=== PATIENT | female | born 1980 | race Caucasian/White ===

== ENCOUNTER 2022-03-20 11:50 | Inpatient (IN) ==
[2022-03-20] MEDS ORDERED: GI COCKTAIL ED USE PO ONE ×2 (12:06→17:30)
[2022-03-20] MEDS ORDERED: ONDANSETRON INJ 2 MG/ML 2 ML VIAL IV STA (12:06)
[2022-03-20] MEDS ORDERED: SODIUM CHLORIDE 0.9% 1000ML 2,000 ML IV ONE (12:06)
[2022-03-20] MEDS ORDERED: MoRPHine SULFATE 10 MG/ML CARP/VIAL IV STA ×2 (12:06→13:54)
--- NOTE | 2022-03-20 12:18 | Emergency Department Note ---
Impression & Plan Abdominal pain, Transaminitis ED Provider Note NAME: KHARI PARIS AGE: 41 SEX: F : 1980 ARRIVES VIA: Walk-In INFORMANT: Patient ED PROVIDER(S): Austin Zurita DO CHIEF COMPLAINT: abdominal pain HPI: Patient is a 41-year-old female who presents to the ER for crampy abdominal pain that started yesterday midday. She associates it with some intermittent nausea. Does not change with eating or drinking. Denies any headache or change in vision. No chest pain or shortness of breath. No dysuria, urgency, or frequency. Last bowel movement was around 11 AM and was normal. Last menstrual period was 2 years ago as she is on medications for this. She denies any other exacerbating or remitting factors. Pain is a 10 out of 10. ROS: See above HPI for pertinent positives & negatives. A total of 10 systems reviewed and were otherwise negative. PAST MEDICAL HISTORY:See Below PAST SURGICAL HISTORY:See Below FAMILY HISTORY:See Below SOCIAL HISTORY:See Below HOME MEDICATIONS:See Below ALLERGIES:See Below VITALS:See Below PHYSICAL EXAMINATION: GENERAL: Sitting up in bed, alert,, mild distress holding abdomen EYE EXAM: normal conjunctiva. OROPHARYNX: mucous membranes are moist LUNGS: Clear to auscultation. Normal chest wall mechanics HEART: no murmurs, S1 normal and S2 normal ABDOMEN: abdomen soft, non-tender, normo-active bowel sounds, no masses, no rebound or guarding. UPPER EXTREMITIES: upper extremities are grossly normal. LOWER EXTREMITIES: No pitting edema. NEURO EXAM: Normal sensorium, cranial nerves II-XII grossly intact, normal s peech, no gross weakness of arms, no gross weakness of legs. MEDICAL DECISION MAKING: Patient is a 41-year-old female who presents ER for severe abdominal pain. IV was established blood work was obtained.Labs show no significant leukocytosis or anemia. BMP with mild hyponatremia 135. CO2 is slightly low at 19. Moderate transaminitis at 400. Bilirubin was unremarkable. Lipase was normal. UA with small amount hematuria. Patient was given 2 doses of morphine as well as Zofran and fluids. She still have persistent pain. She was fairly tachycardic and hypertensive and very shaky. She does drink alcohol fairly regularly. Question if she is going through withdrawal. She was given a dose of IV Ativan. She was updated bedside. Discussed with the hospitalist for further evaluation as is concerned that she may not be able to take alcohol and with her abdominal pain and the withdrawal would worsen. Triage Nursing notes reviewed. Limited review of prior medical records performed Vital Signs: reviewed and remarkable for no significant abnormalities Differential diagnosis: Differential diagnoses includes but is not limited to gastritis, peptic ulcer disease, GERD, gallbladder disease, pancreatitis, small bowel obstruction, acute coronary syndrome, pericarditis, ischemic bowel, irritable bowel disease, irritable bowel syndrome, appendicitis, diverticulitis, malignancy, hernia, urinary tract infection, torsion, perforation, trauma, infectious. ER treatment provided: See below Diagnostics interpreted by me: ECG: none Cardiac Monitoring: An order was placed for continuous cardiac monitoring. The monitor shows a rate of 101 with sinus rhythm. Laboratory studies: As stated above and show below. Imaging studies: CT abdomen pelvis showed enteritis versus ileus Consultation(s): With Dr. Aiken for further evaluation Procedures: none Critical Care: None Past Med/Surg History Medical History Anxiety and depression Asthma "EPISODIC ASTHMA" NO INHALER Attention deficit disorder (ADD) Bilateral lumbar radiculopathy Bipolar disorder Degenerative disc disease Fibromyalgia GERD (gastroesophageal reflux disease) Hx of migraines Insulin resistance Post traumatic stress disorder Spinal stenosis Surgical History History of cholecystectomy History of discectomy LUMBAR (X 3) History of esophagogastroduodenoscopy (EGD) History of spinal fusion LUMBAR [place] teeth removed Social History Smoking Status: Current every day smoker Tobacco Type: E-cigarettes / Vaping Cigarettes Per Day: quit in her 20s; Second Hand Exposure: No; Hx Alcohol Use: No Hx Substance Use: No Preferred Language: Pakistani Communication Ability: Effective Loan Funder Required: No Beliefs That Will Affect Care: None marital status: single Current Living Situation: Family Current Living Situation Comment: roomate current occupational status: unemployed and disabled Feels Safe at Home: Yes Assistive Devices: None Allergies Allergies Allergy/AdvReac Type Severity Reaction Status Date / Time Sulfa (Sulfonamide Allergy Severe anaphylaxis Verified 12/08/20 13:03 Antibiotics) Home Meds Home Medications Medication Instructions Recorded Confirmed gabapentin 400 mg capsule 400 mg PO TID 06/18/20 12/08/20 meloxicam 7.5 mg tablet (Mobic) 7.5 mg PO DAILY 06/18/20 12/08/20 Results & Data (ED) Vital Signs Vital Signs - 24 hr 03/20/22 11:52 03/20/22 12:25 03/20/22 12:30 Temperature 36.8 C Temperature Source Temporal Artery Scan Pulse Rate 119 H 112 H 116 H Pulse Rate [Apical] Pulse Rate from SpO2 Sensor 111 H Respiratory Rate 20 21 19 Respiratory Effort / Characteristics Respiratory Depth Respiratory Pattern Blood Pressure 159/107 H Blood Pressure [Left Arm] Blood Pressure Mean 124 Blood Pressure Mean [Left Arm] Blood Pressure Position Sitting Pulse Oximetry 97 98 Oxygen Delivery Method Room Air Sepsis Recent Fever Within 48 Hours No Sepsis New/Unexplained Change in Mental Status No Sepsis Action Taken by Nursing No Action Required 03/20/22 13:00 03/20/22 14:04 03/20/22 14:30 Temperature Temperature Source Pulse Rate 102 H 109 H 96 H Pulse Rate [Apical] Pulse Rate from SpO2 Sensor 101 H Respiratory Rate 26 H 19 16 Respiratory Effort / Characteristics Respiratory Depth Respiratory Pattern Blood Pressure 175/144 H 171/129 H Blood Pressure [Left Arm] Blood Pressure Mean 154 143 Blood Pressure Mean [Left Arm] Blood Pressure Position Pulse Oximetry 100 Oxygen Delivery Method Sepsis Recent Fever Within 48 Hours Sepsis New/Unexplained Change in Mental Status Sepsis Action Taken by Nursing 03/20/22 15:44 Temperature Temperature Source Pulse Rate Pulse Rate [Apical] 98 H Pulse Rate from SpO2 Sensor Respiratory Rate 18 Respiratory Effort / Characteristics Non-Labored Spontaneous Respiratory Depth Normal Respiratory Pattern Regular Blood Pressure Blood Pressure [Left Arm] 168/105 H Blood Pressure Mean Blood Pressure Mean [Left Arm] 126 Blood Pressure Position Pulse Oximetry 98 Oxygen Delivery Method Room Air Sepsis Recent Fever Within 48 Hours Sepsis New/Unexplained Change in Mental Status Sepsis Action Taken by Nursing Laboratory Data Result diagrams: 03/20/22 12:15 03/20/22 12:15 Lab Results 03/20/22 03/20/22 03/20/22 Range/Units 12:15 12:15 12:15 WBC 6.60 (4.8-10.8) K/ul RBC 4.65 (3.93-5.22) M/uL Hgb 15.4 (12.0-16.0) g/dl POC Hgb (12.0-16.0) g/dl Hct 43.0 (34.1-44.9) % POC Hct (37-47) % MCV 92.5 (80.0-100.0) fL MCH 33.1 (25.0-34.0) pg MCHC 35.8 (32.0-36.0) g/dL RDW Std Deviation 46.0 (36.4-46.3) fL RDW Coeff of Ellen 13.7 (11.5-14.5) % Plt Count 412 H (130-400) K/uL MPV 9.2 L (9.4-12.3) fL Immature Gran % (Auto) 0.5 % Neut % (Auto) 54.1 % Lymph % (Auto) 38.2 % [place] % (Auto) 5.0 % Eos % (Auto) 0.2 % Baso % (Auto) 2.0 % Neut # (Auto) 3.58 (1.4-6.5) K/uL Lymph # (Auto) 2.52 (1.2-3.4) K/uL [place] # (Auto) 0.33 (0.24-0.82) K/uL Eos # (Auto) 0.01 (0-0.50) K/uL Baso # (Auto) 0.13 (0-0.2) K/uL Immature Gran # (Auto) 0.03 H (0.00-0.02) K/uL POC Sodium (135-144) mmol/L Sodium 135 L (136-145) mmol/L POC Potassium (3.3-5.0) mmol/L Potassium 3.5 (3.5-5.1) mmol/L POC Chloride (101-112) mmol/L Chloride 98 (98-107) mmol/L Carbon Dioxide 19 L (21-32) mmol/L POC Total CO2 (24-31) mmol/L Anion Gap 18 H (3-11) POC Anion Gap (16-25) mmol/L POC BUN (7-18) mg/dl BUN 15 (6-23) mg/dl Creatinine 0.78 (0.6-1.2) mg/dl POC Creatinine (0.6-1.3) mg/dl Est Cr Clr Drug Dosing Not Reportable Est GFR ( Amer) 109.4 ml/min Est GFR (Non-Af Amer) 94.4 ml/min BUN/Creatinine Ratio 19.2 (10-20) Glucose 135 H (70-99(Fasting)) mg/dl POC Glucose (other) (70-99) mg/dl Calcium 8.9 (8.5-10.1) mg/dl POC Ioniz Calcium Martina (1.12-1.32) mmol/l Total Bilirubin 0.9 (0.2-1.0) mg/dl AST 469 H (13-39) U/L ALT 309 H (7-52) U/L Alkaline Phosphatase 168 H (34-104) U/L Total Protein 7.9 (6.0-8.3) gm/dl Albumin 4.8 (3.4-5.0) gm/dl Globulin 3.1 (2.5-4.0) gm/dl Albumin/Globulin Ratio 1.5 (0.9-2) Lipase 78 (11-82) U/L Urine Color Dark Yellow Urine Appearance Clear (Clear) Urine pH 5.5 (4.5-7.5) Ur Specific [place] 1.026 (1.000-1.030) Urine Protein 2+ H (Negative) Urine Glucose (UA) Negative (Negative) Urine Ketones 1+ H (Negative) Urine Blood 3+ H (Negative) Urine Nitrite Negative (Negative) Urine Bilirubin Negative (Negative) Urine Urobilinogen Negative (Negative) Ur Leukocyte Esterase Negative (Negative) Urine WBC (Auto) 1-5 (0-5) /hpf Urine RBC (Auto) 5-10 H (0-4) /hpf U Hyaline Cast (Auto) 0 (0-5) /lpf U Epithel Cells (Auto) 20-30 H (0-5) /lpf Urine Bacteria (Auto) Negative (Negative) Urine Yeast Not Reportable POC Ur Test (NEG) SARS-CoV-2, RNA, NAAT (NEGATIVE) 03/20/22 03/20/22 03/20/22 Range/Units 12:19 12:25 Unknown WBC (4.8-10.8) K/ul RBC (3.93-5.22) M/uL Hgb (12.0-16.0) g/dl POC Hgb 16.3 H (12.0-16.0) g/dl Hct (34.1-44.9) % POC Hct 48 H (37-47) % MCV (80.0-100.0) fL MCH (25.0-34.0) pg MCHC (32.0-36.0) g/dL RDW Std Deviation (36.4-46.3) fL RDW Coeff of Ellen (11.5-14.5) % Plt Count (130-400) K/uL MPV (9.4-12.3) fL Immature Gran % (Auto) % Neut % (Auto) % Lymph % (Auto) % [place] % (Auto) % Eos % (Auto) % Baso % (Auto) % Neut # (Auto) (1.4-6.5) K/uL Lymph # (Auto) (1.2-3.4) K/uL [place] # (Auto) (0.24-0.82) K/uL Eos # (Auto) (0-0.50) K/uL Baso # (Auto) (0-0.2) K/uL Immature Gran # (Auto) (0.00-0.02) K/uL POC Sodium 137 (135-144) mmol/L Sodium (136-145) mmol/L POC Potassium 3.7 (3.3-5.0) mmol/L Potassium (3.5-5.1) mmol/L POC Chloride 103 (101-112) mmol/L Chloride (98-107) mmol/L Carbon Dioxide (21-32) mmol/L POC Total CO2 19 L (24-31) mmol/L Anion Gap (3-11) POC Anion Gap 20.0 (16-25) mmol/L POC BUN 14 (7-18) mg/dl BUN (6-23) mg/dl Creatinine (0.6-1.2) mg/dl POC Creatinine 1.0 (0.6-1.3) mg/dl Est Cr Clr Drug Dosing Est GFR ( Amer) ml/min Est GFR (Non-Af Amer) ml/min BUN/Creatinine Ratio (10-20) Glucose (70-99(Fasting)) mg/dl POC Glucose (other) 146 H (70-99) mg/dl Calcium (8.5-10.1) mg/dl POC Ioniz Calcium Mart[place] 1.04 L (1.12-1.32) mmol/l Total Bilirubin (0.2-1.0) mg/dl AST (13-39) U/L ALT (7-52) U/L Alkaline Phosphatase (34-104) U/L Total Protein (6.0-8.3) gm/dl Albumin (3.4-5.0) gm/dl Globulin (2.5-4.0) gm/dl Albumin/Globulin Ratio (0.9-2) Lipase (11-82) U/L Urine Color Urine Appearance (Clear) Urine pH (4.5-7.5) Ur Specific [place] (1.000-1.030) Urine Protein (Negative) Urine Glucose (UA) (Negative) Urine Ketones (Negative) Urine Blood (Negative) Urine Nitrite (Negative) Urine Bilirubin (Negative) Urine Urobilinogen (Negative) Ur Leukocyte Esterase (Negative) Urine WBC (Auto) (0-5) /hpf Urine RBC (Auto) (0-4) /hpf U Hyaline Cast (Auto) (0-5) /lpf U Epithel Cells (Auto) (0-5) /lpf Urine Bacteria (Auto) (Negative) Urine Yeast POC Ur Test NEG (NEG) SARS-CoV-2, RNA, NAAT NEGATIVE (NEGATIVE) Administered Medications Discontinued Medications Al Hydrox/Mg Hydrox/Simethicone (Gi Cocktail Ed Use) 1 dose PO ONE ONE Stop: 03/20/22 12:07 Last Admin: 03/20/22 12:19 Dose: 1 dose Documented by: [id number] Sodium Chloride (Nss 1000ml) 2,000 mls @ 999 mls/hr IV .Q2H1M ONE Stop: 03/20/22 14:06 Last Infusion: 03/20/22 14:50 Dose: 0 mls/hr Documented by: [id number] Admin: 03/20/22 12:16 Dose: 999 mls/hr Documented by: [id number] Ioversol (Optiray 320 100ml) 94 ml IV ONCE ONE Stop: 03/20/22 13:41 Last Admin: 03/20/22 13:40 Dose: 94 ml Documented by: [id number] Lorazepam (Lorazepam 2 Mg/1 Ml Vial) 1 mg IV NOW STA; Protocol Stop: 03/20/22 15:13 Last Admin: 03/20/22 15:25 Dose: 1 mg Documented by: [id number] Morphine Sulfate (Morphine Sulfate 10 Mg/Ml Carp/Vial) 6 mg IV NOW STA Stop: 03/20/22 12:07 Last Admin: 03/20/22 12:15 Dose: 6 mg Documented by: [id number] Morphine Sulfate (Morphine Sulfate 10 Mg/Ml Carp/Vial) 6 mg IV NOW STA Stop: 03/20/22 13:55 Last Admin: 03/20/22 14:02 Dose: 6 mg Documented by: [id number] Ondansetron HCl (Ondansetron Inj 2 Mg/Ml 2 Ml Vial) 4 mg IV NOW STA Stop: 03/20/22 12:07 Last Admin: 03/20/22 12:15 Dose: 4 mg Documented by: [id number] Imaging Data Radiologist's Impression: Abdomen/Pelvis CT 03/20/22 12:06 CT abd pelvis IV con only CLINICAL HISTORY: Generalized abdominal pain for one day with worsening symptoms COMPARISON STUDY: No previous studies for comparison. CT DOSE: 1045.95 mGycm TECHNIQUE: Standard CT of the Abdomen and Pelvis was performed with IV contrast. A dose lowering technique was utilized adhering to the principles of ALARA. Contrast Volume: Optiray 320, 94 ml. The patient did not receive oral contrast. FINDINGS: Lung base: The lung bases are clear. Abdominal cavity: There is no evidence for abdominal mass, adenopathy or ascites. Liver: There is homogeneous fatty infiltration of the liver parenchyma. The liver is mildly to moderately enlarged. There is no evidence for enhancing mass lesion. Spleen: There is homogeneous attenuation of the splenic parenchyma. There is no enhancing mass lesion. Pancreas: There is homogeneous attenuation of the pancreatic parenchyma. There is no evidence for mass lesion or peripancreatic fluid collection. Gall Bladder: Surgical clips are present. Adrenal glands: The adrenal glands are normal in size and attenuation. There is no evidence for enhancing mass lesion. Kidneys: There is homogeneous attenuation of the renal parenchyma bilaterally. There is no evidence for renal calculus or hydronephrosis. There is no evidence for enhancing mass. Bowel: There are fluid-filled loops of small bowel present throughout the abdomen and pelvis without evidence for disproportionate dilatation or obstruction. The findings are most characteristic of an ileus versus gastroenteritis. There is no evidence for mass lesion. There is fecal material seen within the colon. There is suspicion of mild mucosal thickening of the colon as well. However, no evidence for pericolonic edema or inflammatory changes are present. There are no inflammatory changes present. There is no evidence for free air. Bladder: Bladder is partially contracted with thickening of the bladder wall. No focal bladder wall mass is seen. : There is no evidence for pelvic mass or adenopathy. There is no evidence for pelvic ascites. Vasculature: There is no evidence for aneurysmal dilatation of the abdominal aor ta. Osseous structures: There is no acute osseous pathology. The patient is status post previous surgery and internal fixation. IMPRESSION: 1. CT findings most characteristic of a small bowel ileus versus gastroenteritis. 2. Mild mucosal thickening of the colon is also suspected. 3. Contraction of the bladder with mild thickening of bladder wall. 4. Additional nonacute findings as delineated above. ACT 112: Negative or not required by law. Electronically signed by: Armand Keller M.D. 03/20/2022 2:32 PM Discharge Plan Visit Data Chief Complaint: Abdominal Pain Stated Complaint: ABD PAIN ED Provider: Austin Zurita Discharge Problem: Abdominal pain, Transaminitis Forms Stand Alone Forms: [facility] Prescriptions Prescriptions: No Action gabapentin 400 mg Capsule 400 mg PO TID RF: 0 meloxicam [Mobic] 7.5 mg Tablet 7.5 mg PO DAILY RF: 0 Referrals Referrals: PCP,NO [Primary Care Provider] -
[2022-03-20 12:31] LABS: iSTAT Hemoglobin 16.3 g/dl (12.0-16.0); iSTAT Ionized Calcium 1.04 mmol/l (1.12-1.32); iSTAT Potassium 3.7 mmol/L (3.3-5.0)
[2022-03-20 12:35] LABS: Basophils # (auto) 0.13 K/uL (0-0.2); Eosinophils # (auto) 0.01 K/uL (0-0.50); Eosinophils % (auto) 0.2 %; Hemoglobin 15.4 g/dl (12.0-16.0); Immature Granulocytes # (auto) 0.03 K/uL (0.00-0.02); Immature Granulocytes % (auto) 0.5 %; Lymphocytes # (auto) 2.52 K/uL (1.2-3.4); Lymphocytes % (auto) 38.2 %; Mean Corpuscular Hemoglobin 33.1 pg (25.0-34.0); Mean Corpuscular Hgb Conc 35.8 g/dL (32.0-36.0); Mean Corpuscular Volume 92.5 fL (80.0-100.0); Mean Platelet Volume 9.2 fL (9.4-12.3); Monocytes # (auto) 0.33 K/uL (0.24-0.82); Neutrophils # (auto) 3.58 K/uL (1.4-6.5); Neutrophils % (auto) 54.1 %; Platelet Count 412 K/uL (130-400); RDW Coefficient of Variation 13.7 % (11.5-14.5); Red Blood Count 4.65 M/uL (3.93-5.22)
[2022-03-20 12:48] LABS: Appearance Urine Clear (Clear); Bacteria Urine Automated Negative (Negative); Bilirubin Urine Negative (Negative); Blood Urine 3+ (Negative); Cast Urine Automated 0 /lpf (0-5); Color Urine Dark Yellow; Epithelial Cell Urine Auto 20-30 /lpf (0-5); Glucose Urine UA Negative (Negative); Ketones Urine 1+ (Negative); Leukocyte Esterase Urine Negative (Negative); Nitrite Urine Negative (Negative); Protein Urine 2+ (Negative); Specific Gravity Urine 1.026 (1.000-1.030); Urobilinogen Urine Negative (Negative); pH Urine 5.5 (4.5-7.5)
[2022-03-20 13:02] LABS: Alanine Aminotransferase 309 U/L (7-52); Albumin Globulin Ratio 1.5 (0.9-2); Albumin Level 4.8 gm/dl (3.4-5.0); Alkaline Phosphatase 168 U/L (34-104); Anion Gap 18 (3-11); Aspartate Aminotransferase 469 U/L (13-39); BUN Creatinine Ratio 19.2 (10-20); Bilirubin,Total 0.9 mg/dl (0.2-1.0); Blood Urea Nitrogen 15 mg/dl (6-23); Calcium 8.9 mg/dl (8.5-10.1); Carbon Dioxide 19 mmol/L (21-32); Chloride 98 mmol/L (98-107); Est GFR (African American) 109.4 ml/min; Est GFR (Non-African American) 94.4 ml/min; Globulin 3.1 gm/dl (2.5-4.0); Glucose 135 mg/dl (70-99(Fasting)); Lipase 78 U/L (11-82); Potassium 3.5 mmol/L (3.5-5.1); Sodium 135 mmol/L (136-145); Total Protein 7.9 gm/dl (6.0-8.3)
[2022-03-20] MEDS ORDERED: OPTIRAY 320 100ml IV ONE (13:40)
--- NOTE | 2022-03-20 14:34 | CT Scan Report ---
CT abd pelvis IV con only CLINICAL HISTORY: Generalized abdominal pain for one day with worsening symptoms COMPARISON STUDY: No previous studies for comparison. CT DOSE: 1045.95 mGycm TECHNIQUE: Standard CT of the Abdomen and Pelvis was performed with IV contrast. A dose lowering viri hnique was utilized adhering to the principles of ALARA. Contrast Volume: Optiray 320, 94 ml. The patient did not receive oral contrast. FINDINGS: Lung base: The lung bases are clear. Abdominal cavity: There is no evidence for abdominal mass, adenopathy or ascites. Liver: There is homogeneous fatty infiltration of the liver parenchyma. The liver is mildly to modera tely enlarged. There is no evidence for enhancing mass lesion. Spleen: There is homogeneous attenuation of the splenic parenchyma. There is no enhancing mass lesion . Pancreas: There is homogeneous attenuation of the pancreatic parenchyma. There is no evidence for mas s lesion or peripancreatic fluid collection. Gall Bladder: Surgical clips are present. Adrenal glands: The adrenal glands are normal in size and attenuation. There is no evidence for enhan cing mass lesion. Kidneys: There is homogeneous attenuation of the renal parenchyma bilaterally. There is no evidence f or renal calculus or hydronephrosis. There is no evidence for enhancing mass. Bowel: There are fluid-filled loops of small bowel present throughout the abdomen and pelvis without evidence for disproportionate dilatation or obstruction. The findings are most characteristic of an i leus versus gastroenteritis. There is no evidence for mass lesion. There is fecal material seen withi n the colon. There is suspicion of mild mucosal thickening of the colon as well. However, no evidence for pericolonic edema or inflammatory changes are present. There are no inflammatory changes present . There is no evidence for free air. Bladder: Bladder is partially contracted with thickening of the bladder wall. No focal bladder wall m ass is seen. : There is no evidence for pelvic mass or adenopathy. There is no evidence for pelvic ascites. Vasculature: There is no evidence for aneurysmal dilatation of the abdominal aorta. Osseous structures: There is no acute osseous pathology. The patient is status post previous surgery and internal fixation. IMPRESSION: 1. CT findings most characteristic of a small bowel ileus versus gastroenteritis. 2. Mild mucosal thickening of the colon is also suspected. 3. Contraction of the bladder with mild thickening of bladder wall. 4. Additional nonacute findings as delineated above. ACT 112: Negative or not required by law. Electronically signed by: Armand Keller M.D. 03/20/2022 2:32 PM
[2022-03-20] MEDS ORDERED: LORazepam 2 MG/1 ML VIAL IV STA (15:12)
--- NOTE | 2022-03-20 16:02 | History & Physical Report ---
Date of Service March 20, 2022 Assessment & Plan (1) Abdominal pain: Plan: Differential includes gastritis, possibly infectious versus alcoholic. Transaminitis not consistent with an alcoholic pattern or cholestasis. Presence of ileus likely reactive. Admit to a monitored bed Okay to repeat a GI cocktail, will start Protonix 40 mg IV every 12 hours Changed to Dilaudid 1 mg every 6 hours Clear liquid diet if tolerated, otherwise n.p.o. Check right upper quadrant ultrasound. Of note, patient is status post previous cholecystectomy Check acute hepatitis panel Check coags stat. Follow LFTs. We will ask GI to evaluate further recommendations, consider EGD if gastritis is a concern (2) Chronic alcohol abuse: Plan: As noted above, transaminitis not consistent with alcoholic pattern but patient is certainly at risk for acute alcohol withdrawal Keep patient on the monitor bed WAAS scale ordered with IV Ativan Will start banana bag in ER, can record changer assembler to oral B12 and folate supplementation if patient is able to tolerate Consider social work coordinator consultation prior to discharge to discuss alcohol cessation resources History of Present Illness Chief Complaint: abd pain Primary Care Provider: NO PCP This is a 41-year-old female with past medical history of chronic alcoholism that presents today complaining of abdominal pain. Patient is a decent historian but this is limited by significant pain on the part of the patient. Patient tells me she started with significant abdominal pain yesterday afternoon around 4:00. She says the pain is throughout her entire abdomen but seems to be worse in the epigastric area. She has had no nausea or vomiting. She has had some chills but no overt fever. She tells me her appetite is unaffected and she is in fact quite hungry but he previously declined to eat when asked by the ER physician. Patient typically consumes significant mount of alcohol, was here very recently with a DUI and had admitted to consuming a bottle of vodka daily. However, she tells me she only had a little bit of alcohol on 15 March and a glass of wine overnight to help with the pain. In the ER, patient has had 14 mg total of morphine with no relief. She did have a GI cocktail which she did feel had helped and is asking for repeat dose of this. Of note, the patient's LFTs are elevated as noted. Coags were not done but were ordered stat. Imaging showed possible ileus or gastroenteritis. She is status post cholecystectomy previously. Patient is now being mated for significant abdominal pain. Allergies Allergy/AdvReac Type Severity Reaction Status Date / Time Sulfa (Sulfonamide Allergy Severe anaphylaxis Verified 12/08/20 13:03 Antibiotics) Home Medications Medication Instructions Recorded Confirmed Type gabapentin 400 mg capsule 400 mg PO TID 06/18/20 12/08/20 History meloxicam 7.5 mg tablet (Mobic) 7.5 mg PO DAILY 06/18/20 12/08/20 History Past Med/Surg History Medical History Anxiety and depression Asthma "EPISODIC ASTHMA" NO INHALER Attention deficit disorder (ADD) Bilateral lumbar radiculopathy Bipolar disorder Degenerative disc disease Fibromyalgia GERD (gastroesophageal reflux disease) Hx of migraines Insulin resistance Post traumatic stress disorder Spinal stenosis Surgical History History of cholecystectomy History of discectomy LUMBAR (X 3) History of esophagogastroduodenoscopy (EGD) History of spinal fusion LUMBAR [place] teeth removed Social History Smoking Status: Current every day smoker Tobacco Type: E-cigarettes / Vaping Cigarettes Per Day: quit in her 20s; Second Hand Exposure: No; Hx Alcohol Use: No Hx Substance Use: No Preferred Language: Beninese Communication Ability: Effective Service Specialist Required: No Beliefs That Will Affect Care: None marital status: single Current Living Situation: Family Current Living Situation Comment: roomate current occupational status: unemployed and disabled Feels Safe at Home: Yes Assistive Devices: None Review of Systems Constitutional: no fever, no chills, no weakness, no weight loss and no weight gain Eyes: as per Subjective / HPI Respiratory: no cough, no chest congestion, no dyspnea and no dyspnea on exertion Cardiovascular: no chest pain, no orthopnea, no palpitations, no lightheadedness and no edema Gastrointestinal: + abdominal pain and + cramping; no heartburn, no nausea, no vomiting, no pain with swallowing, no dysphagia, no constipation and no diarrhea/loose stools Genitourinary: no dysuria, no difficulty urinating, no urinary frequency, no urinary hesitancy, no urinary urgency and no flank pain Musculoskeletal: no back pain, no neck pain, no joint pain, no stiffness and no myalgia Integumentary: no rash Neurologic: no gait abnormality, no unsteadiness, no falls and no generalized weakness Physical Exam Constitutional: + acute distress (due to pain) and cooperative Neck: trachea midline, no thyromegaly Respiratory: normal respiratory effort Auscultation: lungs clear to auscultation bilaterally; no crackles, no rales, no rhonchi and no wheezes Cardiovascular: Rate/Rhythm: regular rate and regular rhythm Heart Sounds: normal S1, normal S2 and + murmur Gastrointestinal (Abdomen): Inspection/Auscultation: + hypoactive bowel sounds Percussion/Palpation: abdomen soft and + hepatomegaly; abdomen nontender, no guarding, abdomen not rigid, no hepatosplenomegaly and no ascites Skin: no rashes, warm and dry (nonjaundiced, anicteric) Results & Data Results & Data ([facility]) Vital Signs (Past 12 Hours) Vital Signs Temp Pulse Pulse Resp BP BP Pulse Ox 03/20/22 15:44 98 H 18 168/105 H 98 03/20/22 14:30 96 H 16 03/20/22 14:04 109 H 19 171/129 H 03/20/22 13:00 102 H 26 H 175/144 H 100 03/20/22 12:30 116 H 19 03/20/22 12:25 112 H 21 98 03/20/22 11:52 36.8 C 119 H 20 159/107 H 97 Laboratory Results Laboratory Results WBC 6.60 K/ul (4.8-10.8) 03/20/22 12:15 RBC 4.65 M/uL (3.93-5.22) 03/20/22 12:15 Hgb 15.4 g/dl (12.0-16.0) 03/20/22 12:15 POC Hgb 16.3 g/dl (12.0-16.0) H 03/20/22 12:19 Hct 43.0 % (34.1-44.9) 03/20/22 12:15 POC Hct 48 % (37-47) H 03/20/22 12:19 MCV 92.5 fL (80.0-100.0) 03/20/22 12:15 MCH 33.1 pg (25.0-34.0) 03/20/22 12:15 MCHC 35.8 g/dL (32.0-36.0) 03/20/22 12:15 RDW Std Deviation 46.0 fL (36.4-46.3) 03/20/22 12:15 RDW Coeff of Ellen 13.7 % (11.5-14.5) 03/20/22 12:15 Plt Count 412 K/uL (130-400) H 03/20/22 12:15 MPV 9.2 fL (9.4-12.3) L 03/20/22 12:15 Immature Gran % (Auto) 0.5 % 03/20/22 12:15 Neut % (Auto) 54.1 % 03/20/22 12:15 Lymph % (Auto) 38.2 % 03/20/22 12:15 [place] % (Auto) 5.0 % 03/20/22 12:15 Eos % (Auto) 0.2 % 03/20/22 12:15 Baso % (Auto) 2.0 % 03/20/22 12:15 Neut # (Auto) 3.58 K/uL (1.4-6.5) 03/20/22 12:15 Lymph # (Auto) 2.52 K/uL (1.2-3.4) 03/20/22 12:15 [place] # (Auto) 0.33 K/uL (0.24-0.82) 03/20/22 12:15 Eos # (Auto) 0.01 K/uL (0-0.50) 03/20/22 12:15 Baso # (Auto) 0.13 K/uL (0-0.2) 03/20/22 12:15 Immature Gran # (Auto) 0.03 K/uL (0.00-0.02) H 03/20/22 12:15 POC Sodium 137 mmol/L (135-144) 03/20/22 12:19 Sodium 135 mmol/L (136-145) L 03/20/22 12:15 POC Potassium 3.7 mmol/L (3.3-5.0) 03/20/22 12:19 Potassium 3.5 mmol/L (3.5-5.1) 03/20/22 12:15 POC Chloride 103 mmol/L (101-112) 03/20/22 12:19 Chloride 98 mmol/L (98-107) 03/20/22 12:15 Carbon Dioxide 19 mmol/L (21-32) L 03/20/22 12:15 POC Total CO2 19 mmol/L (24-31) L 03/20/22 12:19 Anion Gap 18 (3-11) H 03/20/22 12:15 POC Anion Gap 20.0 mmol/L (16-25) 03/20/22 12:19 POC BUN 14 mg/dl (7-18) 03/20/22 12:19 BUN 15 mg/dl (6-23) 03/20/22 12:15 Creatinine 0.78 mg/dl (0.6-1.2) 03/20/22 12:15 POC Creatinine 1.0 mg/dl (0.6-1.3) 03/20/22 12:19 Est Cr Clr Drug Dosing Not Reportable 03/20/22 12:15 Est GFR ( Amer) 109.4 ml/min 03/20/22 12:15 Est GFR (Non-Af Amer) 94.4 ml/min 03/20/22 12:15 BUN/Creatinine Ratio 19.2 (10-20) 03/20/22 12:15 Glucose 135 mg/dl (70-99(Fasting)) H 03/20/22 12:15 POC Glucose (other) 146 mg/dl (70-99) H 03/20/22 12:19 Calcium 8.9 mg/dl (8.5-10.1) 03/20/22 12:15 POC Ioniz Calcium Martina 1.04 mmol/l (1.12-1.32) L 03/20/22 12:19 Total Bilirubin 0.9 mg/dl (0.2-1.0) 03/20/22 12:15 AST 469 U/L (13-39) H 03/20/22 12:15 ALT 309 U/L (7-52) H 03/20/22 12:15 Alkaline Phosphatase 168 U/L (34-104) H 03/20/22 12:15 Total Protein 7.9 gm/dl (6.0-8.3) 03/20/22 12:15 Albumin 4.8 gm/dl (3.4-5.0) 03/20/22 12:15 Globulin 3.1 gm/dl (2.5-4.0) 03/20/22 12:15 Albumin/Globulin Ratio 1.5 (0.9-2) 03/20/22 12:15 Lipase 78 U/L (11-82) 03/20/22 12:15 Urine Color Dark Yellow 03/20/22 12:15 Urine Appearance Clear (Clear) 03/20/22 12:15 Urine pH 5.5 (4.5-7.5) 03/20/22 12:15 Ur Specific [place] 1.026 (1.000-1.030) 03/20/22 12:15 Urine Protein 2+ (Negative) H 03/20/22 12:15 Urine Glucose (UA) Negative (Negative) 03/20/22 12:15 Urine Ketones 1+ (Negative) H 03/20/22 12:15 Urine Blood 3+ (Negative) H 03/20/22 12:15 Urine Nitrite Negative (Negative) 03/20/22 12:15 Urine Bilirubin Negative (Negative) 03/20/22 12:15 Urine Urobilinogen Negative (Negative) 03/20/22 12:15 Ur Leukocyte Esterase Negative (Negative) 03/20/22 12:15 Urine WBC (Auto) 1-5 /hpf (0-5) 03/20/22 12:15 Urine RBC (Auto) 5-10 /hpf (0-4) H 03/20/22 12:15 U Hyaline Cast (Auto) 0 /lpf (0-5) 03/20/22 12:15 U Epithel Cells (Auto) 20-30 /lpf (0-5) H 03/20/22 12:15 Urine Bacteria (Auto) Negative (Negative) 03/20/22 12:15 Urine Yeast Not Reportable 03/20/22 12:15 POC Ur Test NEG (NEG) 03/20/22 12:25 SARS-CoV-2, RNA, NAAT NEGATIVE (NEGATIVE) 03/20/22 Unknown Impressions Abdomen/Pelvis CT 03/20/22 12:06 CT abd pelvis IV con only CLINICAL HISTORY: Generalized abdominal pain for one day with worsening symptoms COMPARISON STUDY: No previous studies for comparison. CT DOSE: 1045.95 mGycm TECHNIQUE: Standard CT of the Abdomen and Pelvis was performed with IV contrast. A dose lowering technique was utilized adhering to the principles of ALARA. Contrast Volume: Optiray 320, 94 ml. The patient did not receive oral contrast. FINDINGS: Lung base: The lung bases are clear. Abdominal cavity: There is no evidence for abdominal mass, adenopathy or ascites. Liver: There is homogeneous fatty infiltration of the liver parenchyma. The liver is mildly to moderately enlarged. There is no evidence for enhancing mass lesion. Spleen: There is homogeneous attenuation of the splenic parenchyma. There is no enhancing mass lesion. Pancreas: There is homogeneous attenuation of the pancreatic parenchyma. There is no evidence for mass lesion or peripancreatic fluid collection. Gall Bladder: Surgical clips are present. Adrenal glands: The adrenal glands are normal in size and attenuation. There is no evidence for enhancing mass lesion. Kidneys: There is homogeneous attenuation of the renal parenchyma bilaterally. There is no evidence for renal calculus or hydronephrosis. There is no evidence for enhancing mass. Bowel: There are fluid-filled loops of small bowel present throughout the abdomen and pelvis without evidence for disproportionate dilatation or obstruction. The findings are most characteristic of an ileus versus gastroenteritis. There is no evidence for mass lesion. There is fecal material seen within the colon. There is suspicion of mild mucosal thickening of the colon as well. However, no evidence for pericolonic edema or inflammatory changes are present. There are no inflammatory changes present. There is no evidence for free air. Bladder: Bladder is partially contracted with thickening of the bladder wall. No focal bladder wall mass is seen. : There is no evidence for pelvic mass or adenopathy. There is no evidence for pelvic ascites. Vasculature: There is no evidence for aneurysmal dilatation of the abdominal aorta. Osseous structures: There is no acute osseous pathology. The patient is status post previous surgery and internal fixation. IMPRESSION: 1. CT findings most characteristic of a small bowel ileus versus gastroenteritis. 2. Mild mucosal thickening of the colon is also suspected. 3. Contraction of the bladder with mild thickening of bladder wall. 4. Additional nonacute findings as delineated above. ACT 112: Negative or not required by law. Electronically signed by: Armand Keller M.D. 03/20/2022 2:32 PM Code Status & VTE Plan VTE Prophylaxis Plan VTE Prophylaxis will be ordered: No PG Care Time/CCT Total # of Minutes Spent Total Time Spent with Patient: Total time spent is greater than 50% in coordination of care (as documented) at patient's floor/unit and/or counseling patient: Coding Level of Care Code 14221 Initial Inpt Care Lvl 3 Diagnoses Chronic alcohol abuse F10.10 Abdominal pain R10.9
[2022-03-20 16:28] LABS: INR 1.2 (0.9-1.1); Prothrombin Time 12.3 Seconds (9.0-12.0)
[2022-03-20] MEDS ORDERED: LORazepam 1 MG TAB PO PRN (17:07)
[2022-03-20] MEDS ORDERED: ONDANSETRON INJ 2 MG/ML 2 ML VIAL IV PRN (17:07)
[2022-03-20] MEDS ORDERED: ATIVAN IV ALCOHOL WITHDRAWL IV PRN (17:07)
[2022-03-20] MEDS: HYDROmorphone INJ 1 MG/ML SYRINGE IV PRN (17:29)
[2022-03-20] MEDS ORDERED: MULTI-VITAMIN INFUSION 10 ML, THIAMINE HCL 100 MG, FOLIC ACID 1 MG in SODIUM CHLORIDE 0... IV ONE (17:30)
[2022-03-20] MEDS: FOLIC ACID 1 MG TAB PO SCH (18:32)
[2022-03-20] MEDS: THIAMINE HCL 100 MG TAB PO SCH (18:33)
[2022-03-20] MEDS: LORazepam 2 MG in SYRINGE 1 ML IV PRN (18:33)
[2022-03-20] MEDS ORDERED: GI Cocktail Single dose PO ONE (18:45)
[2022-03-20] MEDS: ONDANSETRON 4 MG OD TAB PO PRN (19:30)
[2022-03-20] MEDS ORDERED: MoRPHine SULFATE 2 MG/ML CARP IV STA (21:55)
[2022-03-20] MEDS: FLUTICASONE PROPIONATE NA SPR 16 GM BTL NAE SCH (21:56)
[2022-03-20] MEDS: LORazepam 3 MG in SYRINGE 1.5 ML IV PRN (21:56)
[2022-03-20] MEDS: PANTOprazole 40 MG in SYRINGE 0 ML IV SCH (21:56)
[2022-03-20] MEDS: SODIUM CHLORIDE 0.9% 1000ML 1,000 ML IV SCH (21:56)
[2022-03-20] MEDS: traZODone HCL 100 MG TAB PO SCH (22:11)
[2022-03-20] MEDS: GABAPENTIN 400 MG CAP PO SCH (22:11)
[2022-03-21] MEDS: LORazepam 1 MG in SYRINGE 0.5 ML IV PRN ×3 (01:25→20:14)
[2022-03-21] MEDS: HYDROmorphone INJ 1 MG/ML SYRINGE IV PRN ×4 (05:39→23:35)
[2022-03-21] MEDS: ONDANSETRON 4 MG OD TAB PO PRN (05:48)
[2022-03-21] MEDS ORDERED: ALUMINUM/MAGNESIUM SUSP 18 ML, LIDOCAINE VISCOUS 2% SOLN 6 ML, BARCODE IDENTIFIER 1 EACH PO ONE (06:32)
[2022-03-21 07:02] LABS: Alanine Aminotransferase 273 U/L (7-52); Albumin Globulin Ratio 1.6 (0.9-2); Albumin Level 4.1 gm/dl (3.4-5.0); Alkaline Phosphatase 149 U/L (34-104); Anion Gap 12 (3-11); Aspartate Aminotransferase 354 U/L (13-39); BUN Creatinine Ratio 17.5 (10-20); Bilirubin,Total 1.4 mg/dl (0.2-1.0); Blood Urea Nitrogen 11 mg/dl (6-23); Calcium 7.2 mg/dl (8.5-10.1); Carbon Dioxide 22 mmol/L (21-32); Chloride 103 mmol/L (98-107); Chol HDL Ratio 3.5 (0-5); Cholesterol 198 mg/dl (0-200); Creatinine Clr Calc Pharmacy 147.6 ml/min; Est GFR (African American) 129.1 ml/min; Est GFR (Non-African American) 111.4 ml/min; Globulin 2.5 gm/dl (2.5-4.0); Glucose 99 mg/dl (70-99(Fasting)); HDL Cholesterol 56 mg/dl; Magnesium 2.2 mg/dl (1.7-2.4); Potassium 3.2 mmol/L (3.5-5.1); Sodium 137 mmol/L (136-145); Total Protein 6.6 gm/dl (6.0-8.3); Triglycerides 593 mg/dl (0-150)
[2022-03-21] MEDS: amLODIPine BESYLATE 5 MG TAB PO SCH (07:16)
[2022-03-21] MEDS: hydroCHLOROthiazide 25 MG TAB PO SCH (07:16)
[2022-03-21] MEDS: FOLIC ACID 1 MG TAB PO SCH (07:16)
[2022-03-21] MEDS: PANTOprazole 40 MG in SYRINGE 0 ML IV SCH ×2 (07:17→20:13)
[2022-03-21] MEDS: carBAMazepine 200 MG TABLET PO SCH (07:17)
[2022-03-21] MEDS: BENZTROPINE MESYLATE 0.5 MG TAB PO SCH (07:17)
[2022-03-21] MEDS: THIAMINE HCL 100 MG TAB PO SCH (07:17)
[2022-03-21] MEDS: FLUTICASONE PROPIONATE NA SPR 16 GM BTL NAE SCH ×2 (07:24→20:12)
[2022-03-21] MEDS: GABAPENTIN 400 MG CAP PO SCH ×3 (08:24→20:12)
[2022-03-21] MEDS: AMPHETAMINE ASP/SULF/DEXTRAMPH 20 MG TAB PO SCH (09:00)
[2022-03-21] MEDS: SODIUM CHLORIDE 0.9% 1000ML 1,000 ML IV SCH ×3 (09:26→20:13)
--- NOTE | 2022-03-21 10:28 | Ultrasound Report ---
US liver LIMITED ABDOMEN AND CLINICAL HISTORY: abdominal pain. COMPARISON: CT of the abdomen and pelvis from 03/20/2022 TECHNIQUE: Multiple grayscale and color images of the right upper quadrant of the abdomen. FINDINGS: Pancreas: The pancreas is within normal limits with no focal mass or peripancreatic fluid collection identified. Liver: There is hepatomegaly with diffuse fatty infiltration of the liver as seen on CT. There is no evidence for a focal mass. There is no intrahepatic biliary duct dilatation. Gallbladder: The patient is again status post cholecystectomy. Common Bile Duct: (CBD): It is normal in size measuring 7 mm Inferior Vena Cava (IVC): The imaged IVC is patent. Right kidney: There is no evidence for hydronephrosis, calculus or gross renal mass. The kidney is no rmal in size. It measures 11.6 cm in greatest length. IMPRESSION: 1. Ultrasound confirms presence of hepatomegaly with diffuse fatty infiltration of the liver. ACT 112: Negative or not required by law. Electronically signed by: Armand Keller M.D. 03/21/2022 10:26 AM
[2022-03-21] MEDS: LORazepam 3 MG in SYRINGE 1.5 ML IV PRN (10:47)
[2022-03-21] MEDS: AMPHETAMINE ASP/SULF/DEXTRAMPH 10 MG TAB PO SCH (12:12)
--- NOTE | 2022-03-21 13:02 | Gastrointestinal Consultation ---
Date of Consultation March 21, 2022 Assessment & Plan (1) Chronic alcohol abuse: (2) Abdominal pain: (3) Gastroenteritis: (4) Abnormal LFTs: abnormal CT scan showing gastroenteritis in the setting of acute abdominal pains and alcohol abuse recs: --continue clear liquid diet today, IVFs, supportive care --agree with hepatitis workup; suspect her LFT elevations are multifactorial from ETOH and obesity --strict alcohol cessation, consider outpt rehab --10% weight loss through diet and exercise, consider nutrition evaluation --protonix 40 mg daily --if continues to improve, can advance diet as tolerated tomorrow morning. Thank you for allowing me to participate in the care of this patient History of Present Illness Attending Physician: Elif Hernandez MD History of Present Illness 41-year-old female with hx alcohol abuse here with abdominal pains. She was hospitalized recently with DUI and at the time was drinking a bottle of vodka daily. She still is drinking but not as much per her report. Abdominal pains started yesterday and were epigastric, with nausea/vomiting, she has been eating well still no change in appetite. transaminitis noted on LFTs and hepatomegaly on imaging, mother of cirrhosis. imaging also shows ileus vs. gastroenteritis. currently her pains are controlled with pain medication, tolerating a clear liquid diet. She does use meloxicam for back pains and fibromyalgia. CBC and CMP reviewed. Allergies Allergy/AdvReac Type Severity Reaction Status Date / Time Sulfa (Sulfonamide Allergy Severe anaphylaxis Verified 03/20/22 16:27 Antibiotics) Home Medications Medication Instructions Recorded Confirmed Type gabapentin 400 mg capsule 400 mg PO TID 06/18/20 03/20/22 History amlodipine 10 mg tablet 10 mg PO DAILY 03/20/22 03/20/22 History benztropine 0.5 mg tablet 0.5 mg PO DAILY 03/20/22 03/20/22 History brexpiprazole 0.5 mg tablet 0.5 mg PO DAILY 03/20/22 03/20/22 History (Rexulti) brexpiprazole 1 mg tablet (Rexulti) 1 mg PO DAILY 03/20/22 03/20/22 History calcium-magnesium 750 mg-465 mg 1 tab PO DAILY 03/20/22 03/20/22 History tablet carbamazepine 200 mg tablet 600 mg PO QAM 03/20/22 03/20/22 History clomipramine 25 mg capsule 25 mg PO HS 03/20/22 03/20/22 History cyanocobalamin (vitamin B-12) 100 0 mcg PO 3XWK 03/20/22 03/20/22 History mcg tablet (Vitamin B-12) dextroamphetamine-amphetamine 20 10 mg PO .QNOON 03/20/22 03/20/22 History mg tablet dextroamphetamine-amphetamine 20 20 mg PO QAM 03/20/22 03/20/22 History mg tablet fluticasone propionate 50 2 spray INTRANASAL BID 03/20/22 03/20/22 History mcg/actuation nasal spray,suspension hydrochlorothiazide 12.5 mg capsule 12.5 mg PO DAILY 03/20/22 03/20/22 History lorazepam 1 mg tablet 1 mg PO HS PRN 03/20/22 03/20/22 History medroxyprogesterone 150 mg/mL 150 mg IM .Q3MO 03/20/22 03/20/22 History intramuscular suspension meloxicam 7.5 mg tablet 7.5 mg PO DAILY 03/20/22 03/20/22 History multivitamin 1 tab PO DAILY 03/20/22 03/20/22 History multivitamin with minerals 1 tab PO DAILY 03/20/22 03/20/22 History (Hair,Skin and Nails) omeprazole 20 mg capsule,delayed 20 mg PO DAILY 03/20/22 03/20/22 History release ondansetron HCl 4 mg tablet 4 mg PO Q8 PRN 03/20/22 03/20/22 History trazodone 50 mg tablet 100 mg PO HS 03/20/22 03/20/22 History Patient History Medical History Anxiety and depression Asthma "EPISODIC ASTHMA" NO INHALER Attention deficit disorder (ADD) Bilateral lumbar radiculopathy Bipolar disorder Degenerative disc disease Fibromyalgia GERD (gastroesophageal reflux disease) Hx of migraines Insulin resistance Post traumatic stress disorder Spinal stenosis Surgical History History of cholecystectomy History of discectomy LUMBAR (X 3) History of esophagogastroduodenoscopy (EGD) History of spinal fusion LUMBAR [place] teeth removed Social History Smoking Status: Current every day smoker Tobacco Type: E-cigarettes / Vaping Second Hand Exposure: No; Hx Alcohol Use: Yes Alcohol type: hard liquor Hx Substance Use: No Preferred Language: Occitan Communication Ability: Effective Commercial Lines Account Assistant Required: No Beliefs That Will Affect Care: None marital status: single Current Living Situation: Parent Current Living Situation Comment: roomate current occupational status: unemployed and disabled Feels Safe at Home: Yes Assistive Devices: None Review of Systems Constitutional: no fever, no chills and no weight loss Eyes: as per Subjective / HPI Ear, Nose, Mouth, Throat: as per Subjective / HPI Respiratory: no dyspnea and no dyspnea on exertion Cardiovascular: no chest pain and no palpitations Gastrointestinal: as per Subjective / HPI Musculoskeletal: no joint pain and no swelling Integumentary: no rash and no lesions Neurologic: no numbness and no paresthesia Psychiatric: no depression and no anxiety Endocrine: no fatigue Hematologic / Lymphatic: no easy bleeding and no easy bruising Physical Exam Constitutional: WD/WN, vitals as above Eyes: EOM intact bilaterally Neck: normal visual inspection Respiratory: normal respiratory effort, lungs clear to auscultation Cardiovascular: RRR, no murmur, no edema Gastrointestinal (Abdomen): Inspection/Auscultation: abdomen normal to inspection; abdomen not distended Percussion/Palpation: abdomen soft; abdomen nontender and no hepatosplenomegaly Musculoskeletal: Extremities: no cyanosis Gait: normal gait Skin: no rashes, warm and dry Neurologic: moves all extremities Psychiatric: A+Ox3, euthymic affect Results & Data ([facility]) Vital Signs (Past 12 Hours) Vital Signs Temp Pulse Resp BP Pulse Ox 03/21/22 11:12 37.2 C 128 H 22 150/115 H 97 03/21/22 07:10 36.7 C 19 152/102 H 98 03/21/22 03:26 36.4 C L 116 H 18 140/96 96 03/21/22 01:04 36.7 C 115 H 20 160/107 H 97 PG Care Time/CCT Total # of Minutes Spent Total Time Spent with Patient: Total time spent is greater than 50% in coordination of care (as documented) at patient's floor/unit and/or counseling patient: Coding Level of Care Code 70202 Inpt Consult Level 4 Diagnoses Chronic alcohol abuse F10.10 Abdominal pain R10.9 Gastroenteritis K52.9 Abnormal LFTs R79.89
[2022-03-21] MEDS ORDERED: LORazepam 3 MG in SYRINGE 1.5 ML IV ONE (16:00)
--- NOTE | 2022-03-21 16:02 | Hospitalist Progress Note ---
Date of Service March 21, 2022 Assessment & Plan (1) Abdominal pain: Plan: Most likely due to alcoholic gastritis CT abdomen also shows possible ileus and colitis Patient having normal bowel movement and passing gas Okay to repeat a GI cocktail, will start Protonix 40 mg IV every 12 hours Changed to Dilaudid 1 mg every 6 hours Clear liquid diet if tolerated (2) Alcohol withdrawal: Plan: Admits to recent large volume consumption of vodka Patient now actively withdrawing, tremors on exam Keep patient on the monitor bed WAAS scale ordered with IV Ativan Will start banana bag in ER, can oil changer to oral B12 and folate supplementation if patient is able to tolerate Consider [employer] social worker consultation prior to discharge to discuss alcohol cessation resources (3) Elevated liver enzymes: Plan: RUQ US shows evidence of fatty liver Acute hepatitis panel still pending GI on consult, appreciate recs (4) Chronic alcohol abuse: Plan: Has had a DIU before will need outpatient alcohol rehab Plan: continue hospitalization Admission and Anticipated Discharge Date Admission Date: March 20, 2022 Subjective patient seen and examined, still complains of epigastric pain Review of Systems Review of Systems: All systems reviewed are negative, apart from the ones contained in the history. Physical Exam Physical Exam: The patient is awake, alert and oriented 3, well developed and well nourished, normocephalic and atraumatic, lying in bed and in no acute distress. HEENT--PERRL, EOMI, mucous membranes and oropharynx mildly dry Neck--supple. No JVD. No bruits. Thyroid normal, trachea midline, no adenopathy. Heart--normal S1 and S2. No murmurs, rubs or gallops. Lungs--clear bilaterally, no respiratory distress, no accessory muscle use. Abdomen--normal bowel sounds and soft. Mild epigastric and left sided abdominal pain Extremities--no cyanosis or clubbing. No edema. Dermatologic--normal skin turgor, normal color, no abnormal lymph nodes, no rash. Neurologic--cranial nerves II through XII grossly intact. Rheumatologic--normal range of motion. Psychiatric--normal affect. Results & Data Results & [facility] ([facility]) Vital Signs (Past 12 Hours) Vital Signs Temp Pulse Resp BP Pulse Ox 03/21/22 15:24 98.4 F 118 H 19 154/110 H 96 03/21/22 11:12 99.0 F 128 H 22 150/115 H 97 03/21/22 07:10 98.1 F 19 152/102 H 98 PG Care Time/CCT Total # of Minutes Spent Total Time Spent with Patient: Total time spent is greater than 50% in coordination of care (as documented) at patient's floor/unit and/or counseling patient: Coding Level of Care Code 11183 Subseq Hosp Care Lvl 2 Diagnoses Abdominal pain R10.9 Chronic alcohol abuse F10.10 Alcohol withdrawal F10.939 Elevated liver enzymes R74.8 Time Spent (min) 35
[2022-03-21] MEDS: traZODone HCL 100 MG TAB PO SCH (20:13)
[2022-03-22] MEDS: LORazepam 1 MG in SYRINGE 0.5 ML IV PRN (04:01)
[2022-03-22] MEDS: HYDROmorphone INJ 1 MG/ML SYRINGE IV PRN (05:36)
[2022-03-22] MEDS: SODIUM CHLORIDE 0.9% 1000ML 1,000 ML IV SCH ×2 (06:23→17:03)
[2022-03-22 06:27] LABS: BUN Creatinine Ratio 8.2 (10-20); Calcium 7.1 mg/dl (8.5-10.1); Creatinine Clr Calc Pharmacy 190.7 ml/min; Est GFR (African American) 140.3 ml/min
[2022-03-22] MEDS ORDERED: POTASSIUM CHLORIDE CRTAB 20 MEQ TABCR PO STA (08:07)
[2022-03-22] MEDS: amLODIPine BESYLATE 5 MG TAB PO SCH (08:27)
[2022-03-22] MEDS: carBAMazepine 200 MG TABLET PO SCH (08:28)
[2022-03-22] MEDS: BENZTROPINE MESYLATE 0.5 MG TAB PO SCH (08:28)
[2022-03-22] MEDS: FLUTICASONE PROPIONATE NA SPR 16 GM BTL NAE SCH ×2 (08:29→20:29)
[2022-03-22] MEDS: GABAPENTIN 400 MG CAP PO SCH ×3 (08:29→20:29)
[2022-03-22] MEDS: hydroCHLOROthiazide 25 MG TAB PO SCH (08:29)
[2022-03-22] MEDS: FOLIC ACID 1 MG TAB PO SCH (08:29)
[2022-03-22] MEDS: PANTOprazole 40 MG in SYRINGE 0 ML IV SCH ×2 (08:30→20:29)
[2022-03-22] MEDS: THIAMINE HCL 100 MG TAB PO SCH (08:30)
[2022-03-22] MEDS: AMPHETAMINE ASP/SULF/DEXTRAMPH 20 MG TAB PO SCH (08:47)
[2022-03-22] MEDS: LORazepam 2 MG in SYRINGE 1 ML IV PRN (08:47)
[2022-03-22] MEDS: AMPHETAMINE ASP/SULF/DEXTRAMPH 10 MG TAB PO SCH (12:33)
--- NOTE | 2022-03-22 12:35 | Hospitalist Progress Note ---
Date of Service March 22, 2022 Assessment & Plan (1) Abdominal pain: Plan: Most likely due to alcoholic gastritis CT abdomen also shows possible ileus and colitis Patient having normal bowel movement and passing gas Okay to repeat a GI cocktail, will start Protonix 40 mg IV every 12 hours Changed to Dilaudid 1 mg every 6 hours Diet advanced to regular (2) Alcohol withdrawal: Plan: Admits to recent large volume consumption of vodka Patient now actively withdrawing, tremors on exam Keep patient on the monitor bed WAAS scale ordered with IV Ativan Will start banana bag in ER, can manager change to oral B12 and folate supplementation if patient is able to tolerate Consider director of social services consultation prior to discharge to discuss alcohol cessation resources (3) Elevated liver enzymes: Plan: RUQ US shows evidence of fatty liver Acute hepatitis panel still pending GI on consult, appreciate recs (4) Chronic alcohol abuse: Plan: Has had a DIU before will need outpatient alcohol rehab Plan: continue hospitalization, hopefully d/c in the next 24 hrs Admission and Anticipated Discharge Date Admission Date: March 20, 2022 Subjective patient seen and examined, still complains of epigastric pain, but much improved Review of Systems Review of Systems: All systems reviewed are negative, apart from the ones contained in the history. Physical Exam Physical Exam: The patient is awake, alert and oriented 3, well developed and well nourished, normocephalic and atraumatic, lying in bed and in no acute distress. HEENT--PERRL, EOMI, mucous membranes and oropharynx mildly dry Neck--supple. No JVD. No bruits. Thyroid normal, trachea midline, no adenopathy. Heart--normal S1 and S2. No murmurs, rubs or gallops. Lungs--clear bilaterally, no respiratory distress, no accessory muscle use. Abdomen--normal bowel sounds and soft. Mild epigastric and left sided abdominal pain Extremities--no cyanosis or clubbing. No edema. Dermatologic--normal skin turgor, normal color, no abnormal lymph nodes, no rash. Neurologic--cranial nerves II through XII grossly intact. Rheumatologic--normal range of motion. Psychiatric--normal affect. Results & Data Results & Data ([facility]) Vital Signs (Past 12 Hours) Vital Signs Temp Pulse Pulse Resp BP Pulse Ox 03/22/22 11:40 98.6 F 119 H 20 147/106 H 97 03/22/22 10:11 95 H 03/22/22 07:51 99.0 F 106 H 22 164/117 H 100 03/22/22 03:36 98.2 F 98 H 20 149/106 H 100 03/22/22 00:54 98.4 F 13 126/82 99 PG Care Time/CCT Total # of Minutes Spent Total Time Spent with Patient: Total time spent is greater than 50% in coordination of care (as documented) at patient's floor/unit and/or counseling patient: Coding Level of Care Code 12458 Subseq Hosp Care Lvl 2 Diagnoses Abdominal pain R10.9 Alcohol withdrawal F10.939 Elevated liver enzymes R74.8 Chronic alcohol abuse F10.10 Time Spent (min) 35
[2022-03-22] MEDS: BREXPIPRAZOLE 0.5 MG TAB PO SCH (15:14)
[2022-03-22] MEDS: BREXPIPRAZOLE 1 MG TAB PO SCH (15:14)
[2022-03-22] MEDS: hydrALAZINE HCL 20 MG/ML VIAL IV PRN (20:22)
[2022-03-22] MEDS: traZODone HCL 100 MG TAB PO SCH (20:30)
[2022-03-22] MEDS ORDERED: CLOMIPRAMINE 25 MG PO SCH (21:00)
[2022-03-23 03:46] LABS: HBSAG NON-REACTIVE (NON-REACTIVE); Hepatitis A Antibody IgM NON-REACTIVE (NON-REACTIVE); Hepatitis B Core Antibody IgM NON-REACTIVE (NON-REACTIVE)
[2022-03-23] MEDS: hydrALAZINE HCL 20 MG/ML VIAL IV PRN ×2 (04:34→12:14)
[2022-03-23] MEDS: ACETAMINOPHEN 500 MG TAB PO PRN ×2 (05:45→12:51)
[2022-03-23] MEDS: GABAPENTIN 400 MG CAP PO SCH ×2 (08:17→12:09)
[2022-03-23] MEDS: amLODIPine BESYLATE 5 MG TAB PO SCH (08:18)
[2022-03-23] MEDS: THIAMINE HCL 100 MG TAB PO SCH (08:18)
[2022-03-23] MEDS: hydroCHLOROthiazide 25 MG TAB PO SCH (08:18)
[2022-03-23] MEDS: FOLIC ACID 1 MG TAB PO SCH (08:18)
[2022-03-23] MEDS: carBAMazepine 200 MG TABLET PO SCH (08:18)
[2022-03-23] MEDS: BENZTROPINE MESYLATE 0.5 MG TAB PO SCH (08:18)
[2022-03-23] MEDS: BREXPIPRAZOLE 1 MG TAB PO SCH (08:19)
[2022-03-23] MEDS: PANTOprazole 40 MG in SYRINGE 0 ML IV SCH (08:19)
[2022-03-23] MEDS: BREXPIPRAZOLE 0.5 MG TAB PO SCH (08:19)
[2022-03-23] MEDS: FLUTICASONE PROPIONATE NA SPR 16 GM BTL NAE SCH (08:23)
[2022-03-23] MEDS: AMPHETAMINE ASP/SULF/DEXTRAMPH 20 MG TAB PO SCH (08:32)
[2022-03-23] MEDS: AMPHETAMINE ASP/SULF/DEXTRAMPH 10 MG TAB PO SCH (12:09)
--- NOTE | 2022-03-23 15:31 | Discharge Summary ---
Date of Service March 23, 2022 Admission HPI Per Admitting Provider This is a 41-year-old female with past medical history of chronic alcoholism that presents today complaining of abdominal pain. Patient is a decent historian but this is limited by significant pain on the part of the patient. Patient tells me she started with significant abdominal pain yesterday afternoon around 4:00. She says the pain is throughout her entire abdomen but seems to be worse in the epigastric area. She has had no nausea or vomiting. She has had some chills but no overt fever. She tells me her appetite is unaffected and she is in fact quite hungry but he previously declined to eat when asked by the ER physician. Patient typically consumes significant mount of alcohol, was here very recently with a DUI and had admitted to consuming a bottle of vodka daily. However, she tells me she only had a little bit of alcohol on 15 March and a glass of wine overnight to help with the pain. In the ER, patient has had 14 mg total of morphine with no relief. She did have a GI cocktail which she did feel had helped and is asking for repeat dose of this. Of note, the patient's LFTs are elevated as noted. Coags were not done but were ordered stat. Imaging showed possible ileus or gastroenteritis. She is status post cholecystectomy previously. Patient is now being mated for significant abdominal pain. Principal Diagnosis alcohol withdrawal, alcoholic gastritis Discharge Exam The patient is awake, alert and oriented 3, well developed and well nourished, normocephalic and atraumatic, lying in bed and in no acute distress. HEENT--PERRL, EOMI, mucous membranes and oropharynx mildly dry Neck--supple. No JVD. No bruits. Thyroid normal, trachea midline, no adenopathy. Heart--normal S1 and S2. No murmurs, rubs or gallops. Lungs--clear bilaterally, no respiratory distress, no accessory muscle use. Abdomen--normal bowel sounds and soft. Mild epigastric and left sided abdominal pain Extremities--no cyanosis or clubbing. No edema. Dermatologic--normal skin turgor, normal color, no abnormal lymph nodes, no rash. Neurologic--cranial nerves II through XII grossly intact. Rheumatologic--normal range of motion. Psychiatric--normal affect. Discharge Data Allergies Allergy/AdvReac Type Severity Reaction Status Date / Time Sulfa (Sulfonamide Allergy Severe anaphylaxis Verified 03/20/22 16:27 Antibiotics) Consultations 03/20/22 15:12 ED Decision to Admit Stat 03/20/22 17:07 Consult Gastroenterology Routine Ordered Studies 03/20/22 12:06 CT abd pelvis IV con only Stat 03/20/22 15:56 US liver Routine Hospital Course (1) Abdominal pain: Most likely due to alcoholic gastritis CT abdomen also shows possible ileus and colitis Patient having normal bowel movement and passing gas Okay to repeat a GI cocktail, will start Protonix 40 mg IV every 12 hours Changed to Dilaudid 1 mg every 6 hours Diet advanced to regular (2) Alcohol withdrawal: Admits to recent large volume consumption of vodka Patient now actively withdrawing, tremors on exam Keep patient on the monitor bed WAAS scale ordered with IV Ativan Will start banana bag in ER, can global climate change researcher to oral B12 and folate supplementation if patient is able to tolerate Consider clinical social work aide consultation prior to discharge to discuss alcohol cessation resources (3) Elevated liver enzymes: RUQ US shows evidence of fatty liver Acute hepatitis panel still pending GI on consult, appreciate recs (4) Chronic alcohol abuse: Has had a DIU before will need outpatient alcohol rehab (5) Alcoholic gastritis: most likely contributing to her abdominal pain pain is now better continue hospitalization, hopefully d/c in the next 24 hrs Total Time Total Time Spent Total Time Spent (In Minutes): 35 Discharge Plan Discharge Items Patient Disposition: Home - Self-Care Reason For Visit: ABDOMINAL PAIN Discharge Diagnosis: Alcohol withdrawal Activity: Resume your previous activity Non-emergency contact: Primary Care Provider and Ammonia Box Tender Call non-emergency contact if: you have any medication questions Follow-up/Referrals: PCP,NO [Primary Care Provider] - Diet: Regular Addtl Attending Provider Instructions: please make appointment to follow up with your PCP Stop drinking alcohol Pending Studies at Discharge: No Stand-Alone Forms: My [employer], Smoking Cessation Medications and DC Order Prescriptions: Continued gabapentin 400 mg Capsule 400 mg PO TID RF: 0 meloxicam 7.5 mg tablet 7.5 mg PO DAILY RF: 0 benztropine 0.5 mg tablet 0.5 mg PO DAILY RF: 0 trazodone 50 mg tablet 100 mg PO HS RF: 0 ondansetron HCl 4 mg tablet 4 mg PO Q8 PRN (Reason: Nausea) RF: 0 carbamazepine 200 mg tablet 600 mg PO QAM RF: 0 amlodipine 10 mg tablet 10 mg PO DAILY RF: 0 dextroamphetamine-amphetamine 20 mg tablet 10 mg PO .QNOON RF: 0 dextroamphetamine-amphetamine 20 mg tablet 20 mg PO QAM RF: 0 hydrochlorothiazide 12.5 mg capsule 12.5 mg PO DAILY RF: 0 omeprazole 20 mg capsule,delayed release(DR/EC) 20 mg PO DAILY RF: 0 lorazepam 1 mg tablet 1 mg PO HS PRN (Reason: SLEEP/ANX) RF: 0 clomipramine 25 mg capsule 25 mg PO HS RF: 0 fluticasone propionate 50 mcg/actuation spray,suspension 2 spray INTRANASAL BID RF: 0 medroxyprogesterone 150 mg/mL suspension 150 mg IM .Q3MO RF: 0 Rexulti 0.5 mg tablet 0.5 mg PO DAILY RF: 0 Rexulti 1 mg tablet 1 mg PO DAILY RF: 0 multivitamin Tablet 1 tab PO DAILY RF: 0 cyanocobalamin (vitamin B-12) [Vitamin B-12] 100 mcg Tablet 0 mcg PO 3XWK RF: 0 calcium-magnesium 750-465 mg Tablet 1 tab PO DAILY RF: 0 Hair,Skin and Nails Tablet 1 tab PO DAILY RF: 0 Discharge Orders: Discharge Order (Routine); Ordered 03/23/22 Ordered By: Elif Hernandez Admission Data Admit Date/Time: 03/20/22 15:56 Attending Provider: Elif Hernandez Admit Provider: Wili Aiken Primary Care Provider: PCP,NO Other Providers: Wili Aiken ; Lux Mortensen Other Interventions: Discharge Summary Assessment (RN) Last Done: 03/23/22 15:20 Coding Level of Care Code D/C DAY MANAGEMENT >30 MINS Diagnoses Abdominal pain R10.9 Alcohol withdrawal F10.939 Elevated liver enzymes R74.8 Chronic alcohol abuse F10.10 Alcoholic gastritis K29.20 Time Spent (min) 35
== END 2022-03-23 15:50 | disposition home or self-care (01) | DRG 392 ==
LOC: ED 11:50 → SUATTDRO 15:56 → 2W 15:56 → 2S 03-21 01:00

== ENCOUNTER 2022-05-18 20:26 | Observation (INO) ==
[2022-05-18] MEDS ORDERED: ONDANSETRON INJ 2 MG/ML 2 ML VIAL ONE (21:21)
[2022-05-18] MEDS ORDERED: SODIUM CHLORIDE 0.9% 1000ML 1,000 ML IV SCH (21:36)
[2022-05-18 21:52] LABS: Alanine Aminotransferase 189 U/L (7-52); Albumin Globulin Ratio 1.6 (0.9-2); Albumin Level 4.1 gm/dl (3.4-5.0); Alkaline Phosphatase 99 U/L (34-104); Anion Gap 10 (3-11); Aspartate Aminotransferase 189 U/L (13-39); Bilirubin,Total 0.4 mg/dl (0.2-1.0); Blood Urea Nitrogen 17 mg/dl (6-23); Calcium 8.3 mg/dl (8.5-10.1); Carbon Dioxide 19 mmol/L (21-32); Chloride 107 mmol/L (98-107); Est GFR (African American) 125.9 ml/min; Est GFR (Non-African American) 108.6 ml/min; Globulin 2.5 gm/dl (2.5-4.0); Glucose 137 mg/dl (70-99(Fasting)); Lipase 75 U/L (11-82); Potassium 4.1 mmol/L (3.5-5.1); Sodium 136 mmol/L (136-145); Total Protein 6.6 gm/dl (6.0-8.3)
[2022-05-18 21:59] LABS: Basophils # (auto) 0.07 K/uL (0-0.2); Basophils % (auto) 1.3 %; Eosinophils # (auto) 0.04 K/uL (0-0.50); Eosinophils % (auto) 0.7 %; Hematocrit (blood only) 38.1 % (34.1-44.9); Hemoglobin 13.7 g/dl (12.0-16.0); Immature Granulocytes # (auto) 0.03 K/uL (0.00-0.02); Immature Granulocytes % (auto) 0.5 %; Lymphocytes # (auto) 2.21 K/uL (1.2-3.4); Lymphocytes % (auto) 39.8 %; Mean Corpuscular Hemoglobin 32.4 pg (25.0-34.0); Mean Corpuscular Volume 90.1 fL (80.0-100.0); Mean Platelet Volume 9.6 fL (9.4-12.3); Monocytes # (auto) 0.43 K/uL (0.24-0.82); Monocytes % (auto) 7.7 %; Neutrophils # (auto) 2.77 K/uL (1.4-6.5); Platelet Count 204 K/uL (130-400); RDW Coefficient of Variation 13.1 % (11.5-14.5); RDW Standard Deviation 42.7 fL (36.4-46.3); Red Blood Count 4.23 M/uL (3.93-5.22); White Blood Count 5.55 K/ul (4.8-10.8)
[2022-05-18 22:02] LABS: Pregnancy Test, Serum Negative (Negative)
[2022-05-18] MEDS ORDERED: SODIUM CHLORIDE 0.9% 1000ML 1,000 ML IV ONE (22:59)
[2022-05-18] MEDS ORDERED: LORazepam 2 MG/1 ML VIAL IV STA (23:01)
[2022-05-18] MEDS ORDERED: ONDANSETRON INJ 2 MG/ML 2 ML VIAL IV STA (23:05)
--- NOTE | 2022-05-18 23:05 | Emergency Department Note ---
History of Present Illness General Chief complaint: Abdominal Pain Stated complaint: ABD PAIN, VOMITTING, CRAMPING, DIARRHEA Time Seen by Provider: 05/18/22 22:54 History of Present Illness Maximum Pain Intensity: 8 41-year-old female presents emergency department with a 4-day history of vomiting and diarrhea. Of note the patient received a colonoscopy of April and was found to have a slow colon and had constipation which was cleared out. Patient has been taking MiraLAX. Of note patient was in our emergency department in March for suspected alcohol withdrawal with a similar presentation and elevated liver enzymes. Patient states that she is extremely weak at times dizzy and shaky having diarrhea. Patient states intermittent occasional crampy abdominal pain is diffuse in nature; there is no specific quadrant abdominal pain. Home Medications Medication Instructions Recorded Confirmed Type gabapentin 400 mg capsule 400 mg PO TID 06/18/20 03/20/22 History amlodipine 10 mg tablet 10 mg PO DAILY 03/20/22 03/20/22 History benztropine 0.5 mg tablet 0.5 mg PO DAILY 03/20/22 03/20/22 History brexpiprazole 0.5 mg tablet 0.5 mg PO DAILY 03/20/22 03/20/22 History (Rexulti) brexpiprazole 1 mg tablet (Rexulti) 1 mg PO DAILY 03/20/22 03/20/22 History calcium-magnesium 750 mg-465 mg 1 tab PO DAILY 03/20/22 03/20/22 History tablet carbamazepine 200 mg tablet 600 mg PO QAM 03/20/22 03/20/22 History clomipramine 25 mg capsule 25 mg PO HS 03/20/22 03/20/22 History cyanocobalamin (vitamin B-12) 100 0 mcg PO 3XWK 03/20/22 03/20/22 History mcg tablet (Vitamin B-12) dextroamphetamine-amphetamine 20 10 mg PO .QNOON 03/20/22 03/20/22 History mg tablet dextroamphetamine-amphetamine 20 20 mg PO QAM 03/20/22 03/20/22 History mg tablet fluticasone propionate 50 2 spray intranasal BID 03/20/22 03/20/22 History mcg/actuation nasal spray,suspension hydrochlorothiazide 12.5 mg capsule 12.5 mg PO DAILY 03/20/22 03/20/22 History lorazepam 1 mg tablet 1 mg PO HS PRN SLEEP/ANX 03/20/22 03/20/22 History medroxyprogesterone 150 mg/mL 150 mg IM .Q3MO 03/20/22 03/20/22 History intramuscular suspension meloxicam 7.5 mg tablet 7.5 mg PO DAILY 03/20/22 03/20/22 History multivitamin 1 tab PO DAILY 03/20/22 03/20/22 History multivitamin with minerals 1 tab PO DAILY 03/20/22 03/20/22 History (Hair,Skin and Nails tablet) omeprazole 20 mg capsule,delayed 20 mg PO DAILY 03/20/22 03/20/22 History release ondansetron HCl 4 mg tablet 4 mg PO Q8 PRN Nausea 03/20/22 03/20/22 History trazodone 50 mg tablet 100 mg PO HS 03/20/22 03/20/22 History Allergies Allergy/AdvReac Type Severity Reaction Status Date / Time Sulfa (Sulfonamide Allergy Severe anaphylaxis Verified 03/20/22 16:27 Antibiotics) Past Med/Surg History Medical History Anxiety and depression Asthma "EPISODIC ASTHMA" NO INHALER Attention deficit disorder (ADD) Bilateral lumbar radiculopathy Bipolar disorder Degenerative disc disease Fibromyalgia GERD (gastroesophageal reflux disease) Hx of migraines Insulin resistance Post traumatic stress disorder Spinal stenosis Surgical History History of cholecystectomy History of discectomy LUMBAR (X 3) History of esophagogastroduodenoscopy (EGD) History of spinal fusion LUMBAR [place] teeth removed Social History Smoking Status: Current some day smoker Tobacco Type: E-cigarettes / Vaping Second Hand Exposure: No; Hx Alcohol Use: Yes Alcohol type: hard liquor Hx Substance Use: No Preferred Language: Belgian Communication Ability: Effective Eyeglass Frames Inspector Required: No Beliefs That Will Affect Care: None marital status: Single Current Living Situation: Parent Current Living Situation Comment: roomate current occupational status: unemployed and disabled Feels Safe at Home: Yes Assistive Devices: None Review of Systems A total of 10 systems reviewed and were otherwise negative Constitutional: no fever Ear, Nose, Mouth, Throat: + ear pain Cardiovascular: no chest pain Gastrointestinal: + nausea, + vomiting, + change in stools and + diarrhea/loose stools Neurologic: + dizziness Psychiatric: + anxiety Physical Exam Vital Signs Vital Signs - 24 hr 05/18/22 20:36 05/18/22 22:39 Temperature 36.8 C Temperature Source Temporal Artery Scan Pulse Rate 107 H Pulse Rate [Apical] 101 H Respiratory Rate 18 20 Respiratory Effort / Characteristics Non-Labored Spontaneous Respiratory Depth Normal Blood Pressure 133/91 Blood Pressure [Right Arm] 116/52 L Blood Pressure Mean 105 Blood Pressure Mean [Right Arm] 73 Pulse Oximetry 98 100 Oxygen Delivery Method Room Air Sepsis Recent Fever Within 48 Hours No Sepsis New/Unexplained Change in Mental Status No Sepsis Action Taken by Nursing No Action Required GENERAL: Patient is awake alert in no acute distress patient is resting comfortably EYES: The conjunctivae are clear. The pupils are round and reactive. EARS, NOSE, MOUTH AND THROAT: The nose is without any evidence of any deformity. Mucous membranes are moist. Tongue is midline. TMs clear bilaterally NECK: The neck is nontender and supple. RESPIRATORY: Normal respiratory effort is noted there is no evidence of wheezing rhonchi or rales CARDIOVASCULAR: Tachycardic noted there no murmurs rubs or gallops normal S1 normal S2. GASTROINTESTINAL: The abdomen is soft. Abdomen is nontender. Normal bowel sounds PELVIS: The Pelvis is stable. No tenderness to palpation is noted. BACK: No midline tenderness or or step-off noted range of motion in flexion extension as well as rotation no signs of muscle spasm noted MUSCULOSKELETAL/EXTREMITIES: There is no evidence of gross deformity full range of motion is noted in the hips and shoulders. SKIN: There is no obvious evidence of any rash. There are no petechiae, pallor or cyanosis noted. NEUROLOGIC: Patient is awake alert and oriented x3 strength; patient is shaky; Psych: Mildly anxious Course Administered Medications Discontinued Medications Sodium Chloride (Nss 1000ml) 1,000 mls @ 999 mls/hr IV .Q1H1M ESTELA Stop: 05/18/22 22:36 Last Infusion: 05/18/22 22:38 Dose: 0 mls/hr Documented By: Admin: 05/18/22 21:36 Dose: 999 mls/hr Documented By: DEON Sodium Chloride (Nss 1000ml) 1,000 mls @ 999 mls/hr IV .Q1H1M ONE Stop: 05/18/22 23:59 Last Admin: 05/18/22 23:19 Dose: 999 mls/hr Documented By: LESLIE Lorazepam (Lorazepam 2 Mg/1 Ml Vial) 1 mg IV NOW STA; Protocol Stop: 05/18/22 23:02 Last Admin: 05/18/22 23:32 Dose: 1 mg Documented By: LESLIE Ondansetron HCl (Ondansetron Inj 2 Mg/Ml 2 Ml Vial) Confirm Administered Dose 4 mg .ROUTE .STK-MED ONE Stop: 05/18/22 21:22 Last Admin: 05/18/22 21:32 Dose: 4 mg Documented By: DEON Ondansetron HCl (Ondansetron Inj 2 Mg/Ml 2 Ml Vial) 4 mg IV NOW STA Stop: 05/18/22 23:06 Last Admin: 05/18/22 23:15 Dose: 4 mg Documented By: LESLIE Medical Decision Making Medical Records Attestation: I reviewed the patient's medical records. Home Medications Current Medication List: was personally reviewed by me Laboratory Data Attestation: I reviewed the patient's lab results. Elevated liver enzymes which are actually down from prior, elevated alcohol level indicative of alcohol intoxication Result diagrams: 05/18/22 21:18 05/18/22 21:18 Lab Results 05/18/22 05/18/22 05/18/22 Range/Units 21:18 21:18 21:18 WBC 5.55 (4.8-10.8) K/ul RBC 4.23 (3.93-5.22) M/uL Hgb 13.7 (12.0-16.0) g/dl Hct 38.1 (34.1-44.9) % MCV 90.1 (80.0-100.0) fL MCH 32.4 (25.0-34.0) pg MCHC 36.0 (32.0-36.0) g/dL RDW Std Deviation 42.7 (36.4-46.3) fL RDW Coeff of Ellen 13.1 (11.5-14.5) % Plt Count 204 (130-400) K/uL MPV 9.6 (9.4-12.3) fL Immature Gran % (Auto) 0.5 % Neut % (Auto) 50.0 % Lymph % (Auto) 39.8 % [place] % (Auto) 7.7 % Eos % (Auto) 0.7 % Baso % (Auto) 1.3 % Neut # (Auto) 2.77 (1.4-6.5) K/uL Lymph # (Auto) 2.21 (1.2-3.4) K/uL [place]ble # (Auto) 0.43 (0.24-0.82) K/uL Eos # (Auto) 0.04 (0-0.50) K/uL Baso # (Auto) 0.07 (0-0.2) K/uL Immature Gran # (Auto) 0.03 H (0.00-0.02) K/uL Sodium 136 (136-145) mmol/L Potassium 4.1 (3.5-5.1) mmol/L Chloride 107 (98-107) mmol/L Carbon Dioxide 19 L (21-32) mmol/L Anion Gap 10 (3-11) BUN 17 (6-23) mg/dl Creatinine 0.68 (0.6-1.2) mg/dl Est Cr Clr Drug Dosing Not Reportable Est GFR ( Amer) 125.9 ml/min Est GFR (Non-Af Amer) 108.6 ml/min BUN/Creatinine Ratio 25.0 H (10-20) Glucose 137 H (70-99(Fasting)) mg/dl Calcium 8.3 L (8.5-10.1) mg/dl Magnesium (1.7-2.4) mg/dl Total Bilirubin 0.4 (0.2-1.0) mg/dl AST 189 H (13-39) U/L ALT 189 H (7-52) U/L Alkaline Phosphatase 99 (34-104) U/L Total Protein 6.6 (6.0-8.3) gm/dl Albumin 4.1 (3.4-5.0) gm/dl Globulin 2.5 (2.5-4.0) gm/dl Albumin/Globulin Ratio 1.6 (0.9-2) Lipase 75 (11-82) U/L HCG, Qual Negative (Negative) Ethyl Alcohol mg/dL (<10.0) mg/dl SARS-CoV-2, RNA, NAAT (NEGATIVE) 05/18/22 05/18/22 05/18/22 Range/Units 21:18 21:18 23:20 WBC (4.8-10.8) K/ul RBC (3.93-5.22) M/uL Hgb (12.0-16.0) g/dl Hct (34.1-44.9) % MCV (80.0-100.0) fL MCH (25.0-34.0) pg MCHC (32.0-36.0) g/dL RDW Std Deviation (36.4-46.3) fL RDW Coeff of Ellen (11.5-14.5) % Plt Count (130-400) K/uL MPV (9.4-12.3) fL Immature Gran % (Auto) % Neut % (Auto) % Lymph % (Auto) % [place] % (Auto) % Eos % (Auto) % Baso % (Auto) % Neut # (Auto) (1.4-6.5) K/uL Lymph # (Auto) (1.2-3.4) K/uL [place]ble # (Auto) (0.24-0.82) K/uL Eos # (Auto) (0-0.50) K/uL Baso # (Auto) (0-0.2) K/uL Immature Gran # (Auto) (0.00-0.02) K/uL Sodium (136-145) mmol/L Potassium (3.5-5.1) mmol/L Chloride (98-107) mmol/L Carbon Dioxide (21-32) mmol/L Anion Gap (3-11) BUN (6-23) mg/dl Creatinine (0.6-1.2) mg/dl Est Cr Clr Drug Dosing Est GFR ( Amer) ml/min Est GFR (Non-Af Amer) ml/min BUN/Creatinine Ratio (10-20) Glucose (70-99(Fasting)) mg/dl Calcium (8.5-10.1) mg/dl Magnesium 2.3 (1.7-2.4) mg/dl Total Bilirubin (0.2-1.0) mg/dl AST (13-39) U/L ALT (7-52) U/L Alkaline Phosphatase (34-104) U/L Total Protein (6.0-8.3) gm/dl Albumin (3.4-5.0) gm/dl Globulin (2.5-4.0) gm/dl Albumin/Globulin Ratio (0.9-2) Lipase (11-82) U/L HCG, Qual (Negative) Ethyl Alcohol mg/dL 208.0 H (<10.0) mg/dl SARS-CoV-2, RNA, NAAT NEGATIVE (NEGATIVE) MDM Narrative Medical decision making differential diagnosis includes gastritis gastroenteritis colitis transaminitis alcohol withdrawal metabolic derangement dehydration. Plan is to check labs, give IV fluids give IV Ativan. Patient was evaluated for generalized malaise vomiting diarrhea and shakiness. Patient was admitted in March for possible alcohol withdrawal. Patient's alcohol level was greater than 200 patient has no indications of sepsis at this time. Patient will be admitted for what I suspect is possible early alcohol withdrawal. Case was discussed with the hospitalist for admission Impression & Plan Diarrhea, Weakness, Transaminitis, Alcohol withdrawal Discharge Plan Visit Data Chief Complaint: Abdominal Pain Stated Complaint: ABD PAIN, VOMITTING, CRAMPING, DIARRHEA ED Provider: Enrike Ball Discharge Problem: Diarrhea, Weakness, Transaminitis, Alcohol withdrawal Patient Disposition: Being Evaluated by Hospitalist Forms Stand Alone Forms: My [facility] Prescriptions Prescriptions: No Action gabapentin 400 mg Capsule 400 mg PO TID Rx Instructions: Take in am, noon, hs meloxicam 7.5 mg tablet 7.5 mg PO DAILY benztropine 0.5 mg tablet 0.5 mg PO DAILY trazodone 50 mg tablet 100 mg PO HS ondansetron HCl 4 mg tablet 4 mg PO Q8 PRN (Reason: Nausea) carbamazepine 200 mg tablet 600 mg PO QAM amlodipine 10 mg tablet 10 mg PO DAILY dextroamphetamine-amphetamine 20 mg tablet 10 mg PO .QNOON dextroamphetamine-amphetamine 20 mg tablet 20 mg PO QAM hydrochlorothiazide 12.5 mg capsule 12.5 mg PO DAILY omeprazole 20 mg capsule,delayed release(DR/EC) 20 mg PO DAILY lorazepam 1 mg tablet 1 mg PO HS PRN (Reason: SLEEP/ANX) clomipramine 25 mg capsule 25 mg PO HS fluticasone propionate 50 mcg/actuation spray,suspension 2 spray INTRANASAL BID medroxyprogesterone 150 mg/mL suspension 150 mg IM .Q3MO Rexulti 0.5 mg tablet 0.5 mg PO DAILY Rexulti 1 mg tablet 1 mg PO DAILY Rx Instructions: Take with 0.5 mg tab multivitamin Tablet 1 tab PO DAILY cyanocobalamin (vitamin B-12) [Vitamin B-12] 100 mcg Tablet 0 mcg PO 3XWK calcium-magnesium 750-465 mg Tablet 1 tab PO DAILY Rx Instructions: PLUS POTASSIUM Hair,Skin and Nails Tablet 1 tab PO DAILY Referrals Referrals: PCP,NO [Physician] -
--- NOTE | 2022-05-19 00:04 | History & Physical Report ---
Date of Service May 19, 2022 History of Present Illness Primary Care Provider: Stacia Arreola MD Allergies Allergy/AdvReac Type Severity Reaction Status Date / Time Sulfa (Sulfonamide Allergy Severe anaphylaxis Verified 03/20/22 16:27 Antibiotics) Home Medications Medication Instructions Recorded Confirmed Type gabapentin 400 mg capsule 400 mg PO TID 06/18/20 03/20/22 History amlodipine 10 mg tablet 10 mg PO DAILY 03/20/22 03/20/22 History benztropine 0.5 mg tablet 0.5 mg PO DAILY 03/20/22 03/20/22 History brexpiprazole 0.5 mg tablet 0.5 mg PO DAILY 03/20/22 03/20/22 History (Rexulti) brexpiprazole 1 mg tablet (Rexulti) 1 mg PO DAILY 03/20/22 03/20/22 History calcium-magnesium 750 mg-465 mg 1 tab PO DAILY 03/20/22 03/20/22 History tablet carbamazepine 200 mg tablet 600 mg PO QAM 03/20/22 03/20/22 History clomipramine 25 mg capsule 25 mg PO HS 03/20/22 03/20/22 History cyanocobalamin (vitamin B-12) 100 0 mcg PO 3XWK 03/20/22 03/20/22 History mcg tablet (Vitamin B-12) dextroamphetamine-amphetamine 20 10 mg PO .QNOON 03/20/22 03/20/22 History mg tablet dextroamphetamine-amphetamine 20 20 mg PO QAM 03/20/22 03/20/22 History mg tablet fluticasone propionate 50 2 spray intranasal BID 03/20/22 03/20/22 History mcg/actuation nasal spray,suspension hydrochlorothiazide 12.5 mg capsule 12.5 mg PO DAILY 03/20/22 03/20/22 History lorazepam 1 mg tablet 1 mg PO HS PRN SLEEP/ANX 03/20/22 03/20/22 History medroxyprogesterone 150 mg/mL 150 mg IM .Q3MO 03/20/22 03/20/22 History intramuscular suspension meloxicam 7.5 mg tablet 7.5 mg PO DAILY 03/20/22 03/20/22 History multivitamin 1 tab PO DAILY 03/20/22 03/20/22 History multivitamin with minerals 1 tab PO DAILY 03/20/22 03/20/22 History (Hair,Skin and Nails tablet) omeprazole 20 mg capsule,delayed 20 mg PO DAILY 03/20/22 03/20/22 History release ondansetron HCl 4 mg tablet 4 mg PO Q8 PRN Nausea 03/20/22 03/20/22 History trazodone 50 mg tablet 100 mg PO HS 03/20/22 03/20/22 History Past Med/Surg History Medical History Anxiety and depression Asthma "EPISODIC ASTHMA" NO INHALER Attention deficit disorder (ADD) Bilateral lumbar radiculopathy Bipolar disorder Degenerative disc disease Fibromyalgia GERD (gastroesophageal reflux disease) Hx of migraines Insulin resistance Post traumatic stress disorder Spinal stenosis Surgical History History of cholecystectomy History of discectomy LUMBAR (X 3) History of esophagogastroduodenoscopy (EGD) History of spinal fusion LUMBAR [place] teeth removed Social History Smoking Status: Current some day smoker Tobacco Type: E-cigarettes / Vaping Second Hand Exposure: No; Hx Alcohol Use: Yes Alcohol type: hard liquor Hx Substance Use: No Preferred Language: Faroese Communication Ability: Effective Barge Engineer Required: No Beliefs That Will Affect Care: None marital status: Single Current Living Situation: Parent Current Living Situation Comment: roomate current occupational status: unemployed and disabled Feels Safe at Home: Yes Assistive Devices: None Results & Data Results & Data ([facility]) Vital Signs (Past 12 Hours) Vital Signs Temp Pulse Pulse Resp BP BP Pulse Ox 05/18/22 22:39 101 H 20 116/52 L 100 05/18/22 20:36 36.8 C 107 H 18 133/91 98 O2 Del Method 05/18/22 22:39 05/18/22 20:36 Room Air PG Care Time/CCT Total # of Minutes Spent Total Time Spent with Patient: Total time spent is greater than 50% in coordination of care (as documented) at patient's floor/unit and/or counseling patient: Coding
[2022-05-19] MEDS ORDERED: ONDANSETRON INJ 2 MG/ML 2 ML VIAL IV PRN (01:04)
[2022-05-19] MEDS ORDERED: MULTI-VITAMIN INFUSION 10 ML, THIAMINE HCL 100 MG, FOLIC ACID 1 MG in SODIUM CHLORIDE 0... IV ONE (01:04)
[2022-05-19] MEDS ORDERED: LORazepam 1 MG in SYRINGE 0.5 ML IV PRN ×2 (01:04→19:05)
[2022-05-19 01:11] LABS: Appearance Urine Clear (Clear); Bacteria Urine Automated 1+ (Negative); Bilirubin Urine Negative (Negative); Blood Urine Trace (Negative); Cast Urine Automated 0 /lpf (0-5); Color Urine Yellow; Glucose Urine UA Negative (Negative); Ketones Urine Negative (Negative); Leukocyte Esterase Urine Negative (Negative); Nitrite Urine Negative (Negative); Protein Urine Negative (Negative); RBC Urine Automated 0-4 /hpf (0-4); Specific Gravity Urine 1.013 (1.000-1.030); Urobilinogen Urine Negative (Negative); pH Urine 5.5 (4.5-7.5)
--- NOTE | 2022-05-19 02:48 | History & Physical Report ---
Date of Service May 19, 2022 Assessment & Plan (1) Wernicke encephalopathy: Plan: - concern for WE based on history of confabulation, gait dysfunction in the setting of chronic alcohol use - reports gait dysfunction and not able to control body - confabulation on history of alcohol use - given concern for WE will treat with high dose thiamine for now - reevaluate in the morning - check b12 levels - could also be ?alcoholic cerebellar degeneration vs intoxication vs peripheral neuropathy but does not report or demonstrate peripheral neuropathy - will consult neurology for additional input on diagnosis (2) Alcohol withdrawal: Plan: - reports drinking vodka daily prior to admission - denies history of alcohol withdrawal seizures - received 1mg IV in ED with improvement in mild withdrawal symptoms - AWSS with prn ativan IV for withdrawal - telemetry monitoring - psych consult (3) Diarrhea: Plan: - unclear etiology but appears to have started ?resolving on day of admission - associated with cramping abdominal pain that has resolved since admission - had a history of overflow constipation that required colonoscopic disimpaction per the patient in 04/2022 - was on miralax daily - will hold for now - ordered stool studies if can be collected - IV hydration - tolerates diet so will give regular diet - will continue to monitor (4) Transaminitis: Plan: - - has been preseent on past admissions related to alcohol use likely - LFTs improved since 03/2022, bilis wnl, ALP wnl - denies abdominal pain or RUQ tenderness on my exam - Liver US 03/2022 consistent with fatty infiltrates - will monitor for now Plan DVT ppx: heparin SC Code Status: Full Code Dispo: telemetry Walker Boykin MD [facility] Medicine Admission and Anticipated Discharge Date Admission Date: May 19, 2022 History of Present Illness Chief Complaint: n/v/d and abdominal pain Primary Care Provider: Stacia Arreola MD The patient is a 41 year old woman with pmh HTN, alcohol use disorder, psych history who presented with 4 days of n/v/d as well as abdominal pain and gait dysfunction. She reports that she started with abdominal pain on Tuesday05/15/2022 and had nausea and vomiting that came intermittently. She reports she also developed diarrhea which persisted until day of presentation. She describes the abdominal pain as cramping and severe. She denies blood in her stools or vomit and denies PO intolerance. She denied fever or chills, chest pain, shortness of breath, light headedness or dizziness, dysuria. She reports gait dysfunction as feeling like she does not have control of her body. This has been going on for about 1 week now. She denies any back pain, numbness or tingling in her legs or weakness. She has not seen anyone yet for these issues. She reports alcohol use and frequent relapses, most recently last Tuesday and has been drinking daily since then to prevent withdrawal, she reports. She denies having a withdrawal seizure in the past. She reports to me her last drink was the day of admission, she told the nurse her last drink was last Tuesday. She reported some withdrawal symptoms on presentation, received ativan and zofran and improved, she also reported improvement in her abdominal cramping. In the ED, vitals were stable. Labs were significant for WBC 5.5, HCO3- 19, AST 189, ALT 189, ALP 99, tbili 0.4, UA unremarkable, ETOH 208. She was given IVF a nd admitted to medicine. Allergies Allergy/AdvReac Type Severity Reaction Status Date / Time Sulfa (Sulfonamide Allergy Severe anaphylaxis Verified 05/19/22 00:45 Antibiotics) Home Medications Medication Instructions Recorded Confirmed Type gabapentin 400 mg capsule 400 mg PO TID 06/18/20 05/19/22 History amlodipine 10 mg tablet 10 mg PO DAILY 03/20/22 05/19/22 History benztropine 0.5 mg tablet 0.5 mg PO DAILY 03/20/22 05/19/22 History brexpiprazole 0.5 mg tablet 0.5 mg PO DAILY 03/20/22 05/19/22 History (Rexulti) brexpiprazole 1 mg tablet (Rexulti) 1 mg PO DAILY 03/20/22 05/19/22 History calcium-magnesium 750 mg-465 mg 1 tab PO DAILY 03/20/22 05/19/22 History tablet carbamazepine 200 mg tablet 600 mg PO QAM 03/20/22 05/19/22 History clomipramine 25 mg capsule 25 mg PO HS 03/20/22 05/19/22 History cyanocobalamin (vitamin B-12) 100 0 mcg PO 3XWK 03/20/22 05/19/22 History mcg tablet (Vitamin B-12) dextroamphetamine-amphetamine 20 10 mg PO QAM 03/20/22 05/19/22 History mg tablet dextroamphetamine-amphetamine 20 20 mg PO QAM 03/20/22 05/19/22 History mg tablet fluticasone propionate 50 2 spray intranasal BID 03/20/22 05/19/22 History mcg/actuation nasal spray,suspension hydrochlorothiazide 12.5 mg capsule 12.5 mg PO DAILY 03/20/22 05/19/22 History lorazepam 1 mg tablet 1 mg PO HS PRN SLEEP/ANX 03/20/22 05/19/22 History medroxyprogesterone 150 mg/mL 150 mg IM .Q3MO 03/20/22 05/19/22 History intramuscular suspension meloxicam 7.5 mg tablet 7.5 mg PO DAILY 03/20/22 05/19/22 History multivitamin 1 tab PO DAILY 03/20/22 05/19/22 History multivitamin with minerals 1 tab PO DAILY 03/20/22 05/19/22 History (Hair,Skin and Nails tablet) omeprazole 20 mg capsule,delayed 20 mg PO DAILY 03/20/22 05/19/22 History release ondansetron HCl 4 mg tablet 4 mg PO Q8 PRN Nausea 03/20/22 05/19/22 History trazodone 50 mg tablet 100 mg PO HS 03/20/22 05/19/22 History milk thistle 175 mg tablet 0 mg PO DAILY 05/19/22 05/19/22 History omega 4-[id number]-[id number]-fish oil 1,000 mg 1 cap PO DAILY 05/19/22 05/19/22 History (120 mg-180 mg) capsule (Fish Oil) Past Med/Surg History Medical History (Updated 05/19/22 @ 02:58 by Walker Boykin MD) Alcohol withdrawal Anxiety and depression Asthma "EPISODIC ASTHMA" NO INHALER Attention deficit disorder (ADD) Bilateral lumbar radiculopathy Bipolar disorder Degenerative disc disease Fibromyalgia GERD (gastroesophageal reflux disease) Hx of migraines Insulin resistance Post traumatic stress disorder Spinal stenosis Surgical History History of cholecystectomy History of discectomy LUMBAR (X 3) History of esophagogastroduodenoscopy (EGD) History of spinal fusion LUMBAR [place] teeth removed Social History Smoking Status: Current some day smoker Tobacco Type: E-cigarettes / Vaping Second Hand Exposure: No; Tobacco Cessation Education Requested by Patient: No Hx Alcohol Use: Yes Alcohol type: hard liquor Hx Substance Use: No Preferred Language: Maltese Communication Ability: Effective Fast Food Worker Required: No Beliefs That Will Affect Care: None marital status: Single Current Living Situation: Parent Current Living Situation Comment: roomate current occupational status: unemployed and disabled Other Information That Helps Us Care for You: No Feels Safe at Home: Yes Safety Concerns: Feels Safe At This Time Assistive Devices: None Review of Systems Review of Systems: All systems reviewed & are unremarkable except as noted in Subjective Physical Exam Constitutional: WD/WN, vitals as above Eyes: PERRL, conjunctivae normal, anicteric sclerae ENMT: external ear and nose normal, oropharynx normal Neck: trachea midline, no thyromegaly Respiratory: normal respiratory effort, lungs clear to auscultation Cardiovascular: RRR, no murmur, no edema Gastrointestinal (Abdomen): normal bowel sounds, soft, nontender, no hepatosplenomegaly Musculoskeletal: no cyanosis or clubbing, extremities motor strength 5/5 Skin: no rashes, warm and dry Neurologic: patellar DTR's 2+ bilat, sensation intact awake; no focal motor deficits Motor/Sensory: no tremor and no fasciculations Coordination: + abnormal Romberg test; normal [id number] test Psychiatric: A+Ox3, euthymic affect Results & Data Results & Data ([facility]) Vital Signs (Past 12 Hours) Vital Signs Temp Pulse Pulse Pulse Resp BP BP 05/19/22 01:55 36.7 C 95 H 18 154/115 H 05/19/22 01:10 36.9 C 96 H 18 146/104 H 05/19/22 00:47 36.7 C 96 H 18 146/104 H 05/19/22 00:29 14 132/94 05/18/22 22:39 101 H 20 05/18/22 20:36 36.8 C 107 H 18 133/91 BP Pulse Ox O2 Del Method 05/19/22 01:55 100 Room Air 05/19/22 01:10 100 Room Air 05/19/22 00:47 100 Room Air 05/19/22 00:29 99 Room Air 05/18/22 22:39 116/52 L 100 05/18/22 20:36 98 Room Air Laboratory Results Short CBC 05/18/22 Range/Units 21:18 WBC 5.55 (4.8-10.8) K/ul Hgb 13.7 (12.0-16.0) g/dl Hct 38.1 (34.1-44.9) % Plt Count 204 (130-400) K/uL BMP 05/18/22 21:18 Sodium 136 Potassium 4.1 Chloride 107 Carbon Dioxide 19 L BUN 17 Creatinine 0.68 Glucose 137 H Calcium 8.3 L Liver Function 05/18/22 Range/Units 21:18 Total Bilirubin 0.4 (0.2-1.0) mg/dl AST 189 H (13-39) U/L ALT 189 H (7-52) U/L Alkaline Phosphatase 99 (34-104) U/L Albumin 4.1 (3.4-5.0) gm/dl Urine 05/19/22 Range/Units 00:38 Urine Color Yellow Urine Appearance Clear (Clear) Urine pH 5.5 (4.5-7.5) Ur Specific [place] 1.013 (1.000-1.030) Urine Protein Negative (Negative) Urine Glucose (UA) Negative (Negative) Medications Administered Current Inpatient Medications Amlodipine Besylate (Amlodipine Besylate 5 Mg Tab) 10 mg PO QAM ESTELA Stop: 06/18/22 08:59 Hydrochlorothiazide (Hydrochlorothiazide 25 Mg Tab) 12.5 mg PO QAM ESTELA Stop: 06/18/22 08:59 Multivitamins 10 ml/ Thiamine HCl 100 mg/ Folic Acid 1 mg/Sodium [place] 1,011.2 mls @ 500 mls/hr IV .Q2H2M ONE Stop: 05/19/22 03:05 Last Admin: 05/19/22 01:42 Dose: 500 mls/hr Lorazepam 1 mg/ Syringe 1 mls @ 2 mls/min IV ONE PRN; Protocol PRN Reason: EtoH Withdrawal AWSS 6,7,8,9,10 Thiamine HCl 500 mg/ Sodium (Chloride) 55 mls @ 220 mls/hr IV Q8H ESTELA Stop: 05/21/22 02:59 Thiamine HCl 250 mg/ Sodium (Chloride) 52.5 mls @ 210 mls/hr IV QAM ESTELA Stop: 05/26/22 08:59 Ondansetron HCl (Ondansetron Inj 2 Mg/Ml 2 Ml Vial) 4 mg IV Q6H PRN PRN Reason: Nausea And Vomiting Stop: 06/18/22 01:03 Pantoprazole Sodium (Pantoprazole 40 Mg Tab) 40 mg PO QAM [facility] Stop: 06/18/22 08:59 Code Status & VTE Plan Code Status Full Code
[2022-05-19] MEDS ORDERED: LACTATED RINGER'S 1,000 ML IV SCH (03:05)
[2022-05-19] MEDS: THIAMINE HCL 500 MG in SODIUM CHLORIDE 0.9% 50 ML IV SCH ×3 (03:57→19:33)
[2022-05-19] MEDS: HEPARIN SOD 5,000 UNIT/0.5 ML VIAL SQ SCH ×3 (05:11→21:07)
[2022-05-19 06:21] LABS: Hematocrit (blood only) 37.9 % (34.1-44.9); Hemoglobin 13.3 g/dl (12.0-16.0); Mean Corpuscular Hemoglobin 31.7 pg (25.0-34.0); Mean Corpuscular Hgb Conc 35.1 g/dL (32.0-36.0); Mean Corpuscular Volume 90.5 fL (80.0-100.0); Mean Platelet Volume 9.5 fL (9.4-12.3); Platelet Count 179 K/uL (130-400); RDW Coefficient of Variation 13.1 % (11.5-14.5); RDW Standard Deviation 42.5 fL (36.4-46.3); Red Blood Count 4.19 M/uL (3.93-5.22); White Blood Count 6.35 K/ul (4.8-10.8)
[2022-05-19 06:39] LABS: Albumin Level 3.8 gm/dl (3.4-5.0); BUN Creatinine Ratio 25.4 (10-20); Bilirubin Direct 0.1 mg/dl (0-0.2); Bilirubin,Total 0.7 mg/dl (0.2-1.0); Calcium 7.8 mg/dl (8.5-10.1); Creatinine Clr Calc Pharmacy 159.3 ml/min; Est GFR (African American) 131.9 ml/min; Est GFR (Non-African American) 113.8 ml/min; Magnesium 2.1 mg/dl (1.7-2.4); Potassium 4.2 mmol/L (3.5-5.1); Total Protein 6.1 gm/dl (6.0-8.3)
[2022-05-19 06:59] LABS: Folate (Folic Acid) > 22.30 ng/ml (>5.38)
[2022-05-19 07:01] LABS: Vitamin B12 707 pg/ml (180-914)
[2022-05-19] MEDS: PANTOprazole 40 MG TAB PO SCH (08:28)
[2022-05-19] MEDS: amLODIPine BESYLATE 5 MG TAB PO SCH (08:28)
[2022-05-19] MEDS: BREXPIPRAZOLE 1 MG TAB PO SCH (08:29)
[2022-05-19] MEDS: BREXPIPRAZOLE 0.5 MG TAB PO SCH (08:29)
[2022-05-19] MEDS: hydroCHLOROthiazide 25 MG TAB PO SCH (08:30)
--- NOTE | 2022-05-19 12:49 | Communication Note ---
Date of Service: May 19, 2022 Attempted to meet with Anjelica for psychiatry consult. She declined our services, stating she did not feel she has any current psychiatric issues and when we discussed potential ways we could help regarding services/discussion of alcohol use she reported that she is well wrapped with services and "working the 12 steps". Psych liason offered a psych liason only consult which she also declined. She declined having us return later today or to re-attempt tomorrow stating she has no needs from our service. Based on chart review no evidence for any acute safety concerns-should this arise please re-consult us. Psychiatry to sign-off per patient request.
--- NOTE | 2022-05-19 12:58 | Neurology Consultation ---
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 She is also generally tremulous and has an element of alcohol withdrawal at this time. Otherwise, her mental status appears to be intact. I do not see any obvious signs of confabulation or gross encephalopathy at this time. She probably does not have Wernicke encephalopathy. I would like this patient to have a gadolinium enhanced brain MRI completed. Discussed with hospitalist physician, order in place. I will advise further pending results of the study. Continued abstinence from alcohol will need to be stressed. Should continue with supplemental thiamine. Patient may need to coordinate further with psychiatry. She does appear to be modestly agitated and tremulous which I suspect is related to alcohol withdrawal. She may benefit from additional treatment in this regard with a benzodiazepine such as Librium. I do not manage alcohol withdrawal, however, and I would defer to either psychiatry or her hospitalist physician for further recommendations in this regard. Patient also has an outpatient psychiatrist who could follow-up with this issue. I do not think this patient would require additional outpatient neurological evaluations for alcohol related cerebellar degeneration. Again, I will advise further pending completion of the above MRI. History of Present Illness Reason for Consultation: Gait dysfunction Requesting Physician: Walker Boykin MD Attending Physician: Suraj Baker MD History of Present Illness The patient is a 41-year-old female with a chief complaint of persistent gait dysfunction, poor balance, tendency for falls, beginning insidiously, probably 6 to 12 months ago, who presented to the emergency department yesterday for further evaluation and management of abdominal pain, vomiting, and diarrhea. She openly relays a history of chronic alcoholism that goes back at least 6 years, currently participating in alcoholics anonymous but does admit to continued drinking, although much less than usual over the past week. She has significant underlying anxiety, history notable for bipolar disorder, she is tremulous and is currently receiving management for alcohol withdrawal. Neurology has been consulted for further assessment of patient's gait difficulty occurring in the context of alcohol abuse. There is also some concern for Wernicke encephalopathy as she has been somewhat confused, perhaps confabulating based on information in the admission history. As above, the patient does present in a somewhat anxious, tremulous fashion. Her mentation does appear to be clear, however, no confabulation at this time. She openly relays her history of heavy alcohol abuse as well as other historical details as above. She also endorses a history of several falls with associated head injury, although nothing recently. She has not had any specific neuroimaging completed in the context of this current hospitalization although I do see she had a CT of the head completed in September 2019 after a fall, no hemorrhage or acute process at that time. I did independently review the images, there is no hydrocephalus, there is a mild degree of frontal atrophy. Allergies Allergy/AdvReac Type Severity Reaction Status Date / Time Sulfa (Sulfonamide Allergy Severe anaphylaxis Verified 05/19/22 00:45 Antibiotics) Home Medications Medication Instructions Recorded Confirmed Type gabapentin 400 mg capsule 400 mg PO TID 06/18/20 05/19/22 History amlodipine 10 mg tablet 10 mg PO DAILY 03/20/22 05/19/22 History benztropine 0.5 mg tablet 0.5 mg PO DAILY 03/20/22 05/19/22 History brexpiprazole 0.5 mg tablet 0.5 mg PO DAILY 03/20/22 05/19/22 History (Rexulti) brexpiprazole 1 mg tablet (Rexulti) 1 mg PO DAILY 03/20/22 05/19/22 History calcium-magnesium 750 mg-465 mg 1 tab PO DAILY 03/20/22 05/19/22 History tablet carbamazepine 200 mg tablet 600 mg PO QAM 03/20/22 05/19/22 History clomipramine 25 mg capsule 25 mg PO HS 03/20/22 05/19/22 History cyanocobalamin (vitamin B-12) 100 0 mcg PO 3XWK 03/20/22 05/19/22 History mcg tablet (Vitamin B-12) dextroamphetamine-amphetamine 20 10 mg PO QAM 03/20/22 05/19/22 History mg tablet dextroamphetamine-amphetamine 20 20 mg PO QAM 03/20/22 05/19/22 History mg tablet fluticasone propionate 50 2 spray intranasal BID 03/20/22 05/19/22 History mcg/actuation nasal spray,suspension hydrochlorothiazide 12.5 mg capsule 12.5 mg PO DAILY 03/20/22 05/19/22 History lorazepam 1 mg tablet 1 mg PO HS PRN SLEEP/ANX 03/20/22 05/19/22 History medroxyprogesterone 150 mg/mL 150 mg IM .Q3MO 03/20/22 05/19/22 History intramuscular suspension meloxicam 7.5 mg tablet 7.5 mg PO DAILY 03/20/22 05/19/22 History multivitamin 1 tab PO DAILY 03/20/22 05/19/22 History multivitamin with minerals 1 tab PO DAILY 03/20/22 05/19/22 History (Hair,Skin and Nails tablet) omeprazole 20 mg capsule,delayed 20 mg PO DAILY 03/20/22 05/19/22 History release ondansetron HCl 4 mg tablet 4 mg PO Q8 PRN Nausea 03/20/22 05/19/22 History trazodone 50 mg tablet 100 mg PO HS 03/20/22 05/19/22 History milk thistle 175 mg tablet 0 mg PO DAILY 05/19/22 05/19/22 History omega 1-uri-mny-fish oil 1,000 mg 1 cap PO DAILY 05/19/22 05/19/22 History (120 mg-180 mg) capsule (Fish Oil) Patient History Medical History Alcohol withdrawal Anxiety and depression Asthma "EPISODIC ASTHMA" NO INHALER Attention deficit disorder (ADD) Bilateral lumbar radiculopathy Bipolar disorder Degenerative disc disease Fibromyalgia GERD (gastroesophageal reflux disease) Hx of migraines Insulin resistance Post traumatic stress disorder Spinal stenosis Surgical History History of cholecystectomy History of discectomy LUMBAR (X 3) History of esophagogastroduodenoscopy (EGD) History of spinal fusion LUMBAR [place] teeth removed Social History Smoking Status: Current some day smoker Tobacco Type: E-cigarettes / Vaping Second Hand Exposure: No; Tobacco Cessation Education Requested by Patient: No Hx Alcohol Use: Yes Alcohol type: hard liquor Hx Substance Use: No Preferred Language: Indonesian Communication Ability: Effective Toolman Required: No Beliefs That Will Affect Care: None marital status: Single Current Living Situation: Parent Current Living Situation Comment: roomate current occupational status: unemployed and disabled Other Information That Helps Us Care for You: No Feels Safe at Home: Yes Safety Concerns: Feels Safe At This Time Assistive Devices: None Review of Systems Constitutional: no fever and no chills Eyes: no blind spots and no diplopia Ear, Nose, Mouth, Throat: no hearing loss Respiratory: no cough and no dyspnea Cardiovascular: no chest pain and no palpitations Gastrointestinal: as per Subjective / HPI, + nausea and + vomiting Genitourinary: no dysuria and no urinary incontinence Musculoskeletal: no back pain, no neck pain and no myalgia Integumentary: no rash and no lesions Neurologic: as per Subjective / HPI, + gait abnormality, + unsteadiness, + falls, + tremor(s) and + memory loss; no seizure-like activity and no headache(s) Psychiatric: + depression, + irritability and + anxiety; no hallucinations Hematologic / Lymphatic: no easy bleeding and no easy bruising Exam (Neuro) Constitutional: well developed and well nourished; no acute distress Eyes: normal visual hoskins by confrontation, PERRL, normal accommodation and EOM intact bilaterally; no fundoscopic abnormality, no nystagmus and no pap illedema Cardiovascular: Vessels: normal carotid upstroke; no carotid bruit Neurologic: Oriented to:: Person, Place and Time Memory: Short Term Intact and Remote Intact Attention: Span Intact and Concentration Intact Langua ge: Naming Objects and Repeating Phrases Speech Fluency: negative Dysarthria Speech Aphasia: negative Aphasia Fund of Knowledge: Current Events, Past History and Vocabulary Cranial Nerves: Normal II (Visual hoskins full to confrontation, visual acuity normal), III, IV, (Pupils equal round reactive to light and accommodation, eye movements normal), V (Facial sensation intact), VII (There is no facial droop or weakness), VIII (Hearing intact), IX, X (Palate elevates to midline), XI (Shoulder shrug intact) and XII (Tongue protrudes to midline) Motor Strength: Normal Lower Extremities and Normal Upper Extremities; negative Pronator Drift Motor Tone: Normal Lower Extremities and Normal Upper Extremities Muscle Bulk/Involuntary Movements: Intention Tremor and Action Tremor; negative Muscle Atrophy, Rest Tremor (Arm) or Head Tremor Sensation: Light Touch Intact, Pain/Temperature Intact and Proprioception Intact; negative Vibration Intact Coordination: Limited Balance; negative Dysdiadochokinesia, Finger-Nose Abnormal or Heel-Hector Abnormal Deep Tendon Reflexes: Rt Triceps: 2+, Lt Triceps: 2+, Rt Biceps: 2+, Lt Biceps: 2+, Rt Brachioradialis: 2+, Lt Brachioradialis: 2+, Rt Patellar: 2+, Lt Patellar: 2+, Rt Ankle: 1+ and Lt Ankle: 1+ Special Tests: negative Babinski Present Gait: Ataxic Results & Data ([facility]) Vital Signs (Past 12 Hours) Vital Signs Temp Pulse Pulse Resp BP BP Pulse Ox 05/19/22 11:23 36.8 C 93 H 20 155/113 H 166/125 H 97 05/19/22 07:21 99 H 05/19/22 05:23 36.8 C 88 18 99 05/19/22 03:19 36.7 C 104 H 18 132/89 97 05/19/22 03:14 97 H 05/19/22 01:55 36.7 C 95 H 18 154/115 H 100 05/19/22 01:10 36.9 C 96 H 18 146/104 H 100 05/19/22 00:47 36.7 C 96 H 18 146/104 H 100 O2 Del Method 05/19/22 11:23 Room Air 05/19/22 07:21 05/19/22 05:23 Room Air 05/19/22 03:19 Room Air 05/19/22 03:14 05/19/22 01:55 Room Air 05/19/22 01:10 Room Air 05/19/22 00:47 Room Air Laboratory Results WBC 6.35, hemoglobin 13.3, hematocrit 37.9, MCV 90.5, platelet count 179, sodium 139, potassium 4.2, BUN 15, creatinine 0.59, glucose 102, calcium 7.8, magnesium 2.1, AST 119, ALT 162, vitamin B12 702, folate greater than 22.30, ethyl alcohol level 280.0, SARS-CoV-2 testing negative. Diagnostic Findings A liver ultrasound reveals hepatomegaly with diffuse fatty infiltration of the liver. A CT of the abdomen and pelvis reveals small bowel ileus versus gastroenteritis. A CT of the head completed in September 2019 is as described in the HPI. Coding Level of Care Code 73833 Initial Inpt Care Lvl 3 Diagnoses Alcohol withdrawal F10.939 Alcoholic cerebellar degeneration F10.20; G31.2
[2022-05-19] MEDS ORDERED: GADOBUTROL 65ML VIAL IV ONE (13:11)
--- NOTE | 2022-05-19 14:08 | Magnetic Resonance Report ---
Brain MRI WITH AND WITHOUT CONTRAST HISTORY: confabulation/gait dysfunction TECHNIQUE: Multiplanar multisequence MRI of the brain was performed both before and after the intrave nous administration of contrast. COMPARISON STUDY: Head CT 09/22/2019. FINDINGS: There are no areas of restricted diffusion to suggest acute infarction. The midline structu res are intact. Trace fluid level in the right sphenoid sinus. The remaining paranasal sinuses are cl ear. There is minimal asymmetric thickening within the left dura/extra-axial space which also demonst rates asymmetric enhancement. This is best seen on coronal sequences 6 and 21. The mastoid air cells are clear. The ventricles and sulci are within normal limits for age. There is no mass or midline giuliana ft. The major vascular flow-voids at the skull base are well maintained. Postcontrast sequences show no areas of abnormal enhancement. IMPRESSION: 1. No acute infarct. 2. There is minimal asymmetric thickening within the left dura/extra-axial space which also demonstra oriana asymmetric enhancement. This could represent nonspecific pachymeningeal enhancement versus an age -indeterminate trace subdural hematoma. Follow-up head CT in 24 hours recommended to ensure stability . In addition, follow-up brain MRI in one month can be performed to ensure stability/resolution of th is abnormality. ACT 112: Negative or not required by law. Electronically signed by: Celso Calixto M.D. 05/19/2022 2:07 PM
--- NOTE | 2022-05-19 14:32 | Hospitalist Progress Note ---
Date of Service May 19, 2022 Assessment & Plan (1) Alcoholic cerebellar degeneration: (2) Fall: Plan: Present on admission with ambulatory dysfunction and falls Mostly related to alcohol abuse No focal neuro deficit Neuro on board recommended MRI head MRI no acute infarct. Minimal asymmetric thickening within the left dura/extra- axial space which also demonstrates asymmetric enhancement. Follow-up head CT in 24 hours recommended to ensure stability. Continue high dose IV thiamine PT/OT eval Fall precaution (3) Alcohol withdrawal: Plan: reports drinking vodka daily prior to admission denies history of alcohol withdrawal seizures Continue monitor closely for alcohol withdrawal protocol Continue gabapentin 400mg TID Pt refused psych consult Continue monitor closely for sign of Alcohol withdrawal or DT (4) Diarrhea: Plan: denies any symptoms currently Diet advanced as tolerated Stable (5) Transaminitis: Plan: Mostly due to alcohol abuse Liver enzymes elevated on admission with AST 189 and ALT 189 LFT decreased to AST 119 and ALT 162 Liver US 03/2022 consistent with fatty infiltrates Continue monitor closely Plan DVT ppx: heparin SC Code Status: Full Code Dispo: telemetry Admission and Anticipated Discharge Date Admission Date: May 19, 2022 Subjective Pt was seen and examined for follow up of fall and ambulatory dysfunction Lying in bed with no acute distress. Pt said that she feels alot better She said that she does not have any diarrhea, nausea and diarrhea today She said that at home she was falling, but denies any confusion Pt said that she does not drink as much as she used to Pt said that she has social anxiety and whenever she is in the hospital that her BP elevates Denies any chest pain, palpitation, dizziness and SOB Review of Systems Review of Systems: All systems reviewed & are unremarkable except as noted in Subjective Physical Exam Physical Exam: General- No acute distress Head- atraumatic Eyes- PERRL, EOMI, ENT- oropharynx clear Neck- supple, no JVD Lungs- clear to auscultation Heart- regular rhythm; no murmur Abdomen- normal bowel sounds, soft, nontender Extremities- no calf tenderness Neuro- alert, oriented x 3; PERRL, EOMI; no facial palsy; no dysarthria, Mild tremor, no nystagmus Skin- warm & dry Results & Data Results & Data ([facility]) Vital Signs (Past 12 Hours) Vital Signs Temp Pulse Pulse Resp BP BP Pulse Ox 05/19/22 11:23 36.8 C 93 H 20 155/113 H 166/125 H 97 05/19/22 07:21 99 H 05/19/22 05:23 36.8 C 88 18 99 05/19/22 03:19 36.7 C 104 H 18 132/89 97 05/19/22 03:14 97 H O2 Del Method 05/19/22 11:23 Room Air 05/19/22 07:21 05/19/22 05:23 Room Air 05/19/22 03:19 Room Air 05/19/22 03:14
[2022-05-19] MEDS: GABAPENTIN 400 MG CAP PO SCH ×2 (15:29→21:06)
[2022-05-19] MEDS ORDERED: CLOMIPRAMINE HCL 25 MG CAPSULE PO SCH (21:00)
[2022-05-19] MEDS ORDERED: LORazepam 2 MG in SYRINGE 1 ML IV PRN (22:18)
[2022-05-19] MEDS ORDERED: Ativan IV Alcohol Withdrawal--Active Protocol IV PRN (22:18)
[2022-05-19] MEDS ORDERED: LORazepam 3 MG in SYRINGE 1.5 ML IV PRN (22:18)
[2022-05-19] MEDS ORDERED: cloNIDine HCL 0.1 MG TAB PO ONE (22:20)
[2022-05-19] MEDS: LORazepam 1 MG in SYRINGE 0.5 ML IV PRN (23:39)
[2022-05-20] MEDS: THIAMINE HCL 500 MG in SODIUM CHLORIDE 0.9% 50 ML IV SCH ×2 (03:26→12:21)
[2022-05-20] MEDS: HEPARIN SOD 5,000 UNIT/0.5 ML VIAL SQ SCH ×2 (05:43→15:00)
[2022-05-20 08:30] LABS: Albumin Globulin Ratio 1.6 (0.9-2); Albumin Level 4.1 gm/dl (3.4-5.0); BUN Creatinine Ratio 20.5 (10-20); Bilirubin,Total 0.9 mg/dl (0.2-1.0); Creatinine Clr Calc Pharmacy 120.5 ml/min; Est GFR (African American) 109.4 ml/min; Est GFR (Non-African American) 94.4 ml/min; Globulin 2.6 gm/dl (2.5-4.0); Phosphorus 4.6 mg/dl (2.5-4.9); Potassium 3.6 mmol/L (3.5-5.1); Total Protein 6.7 gm/dl (6.0-8.3)
[2022-05-20] MEDS: BREXPIPRAZOLE 0.5 MG TAB PO SCH (08:55)
[2022-05-20] MEDS: hydroCHLOROthiazide 25 MG TAB PO SCH (08:56)
[2022-05-20] MEDS: BREXPIPRAZOLE 1 MG TAB PO SCH (08:56)
[2022-05-20] MEDS: amLODIPine BESYLATE 5 MG TAB PO SCH (08:57)
[2022-05-20] MEDS: GABAPENTIN 400 MG CAP PO SCH ×2 (08:57→12:21)
[2022-05-20] MEDS: PANTOprazole 40 MG TAB PO SCH (08:57)
[2022-05-20] MEDS: LORazepam 1 MG in SYRINGE 0.5 ML IV PRN (12:21)
--- NOTE | 2022-05-20 13:09 | Neurology Progress Note ---
Date of Service May 20, 2022 Assessment & Plan (1) Alcoholic cerebellar degeneration: (2) Alcohol withdrawal: (3) Abnormal brain MRI: Plan 41-year-old female with alcohol withdrawal and suspected alcoholic cerebellar degeneration. Patient's tremors are improved today. Her gait difficulty/ataxia is a chronic issue, over at least the past 6 months. Although her brain MRI does not reveal significant cerebellar vermian atrophy, I am unable to completely exclude an element of alcohol-related cerebellar degeneration. She could also have an element of peripheral neuropathy, related to either alcohol or possibly a prediabetic condition. Her brain MRI does reveal some nonspecific left-sided dural thickening and enhancement. I believe this finding would be related to a residual trace subdural hematoma given her history of recurrent falls with associated head injury. Patient should have a follow-up noncontrast CT of the head completed today. I also agree that a follow-up gadolinium-enhanced brain MRI should be completed in 1 month to continue to ensure stability. Patient should continue to abstain from alcohol consumption. She may benefit from psychiatry involvement in this regard, she reportedly has a psychiatrist who has been assisting with management of her anxiety. Patient should continue with supplemental thiamine. Patient may follow-up with myself or an GENARO in the outpatient neurology clinic in 3 to 4 weeks, to assist with obtaining the follow-up gadolinium-enhanced brain MRI, which again, should be completed in 1 month. Admission and Anticipated Discharge Date Admission Date: May 19, 2022 Subjective Follow-up for alcoholic related cerebellar degeneration The patient reports that her tremor is modestly improved today. She continues to complain of some difficulty with gait and balance, but believes that this issue has been improving as well. She remarks that her symptoms were more severe in the context of her recent gastrointestinal illness characterized by abdominal pain, vomiting, and diarrhea. I did review the results of her gadolinium-enhanced brain MRI completed yesterday. I do appreciate an area of dural thickening and asymmetric enhancement along the left potentially consistent with a trace subdural hematoma related to her history of multiple falls complicated by head injury. Remaining brain parenchyma grossly normal, no significant abnormality on T2/FLAIR images. No hydrocephalus. Does not appear to have focal cerebellar atrophy. I reviewed these results directly with the patient today as well. There is recommendation for additional imaging including CT of the head which should be done today, as well as a follow-up gadolinium- enhanced brain MRI to be done in 1 month to continue to ensure stability. Review of Systems Constitutional: no fever and no chills Neurologic: as per Subjective / HPI, + gait abnormality and + tremor(s); no headache(s) Results & Data ([facility]) Vital Signs (Past 12 Hours) Vital Signs Temp Pulse Pulse Resp BP Pulse Ox O2 Del Method 05/20/22 11:54 37.0 C 104 H 18 198/118 H 99 Room Air 05/20/22 07:44 121 H 05/20/22 07:00 37.2 C 91 H 20 168/122 H 98 Room Air 05/20/22 03:18 36.5 C 92 H 18 129/84 97 05/20/22 01:00 104 H Coding Level of Care Code 76979 Subseq Hosp Care Lvl 2 Diagnoses Alcoholic cerebellar degeneration F10.20; G31.2 Alcohol withdrawal F10.939 Abnormal brain MRI R90.89
--- NOTE | 2022-05-20 14:56 | CT Scan Report ---
CT OF THE HEAD WITHOUT CONTRAST CLINICAL HISTORY: F/U Left-sided dural thickening and enhancement COMPARISON STUDY: Head CT September 22, 2019. MRI of the brain May 19, 2022. CT DOSE: 537.48 mGy.cm TECHNIQUE: Helical axial images of the head were obtained without IV contrast. Automated exposure con trol was utilized for the study. A dose lowering technique was utilized adhering to the principles o f ALARA. FINDINGS: No acute intracranial hemorrhage, midline shift or mass effect is present. There is no CT c orrelate for the minimal asymmetric thickening within the left dura/extra-axial spaces shown on MRI o f May 19, 2022. The ventricular system is unremarkable. The basal cisterns are patent. No extra- axial collections are present. There are no findings to suggest acute dural sinus thrombosis or acute territorial infarct. Visualized portions of the sinuses and mastoid air cells are clear. A small lef t posterior scalp contusion is noted. There is no calvarial fracture. IMPRESSION: 1. No acute intracranial findings. No CT correlate for the finding on MRI of May 19, 2022. The s ignificance of this finding is uncertain. This can be assessed with a follow-up MRI of the brain in o ne month. 2. Small left posterior scalp contusion. No calvarial fracture. ACT 112: Negative or not required by law. Electronically signed by: Pedro Rodriguez M.D. 05/20/2022 2:54 PM
--- NOTE | 2022-05-20 15:46 | Hospitalist Progress Note ---
Date of Service May 20, 2022 Assessment & Plan (1) Alcoholic cerebellar degeneration: (2) Fall: Plan: Present on admission with ambulatory dysfunction and falls Mostly related to alcohol abuse No focal neuro deficit Neuro on board recommended MRI head MRI no acute infarct. Minimal asymmetric thickening within the left dura/extra- axial space which also demonstrates asymmetric enhancement. repeat CT done today showed no acute intracranial findings. No CT correlate for the finding on MRI of May 19, 2022. Small left posterior scalp contusion. case discussed with neurology that recommended to repeat gadolinium-enhanced brain MRI in 1 month to continue to ensure stability. Currently on high dose IV thiamine, will transition to PO thiamine supplement and folic acid Continue PT/OT Fall precaution (3) Alcohol withdrawal: Plan: reports drinking vodka daily prior to admission denies history of alcohol withdrawal seizures Continue monitor closely for alcohol withdrawal protocol Continue gabapentin 400mg TID Pt refused psych consult ( consult was cancelled Continue monitor closely for sign of Alcohol withdrawal or DT Counseling on alcohol cessation (4) Diarrhea: Plan: denies any symptoms currently Diet advanced as tolerated Stable (5) Transaminitis: Plan: Mostly due to alcohol abuse Liver enzymes elevated on admission with AST 189 and ALT 189 LFT decreased to AST 119 and ALT 162 Liver US 03/2022 consistent with fatty infiltrates Continue monitor closely Plan DVT ppx: heparin SC Code Status: Full Code Disposition Plan to discharge if BP improves Admission and Anticipated Discharge Date Admission Date: May 19, 2022 Subjective Pt was seen and examined for follow up of fall and ambulatory dysfunction Lying in bed with no acute distress. Pt has been walking in the hallway as per nurse Her BP has been elevated Pt said that she has social anxiety and whenever she is in the hospital that her BP elevates She said that she is doing much better today Her tremor improves She is very anxious to go home today Denies any chest pain, palpitation, dizziness and SOB Review of Systems Review of Systems: All systems reviewed & are unremarkable except as noted in Subjective Physical Exam Physical Exam: General- No acute distress Head- atraumatic Eyes- PERRL, EOMI, ENT- oropharynx clear Neck- supple, no JVD Lungs- clear to auscultation Heart- +tachycardia; no murmur Abdomen- normal bowel sounds, soft, nontender Extremities- no calf tenderness Neuro- alert, oriented x 3; PERRL, EOMI; no facial palsy; no dysarthria, no nystagmus Skin- warm & dry Results & Data Results & Data ([facility]) Vital Signs (Past 12 Hours) Vital Signs Temp Pulse Pulse Resp BP Pulse Ox O2 Del Method 05/20/22 11:54 37.0 C 104 H 18 198/118 H 99 Room Air 05/20/22 07:44 121 H 05/20/22 07:00 37.2 C 91 H 20 168/122 H 98 Room Air
[2022-05-20] MEDS: LABETALOL HCL IV 5 MG/ML 20ML IV STA ×2 (16:17→16:42)
--- NOTE | 2022-05-20 17:10 | Discharge Summary ---
Date of Service May 20, 2022 Admission HPI Per Admitting Provider Chief Complaint: n/v/d and abdominal pain Primary Care Provider: Stacia Arreola MD The patient is a 41 year old woman with pmh HTN, alcohol use disorder, psych history who presented with 4 days of n/v/d as well as abdominal pain and gait dysfunction. She reports that she started with abdominal pain on Tuesday05/15/2022 and had nausea and vomiting that came intermittently. She reports she also developed diarrhea which persisted until day of presentation. She describes the abdominal pain as cramping and severe. She denies blood in her stools or vomit and denies PO intolerance. She denied fever or chills, chest pain, shortness of breath, light headedness or dizziness, dysuria. She reports gait dysfunction as feeling like she does not have control of her body. This has been going on for about 1 week now. She denies any back pain, numbness or tingling in her legs or weakness. She has not seen anyone yet for these issues. She reports alcohol use and frequent relapses, most recently last Tuesday and has been drinking daily since then to prevent withdrawal, she reports. She denies having a withdrawal seizure in the past. She reports to me her last drink was the day of admission, she told the nurse her last drink was last Tuesday. She reported some withdrawal symptoms on presentation, received ativan and zofran and improved, she also reported improvement in her abdominal cramping. In the ED, vitals were stable. Labs were significant for WBC 5.5, HCO3- 19, AST 189, ALT 189, ALP 99, tbili 0.4, UA unremarkable, ETOH 208. She was given IVF and admitted to medicine. Admission Exam Per Admitting Provider Constitutional: WD/WN, vitals as above Eyes: PERRL, conjunctivae normal, anicteric sclerae ENMT: external ear and nose normal, oropharynx normal Neck: trachea midline, no thyromegaly Respiratory: normal respiratory effort, lungs clear to auscultation Cardiovascular: RRR, no murmur, no edema Gastrointestinal (Abdomen): normal bowel sounds, soft, nontender, no hepatosplenomegaly Musculoskeletal: no cyanosis or clubbing, extremities motor strength 5/5 Skin: no rashes, warm and dry Neurologic: patellar DTR's 2+ bilat, sensation intact awake; no focal motor deficits Motor/Sensory: no tremor and no fasciculations Coordination: + abnormal Romberg test; normal hualnl-[id number]-[id number] test Psychiatric: A+Ox3, euthymic affect Principal Diagnosis Alcoholic cerebellar degeneration: Fall: Alcohol withdrawal: Transaminitis: Abnormal brain MRI: Discharge Exam General- No acute distress Head- atraumatic Eyes- PERRL, EOMI, ENT- oropharynx clear Neck- supple, no JVD Lungs- clear to auscultation Heart- +tachycardia; no murmur Abdomen- normal bowel sounds, soft, nontender Extremities- no calf tenderness Neuro- alert, oriented x 3; PERRL, EOMI; no facial palsy; no dysarthria, no nystagmus Skin- warm & dry Discharge Data Allergies Allergy/AdvReac Type Severity Reaction Status Date / Time Sulfa (Sulfonamide Allergy Severe anaphylaxis Verified 05/19/22 00:45 Antibiotics) Consultations 05/18/22 23:35 ED Decision to Admit Stat 05/19/22 03:04 Consult Neurology Routine Ordered Studies 05/19/22 10:24 MRI Brain [MR brain wo/w con] Routine 05/20/22 13:41 CT head/brain wo con Routine CT OF THE HEAD WITHOUT CONTRAST CLINICAL HISTORY: F/U Left-sided dural thickening and enhancement COMPARISON STUDY: Head CT September 22, 2019. MRI of the brain May 19, 2022. CT DOSE: 537.48 mGy.cm TECHNIQUE: Helical axial images of the head were obtained without IV contrast. Automated exposure control was utilized for the study. A dose lowering technique was utilized adhering to the principles of ALARA. FINDINGS: No acute intracranial hemorrhage, midline shift or mass effect is present. There is no CT correlate for the minimal asymmetric thickening within the left dura/extra-axial spaces shown on MRI of May 19, 2022. The ve ntricular system is unremarkable. The basal cisterns are patent. No extra-axial collections are present. There are no findings to suggest acute dural sinus thrombosis or acute territorial infarct. Visualized portions of the sinuses and mastoid air cells are clear. A small left posterior scalp contusion is noted. There is no calvarial fracture. IMPRESSION: 1. No acute intracranial findings. No CT correlate for the finding on MRI of May 19, 2022. The significance of this finding is uncertain. This can be assessed with a follow-up MRI of the brain in one month. 2. Small left posterior scalp contusion. No calvarial fracture. ACT 112: Negative or not required by law. Electronically signed by: Pedro Rodriguez M.D. 05/20/2022 2:54 PM Dictated:05/20/22 1449 Transcribed: 05/20/22 1449 Brain MRI WITH AND WITHOUT CONTRAST HISTORY: confabulation/gait dysfunction TECHNIQUE: Multiplanar multisequence MRI of the brain was performed both before and after the intravenous administration of contrast. COMPARISON STUDY: Head CT 09/22/2019. FINDINGS: There are no areas of restricted diffusion to suggest acute infarction. The midline structures are intact. Trace fluid level in the right sphenoid sinus. The remaining paranasal sinuses are clear. There is minimal asymmetric thickening within the left dura/extra-axial space which also demonstrates asymmetric enhancement. This is best seen on coronal sequences 6 and 21. The mastoid air cells are clear. The ventricles and sulci are within normal limits for age. There is no mass or midline shift. The major vascular flow-voids at the skull base are well maintained. Postcontrast sequences show no areas of abnormal enhancement. IMPRESSION: 1. No acute infarct. 2. There is minimal asymmetric thickening within the left dura/extra-axial space which also demonstrates asymmetric enhancement. This could represent nonspecific pachymeningeal enhancement versus an age-indeterminate trace subdural hematoma. Follow-up head CT in 24 hours recommended to ensure stability. In addition, follow-up brain MRI in one month can be performed to ensure stability/resolution of this abnormality. ACT 112: Negative or not required by law. Electronically signed by: Celso Calixto M.D. 05/19/2022 2:07 PM Dictated:05/19/22 1353 Transcribed: 05/19/22 1353 Hospital Course (1) Alcoholic cerebellar degeneration: (2) Fall: Present on admission with ambulatory dysfunction and falls Mostly related to alcohol abuse No focal neuro deficit Neuro on board recommended MRI head MRI no acute infarct. Minimal asymmetric thickening within the left dura/extra- axial space which also demonstrates asymmetric enhancement. repeat CT done today showed no acute intracranial findings. No CT correlate for the finding on MRI of May 19, 2022. Small left posterior scalp contusion. case discussed with neurology that recommended to repeat gadolinium-enhanced brain MRI in 1 month to continue to ensure stability. Currently on high dose IV thiamine, will transition to PO thiamine supplement and folic acid Continue PT/OT Fall precaution (3) Alcohol withdrawal: reports drinking vodka daily prior to admission denies history of alcohol withdrawal seizures Continue monitor closely for alcohol withdrawal protocol Continue gabapentin 400mg TID Pt refused psych consult ( consult was cancelled Continue monitor closely for sign of Alcohol withdrawal or DT Counseling on alcohol cessation (4) Diarrhea: denies any symptoms currently Diet advanced as tolerated Stable (5) Transaminitis: Mostly due to alcohol abuse Liver enzymes elevated on admission with AST 189 and ALT 189 LFT decreased to AST 119 and ALT 162 Liver US 03/2022 consistent with fatty infiltrates Continue monitor closely Plan DVT ppx: heparin SC Code Status: Full Code Disposition Plan to discharge if BP improves Total Time Total Time Spent Total Time Spent (In Minutes): 35 minutes Discharge Plan Discharge Items Patient Disposition: Home - Self-Care Reason For Visit: NAUSEA, VOMITTING, DIARRHEA Discharge Diagnosis: Alcoholic cerebellar degeneration: Fall: Alcohol withdrawal: Transaminitis: Abnormal brain MRI: Activity: Resume your previous activity Non-emergency contact: Primary Care Provider, Head Buyer Tobacco, Neurologist and Psychiatrist Call non-emergency contact if: you have any medication questions Follow-up/Referrals: Stacia Arreola MD [Primary Care Provider] - (Date & Time 05/25/2022 2:00 PM Provider Stacia Arreola MD Department General Internal Medicine [facility] ) Bernarda Huizar PA-C [Physician Business Dean] - (Date & Time 06/07/2022 8:30 AM Provider Bernarda Huizar PA-C Department Cardiology, [facility] ) Diet: Heart Healthy Addtl Attending Provider Instructions: Follow up with your primary care provider @2:00 PM Stacia Arreola MD Department General Internal Medicine [facility] Follow up with cardiology ( that was already scheduled) 06/07/2022 @8:30 AM Bernarda Huizar PA-C Department Cardiology, [facility] Follow up with outpatient neurology Dr. Real or his colleague in 3 to 4 weeks (Please call for the appointment @ [phone] if no one from the office call you in 1 week ) Follow up with your psychiatry to manage your anxiety Your recent MRI that was done in the hospital showed nonspecific left-sided dural thickening and enhancement. You will need a repeat follow up MRI brain in 1 month to ensure stability Counseling on alcohol cessation Continue monitor your blood pressure and bring your blood pressure reading at your next appointment with your provider Continue physical therapy outpatient ( script given ) Continue monitor your liver enzymes ( your provider will order lab ) Fall precaution Please seek medical attention if your symptoms reoccur Pending Studies at Discharge: No Stand-Alone Forms: My [facility], Smoking Cessation Medications and DC Order Prescriptions: New thiamine HCl (vitamin B1) 100 mg tablet 100 mg PO DAILY Qty: 30 0RF folic acid 1 mg tablet 1 mg PO DAILY Qty: 30 0RF Continued gabapentin 400 mg Capsule 400 mg PO TID Rx Instructions: Take in am, noon, hs meloxicam 7.5 mg tablet 7.5 mg PO DAILY benztropine 0.5 mg tablet 0.5 mg PO DAILY trazodone 50 mg tablet 100 mg PO HS ondansetron HCl 4 mg tablet 4 mg PO Q8 PRN (Reason: Nausea) carbamazepine 200 mg tablet 600 mg PO QAM amlodipine 10 mg tablet 10 mg PO DAILY dextroamphetamine-amphetamine 20 mg tablet 10 mg PO QAM dextroamphetamine-amphetamine 20 mg tablet 20 mg PO QAM hydrochlorothiazide 12.5 mg capsule 12.5 mg PO DAILY omeprazole 20 mg capsule,delayed release(DR/EC) 20 mg PO DAILY lorazepam 1 mg tablet 1 mg PO HS PRN (Reason: SLEEP/ANX) clomipramine 25 mg capsule 25 mg PO HS fluticasone propionate 50 mcg/actuation spray,suspension 2 spray INTRANASAL BID medroxyprogesterone 150 mg/mL suspension 150 mg IM .Q3MO Rexulti 0.5 mg tablet 0.5 mg PO DAILY Rexulti 1 mg tablet 1 mg PO DAILY Rx Instructions: Take with 0.5 mg tab multivitamin Tablet 1 tab PO DAILY cyanocobalamin (vitamin B-12) [Vitamin B-12] 100 mcg Tablet 0 mcg PO 3XWK calcium-magnesium 750-465 mg Tablet 1 tab PO DAILY Rx Instructions: PLUS POTASSIUM Hair,Skin and Nails Tablet 1 tab PO DAILY milk thistle 175 mg Tablet 0 mg PO DAILY Rx Instructions: give with meal/snack omega 1-kgg-yec-fish oil [Fish Oil] 1,000 mg (120 mg-180 mg) Capsule 1 cap PO DAILY Rx Instructions: unknown strength Discharge Orders: Discharge Order (Routine); Ordered 05/20/22 Ordered By: Suraj Baker Admission Data Admit Date/Time: 05/19/22 00:02 Attending Provider: Suraj Baker Admit Provider: Vera Martin Primary Care Provider: Stacia Arreola Other Providers: Vera Martin ; Harjinder Real ; Walker Boykin
[2022-05-22] MEDS ORDERED: THIAMINE HCL 250 MG in SODIUM CHLORIDE 0.9% 50 ML IV SCH (09:00)
== END 2022-05-20 19:03 | disposition home or self-care (01) ==
LOC: ED 20:26 → 2N 20:26 → SUATTDRO 05-19 00:02 → 2N 05-19 00:29

== ENCOUNTER 2023-03-08 00:41 | Observation (INO) ==
--- NOTE | 2023-03-08 01:07 | Emergency Department Note ---
Impression & Plan Tegretol toxicity, Slurred speech, Ataxia ED Provider Note Name: KHARI PARIS Age: 42 Sex: F Arrives Via: Walk-In Informant: Patient, father ED Provider: Jean-Paul Espinoza MD Chief Complaint: Paresthesias, slurred speech and somnolence Impression: As per impressions above Medical Decision Makin-year-old female with extensive past medical history on multiple medications including her Tegretol, clomipramine, Flexeril, Adderall, gabapentin, Ativan, trazodone, benztropine amongst others arrives for evaluation of 1 week of paresthesias, somnolence, waking at night feeling like she is going to , any other complaints. Her father who is at bedside though notes that her difficulty walking straight and slurred speech are definitively new as well as she seems a bit more somnolent than normal. On exam patient does have slurred speech versus a lisp but no specific cranial nerve deficit or ataxia. Extensive work-up obtained given her history which included CT of the head, EKG, laboratory work- up. CT head is unremarkable. EKG looks good. Laboratory work-up is essentially benign other than her Tegretol level is actually at 12.7. This is above the therapeutic range. Patient admits that she has recently been increasing her Tegretol. I discussed the case with poison control who do note that her symptoms could be secondary to accidental Tegretol overdose. Patient makes it very clear she is not have thoughts of harming herself or others. Had a somewhat circular discussion with the patient regarding plan for hospitalization but she continued returning to concern that symptoms will return if she goes back home. Patient is somewhat fixated on the possibility that there is an environmental cause of her symptoms such as a refrigerator fluid poisoning. I suspect her symptoms are likely due to her medications and interactions possibly exacerbated by elevated Tegretol level. Given her exam I think it is unlikely there is an acute stroke though underlying stroke is a possibility in this patient given her extensive history. I did obtain an ammonia to rule out hepatic encephalopathy and her exam is just not consistent with that. Of note patient is not currently intoxicated. Prior Medical Record and Triage/Nursing Notes reviewed by Me Extensive external chart reviewed by me Differentials:Overdose, toxicologic, infection, hypoglycemia, electrolyte abnormalities, cardiac sources, intracerebral event, neurologic, trauma, as well as other pathologies. Vital Signs: reviewed and remarkable for no significant abnormalities Interventions: Normal saline bolus Labs:Reviewed and remarkable for elevated Tegretol level Imaging:CT of the head as per my informal interpretation reveals no intrac ranial hemorrhage, mass effect EKG:As per my interpretation. Indication weakness. Sinus tach 100 bpm with QTc 469. There is no ectopy nor ischemia. When compared to EKG of September 22, 2019 there is no significant change Cardiac/Tele Monitoring: Cardiac Monitoring: An Order was placed for continuous cardiac monitoring. The monitor shows a rate of 100 with a normal sinus rhythm. Consults:[place] [facility] via phone. Suggested continued monitoring in the hospital setting and repeat levels to verify they are trending down as well as continued eval for other causes of symptoms. Discussed with Dr. Quezada of the [facility] service Plan: Disposition:Hospitalization. Condition: Good History of Present Illness:43-year-old female with extensive past medical history arrives for evaluation of not feeling right. Patient notes for the last week she has been having pains anytime when blows on her. This is associated with increasing confusion and difficulty walking. She notes her speech is now slurred. She is concerned that she is being poisoned by refrigerant from a leaking refrigerator. She states the symptoms are worse in her bedroom and gets better if she walks into the kitchen. Patient also at times has headaches, sore throat, body aches. She notes that she is awoken at night all of a sudden thinking that she is about to . She is not having any specific chest pain palpitations difficulty breathing. She does note that her heart rate seem to be fast earlier and that her oxygen was low when she checked it at home. She was not feeling short of breath at this time though. She states that she feels very foggy at times. Symptoms do tend to come and go and fluctuate rapidly at home. She denies any symptoms currently. Her father who is at bedside states that the slurred speech and difficulty walking continues and is new. He states this is not her baseline. Patient makes it clear she is not drinking alcohol or doing any drugs recently. Patient does admit that she has been taking a high protein concentrate to help with her chronic stomach pains. Past History:See Below Home Medications:See Below Allergies:See Below Vitals:Blood Pressure: 156/79, Pulse 106, RR 20, T 36.5C, O2 100% on RA Physical Exam: GENERAL: Patient is somnolent appearing and in minimal distress. While somnolent patient does appear a bit anxious. EYES: No scleral icterus, unremarkable pupils. HEAD: AT/NC RESPIRATORY: No dyspnea. Clear to auscultation and equal bilaterally. No wheeze, no rhonchi. CARDIOVASCULAR: Mildly tachycardic.No murmurs, rubs, gallops appreciated. GASTROINTESTINAL: Abdomen soft, non-tender, no peritonitis.Bowel sounds positive.No masses appreciated. BACK: No midline tenderness, no CVA tenderness EXTREMITIES: Normal motion all extremities, no cyanosis, no edema. NEUROLOGIC: Alert and oriented, answers all questions, moves all extremities. Patient does have a slight lisp which father states is new. No focal neurologic deficits otherwise and cranial nerves appear intact via examination. SKIN: No rash, no jaundice, no diaphoresis. PSYCH: Mildly anxious though somnolent. GCS: 15 ED Course: Times/Reassessments: Patient is stable and heart rate has come down some with IV fluids. Jean-Paul Espinoza MD Past Med/Surg History Medical History Abnormal brain MRI Alcohol withdrawal pt denies Alcohol withdrawal Alcoholic cerebellar degeneration Anxiety and depression Asthma "EPISODIC ASTHMA" NO INHALER Attention deficit disorder (ADD) Bilateral lumbar radiculopathy Bipolar disorder Chronic alcohol abuse pt denies Degenerative disc disease Fall Fibromyalgia GERD (gastroesophageal reflux disease) Hx of migraines Insulin resistance Post traumatic stress disorder Spinal stenosis Transaminitis Weakness Surgical History History of cholecystectomy History of discectomy LUMBAR (X 3) History of esophagogastroduodenoscopy (EGD) History of spinal fusion LUMBAR Reva teeth removed Family History (Updated 06/18/22 @ 14:36 by Vera Wagner RN) Mother Diabetes Social History Smoking Status: Current every day smoker Tobacco Type: E-cigarettes / Vaping Second Hand Exposure: No; Do You Dip or Chew Tobacco: No; Hx Alcohol Use: No Hx Substance Use: No Preferred Language: Welsh Communication Ability: Effective Nursing Home Admissions Director Required: No Beliefs That Will Affect Care: None marital status: Single Current Living Situation: Family Current Living Situation Comment: roomate current occupational status: unemployed and disabled Feels Safe at Home: Yes Assistive Devices: Glasses Allergies Allergies Allergy/AdvReac Type Severity Reaction Status Date / Time Sulfa (Sulfonamide Allergy Severe anaphylaxis Verified 03/08/23 01:36 Antibiotics) Home Meds Home Medications Medication Instructions Recorded Confirmed gabapentin 400 mg capsule 400 mg PO TID 06/18/20 03/08/23 amlodipine 10 mg tablet 10 mg PO QAM 03/20/22 03/08/23 benztropine 0.5 mg tablet 0.5 mg PO QAM 03/20/22 03/08/23 brexpiprazole 1 mg tablet (Rexulti) 1 mg PO QAM 03/20/22 03/08/23 clomipramine 25 mg capsule 25 mg PO HS 03/20/22 03/08/23 dextroamphetamine-amphetamine 20 30 mg PO QAM 03/20/22 03/08/23 mg tablet fluticasone propionate 50 2 spray intranasal BID 03/20/22 03/08/23 mcg/actuation nasal spray,suspension hydrochlorothiazide 12.5 mg capsule 12.5 mg PO QAM 03/20/22 03/08/23 lorazepam 1 mg tablet 1 mg PO HS PRN SLEEP/ANXIETY 03/20/22 03/08/23 medroxyprogesterone 150 mg/mL 150 mg IM .Q3MO 03/20/22 03/08/23 intramuscular suspension meloxicam 7.5 mg tablet 7.5 - 15 mg PO QAM PRN Pain 03/20/22 03/08/23 multivitamin with minerals 1 tab PO QAM 03/20/22 03/08/23 (Hair,Skin and Nails tablet) omeprazole 20 mg capsule,delayed 20 mg PO QAM 03/20/22 03/08/23 release ondansetron HCl 4 mg tablet 4 mg PO Q6H PRN Nausea 03/20/22 03/08/23 trazodone 50 mg tablet 50 - 100 mg PO HS 03/20/22 03/08/23 milk thistle 175 mg tablet 175 mg PO QAM 05/19/22 03/08/23 omega 9-odi-rce-fish oil 1,000 mg 1 cap PO QAM 05/19/22 03/08/23 (120 mg-180 mg) capsule (Fish Oil) albuterol sulfate 90 mcg/actuation 2 inh inhalation Q4H PRN 06/18/22 03/08/23 aerosol inhaler (Ventolin HFA) Wheezing/COLD SYMPTOMS fluticasone furoate 200 1 inh inhalation QAM 06/18/22 03/08/23 mcg-vilanterol 25 mcg/dose inhalation powder (Breo Ellipta) methylcellulose (laxative) 500 mg 500 mg PO BID 06/18/22 03/08/23 tablet (Citrucel) polyethylene glycol 3350 17 17 g PO QAM 06/18/22 03/08/23 gram/dose oral powder (Miralax) Bifidobacterium infantis 4 mg 4 mg PO BID 03/08/23 03/08/23 capsule (Align) acetic acid 2 % ear solution 3 drp OTL TID 03/08/23 03/08/23 albuterol sulfate 2.5 mg/3 mL 2.5 mg inhalation QID PRN 03/08/23 03/08/23 (0.083 %) solution for nebulization CONGESTION/COLD SYMPTOMS bimatoprost 0.03 % drops with 1 applic topical HS PRN AFFECTED 03/08/23 03/08/23 applicator, eyelash base (Latisse) AREA NEEDED carbamazepine 400 mg 800 mg PO QAM 03/08/23 03/08/23 tablet,extended release,12 hr cholecalciferol (vitamin D3) 25 25 mcg PO DAILY 03/08/23 03/08/23 mcg (1,000 unit) capsule (Vitamin D3) cyanocobalamin (vitamin B-12) 500 500 mcg PO DAILY 03/08/23 03/08/23 mcg tablet (Vitamin B-12) cyclobenzaprine 10 mg tablet 10 mg PO TID PRN MUSCLE SPASMS 03/08/23 03/08/23 ferrous sulfate 27 mg iron tablet 27 mg PO DAILY 03/08/23 03/08/23 linaclotide 145 mcg capsule 145 mcg PO DAILYBB 03/08/23 03/08/23 (Linzess) loratadine 10 mg tablet (Claritin) 10 mg PO HS 03/08/23 03/08/23 magnesium oxide 200 mg PO DAILY 03/08/23 03/08/23 multivit-iron 18 mg-folic acid 400 1 tab PO QAM 03/08/23 03/08/23 mcg-calcium 500 mg-minerals tablet (Women's One Daily) naltrexone 50 mg tablet 50 mg PO DAILY 03/08/23 03/08/23 propranolol 20 mg tablet 10 mg PO DIRECTED PRN Anxiety 03/08/23 03/08/23 turmeric root extract 500 mg tablet 500 mg PO DAILY 03/08/23 03/08/23 Results & Data (ED) Vital Signs Vital Signs - 24 hr 03/08/23 00:45 03/08/23 01:45 03/08/23 01:03 Temperature 36.5 C Temperature Source Temporal Artery Scan Pulse Rate 106 H 92 H Pulse Rate [Apical] 88 Pulse Rate from SpO2 Sensor Respiratory Rate 20 16 Respiratory Effort / Characteristics Non-Labored Spontaneous Non-Labored Spontaneous Respiratory Depth Normal Normal Respiratory Pattern Regular Blood Pressure 156/79 H Blood Pressure [Left Arm] 105/74 Blood Pressure Mean 104 Blood Pressure Mean [Left Arm] 84 Blood Pressure Position Sitting Blood Pressure Position [Left Arm] Sitting Pulse Oximetry 100 96 Oxygen Delivery Method Room Air Room Air Sepsis Recent Fever Within 48 Hours No Sepsis New/Unexplained Change in Mental Status N/A Sepsis Action Taken by Nursing No Action Required 03/08/23 02:01 03/08/23 02:01 03/08/23 03:00 Temperature Temperature Source Pulse Rate 91 H Pulse Rate [Apical] Pulse Rate from SpO2 Sensor Respiratory Rate 17 Respiratory Effort / Characteristics Respiratory Depth Respiratory Pattern Blood Pressure 126/81 131/94 Blood Pressure [Left Arm] Blood Pressure Mean 96 108 Blood Pressure Mean [Left Arm] Blood Pressure Position Blood Pressure Position [Left Arm] Pulse Oximetry Oxygen Delivery Method Sepsis Recent Fever Within 48 Hours Sepsis New/Unexplained Change in Mental Status Sepsis Action Taken by Nursing 03/08/23 03:00 03/08/23 05:56 Temperature Temperature Source Pulse Rate 86 Pulse Rate [Apical] Pulse Rate from SpO2 Sensor 83 Respiratory Rate 16 Respiratory Effort / Characteristics Respiratory Depth Respiratory Pattern Blood Pressure Blood Pressure [Left Arm] Blood Pressure Mean Blood Pressure Mean [Left Arm] Blood Pressure Position Blood Pressure Position [Left Arm] Pulse Oximetry 99 Oxygen Delivery Method Room Air Room Air Sepsis Recent Fever Within 48 Hours Sepsis New/Unexplained Change in Mental Status Sepsis Action Taken by Nursing Laboratory Data 03/08/23 01:29 03/08/23 01:33 Lab Results 03/08/23 03/08/2303/08/23 Range/Units 01:29 01:29 01:29 WBC 7.30 (4.8-10.8) K/ul RBC 4.56 (4.20-5.40) M/uL Hgb 14.5 (12.0-16.0) g/dl Hct 41.0 (37.0-47.0) % MCV 89.9 (80.0-100.0) fL MCH 31.8 (25.0-34.0) pg MCHC 35.4 (32.0-36.0) g/dL RDW Std Deviation 43.8 (36.4-46.3) fL RDW Coeff of Ellen 13.2 (11.5-14.5) % Plt Count 250 (130-400) K/uL MPV 9.4 (9.4-12.4) fL Immature Gran % (Auto) 0.4 % Neut % (Auto) 60.0 % Lymph % (Auto) 27.3 % Wolfe % (Auto) 7.5 % Eos % (Auto) 4.0 % Baso % (Auto) 0.8 % Neut # (Auto) 4.38 (1.40-6.50) K/uL Lymph # (Auto) 1.99 (1.2-3.4) K/uL Wolfe # (Auto) 0.55 (0.11-0.59) K/uL Eos # (Auto) 0.29 (0-0.50) K/uL Baso # (Auto) 0.06 (0-0.2) K/uL Immature Gran # (Auto) 0.03 (0.01-0.20) K/uL PT 10.9 (9.0-12.0) Seconds INR 1.0 (0.9-1.1) Sodium (136-145) mmol/L Potassium (3.5-5.1) mmol/L Chloride (98-107) mmol/L Carbon Dioxide (21-32) mmol/L Anion Gap (3-11) BUN (6-23) mg/dl Creatinine (0.6-1.2) mg/dl Est Cr Clr Drug Dosing ml/min Est GFR ( Amer) ml/min Est GFR (Non-Af Amer) ml/min BUN/Creatinine Ratio (10-20) Glucose (70-99(Fasting)) mg/dl Calcium (8.6-10.3) mg/dl Magnesium (1.7-2.4) mg/dl Total Bilirubin (0.2-1.0) mg/dl Direct Bilirubin (0-0.2) mg/dl AST (13-39) U/L ALT (7-52) U/L Alkaline Phosphatase (34-104) U/L Ammonia 33.0 (18-72) umol/L Troponin I High Sens (0-14) pg/ml Total Protein (6.0-8.3) gm/dl Albumin (3.4-5.0) gm/dl Lipase (11-82) U/L TSH (0.300-4.500) uIu/ml Urine Color Urine Appearance (Clear) Urine pH (4.5-7.5) Ur Specific Mccleary (1.000-1.030) Urine Protein (Negative) Urine Glucose (UA) (Negative) Urine Ketones (Negative) Urine Blood (Negative) Urine Nitrite (Negative) Urine Bilirubin (Negative) Urine Urobilinogen (Negative) Ur Leukocyte Esterase (Negative) Urine WBC (Auto) (0-5) /hpf Urine RBC (Auto) (0-4) /hpf U Hyaline Cast (Auto) (0-5) /lpf U Epithel Cells (Auto) (0-5) /lpf Urine Bacteria (Auto) (Negative) Urine Test (Negative) Salicylates (3.0-30) mg/dl Urine Opiates Screen (Neg) Ur Methadone, Qual (Neg) Acetaminophen (10-30) ug/ml Urine Barbiturates (Neg) Carbamazepine (4-12) mcg/ml Ur Phencyclidine (PCP) (Neg) U Amphetamin/Meth Scrn (Neg) MDMA (Ecstasy) Screen (Neg) U Benzodiazepines Scrn (Neg) Ur Cocaine Metabolite (Neg) U Marijuana (THC) Screen (Neg) Ethyl Alcohol mg/dL (<10.0) mg/dl Lyme Disease IgG Ab (Negative) Lyme Disease IgM Ab (Negative) SARS-CoV-2, RNA, NAAT (NEGATIVE) 03/08/23 03/08/23 03/08/23 Range/Units 01:29 01:29 01:29 WBC (4.8-10.8) K/ul RBC (4.20-5.40) M/uL Hgb (12.0-16.0) g/dl Hct (37.0-47.0) % MCV (80.0-100.0) fL MCH (25.0-34.0) pg MCHC (32.0-36.0) g/dL RDW Std Deviation (36.4-46.3) fL RDW Coeff of Ellen (11.5-14.5) % Plt Count (130-400) K/uL MPV (9.4-12.4) fL Immature Gran % (Auto) % Neut % (Auto) % Lymph % (Auto) % Wolfe % (Auto) % Eos % (Auto) % Baso % (Auto) % Neut # (Auto) (1.40-6.50) K/uL Lymph # (Auto) (1.2-3.4) K/uL Wolfe # (Auto) (0.11-0.59) K/uL Eos # (Auto) (0-0.50) K/uL Baso # (Auto) (0-0.2) K/uL Immature Gran # (Auto) (0.01-0.20) K/uL PT (9.0-12.0) Seconds INR (0.9-1.1) Sodium (136-145) mmol/L Potassium (3.5-5.1) mmol/L Chloride (98-107) mmol/L Carbon Dioxide (21-32) mmol/L Anion Gap (3-11) BUN (6-23) mg/dl Creatinine (0.6-1.2) mg/dl Est Cr Clr Drug Dosing ml/min Est GFR ( Amer) ml/min Est GFR (Non-Af Amer) ml/min BUN/Creatinine Ratio (10-20) Glucose (70-99(Fasting)) mg/dl Calcium (8.6-10.3) mg/dl Magnesium (1.7-2.4) mg/dl Total Bilirubin (0.2-1.0) mg/dl Direct Bilirubin (0-0.2) mg/dl AST (13-39) U/L ALT (7-52) U/L Alkaline Phosphatase (34-104) U/L Ammonia (18-72) umol/L Troponin I High Sens (0-14) pg/ml Total Protein (6.0-8.3) gm/dl Albumin (3.4-5.0) gm/dl Lipase (11-82) U/L TSH (0.300-4.500) uIu/ml Urine Color Urine Appearance (Clear) Urine pH (4.5-7.5) Ur Specific Mccleary (1.000-1.030) Urine Protein (Negative) Urine Glucose (UA) (Negative) Urine Ketones (Negative) Urine Blood (Negative) Urine Nitrite (Negative) Urine Bilirubin (Negative) Urine Urobilinogen (Negative) Ur Leukocyte Esterase (Negative) Urine WBC (Auto) (0-5) /hpf Urine RBC (Auto) (0-4) /hpf U Hyaline Cast (Auto) (0-5) /lpf U Epithel Cells (Auto) (0-5) /lpf Urine Bacteria (Auto) (Negative) Urine Test (Negative) Salicylates < 3.0 L (3.0-30) mg/dl Urine Opiates Screen (Neg) Ur Methadone, Qual (Neg) Acetaminophen < 3 L (10-30) ug/ml Urine Barbiturates (Neg) Carbamazepine 12.7 H* (4-12) mcg/ml Ur Phencyclidine (PCP) (Neg) U Amphetamin/Meth Scrn (Neg) MDMA (Ecstasy) Screen (Neg) U Benzodiazepines Scrn (Neg) Ur Cocaine Metabolite (Neg) U Marijuana (THC) Screen (Neg) Ethyl Alcohol mg/dL < 10.0 (<10.0) mg/dl Lyme Disease IgG Ab (Negative) Lyme Disease IgM Ab (Negative) SARS-CoV-2, RNA, NAAT (NEGATIVE) 03/08/23 03/08/23 03/08/23 Range/Units 01:33 01:35 01:35 WBC (4.8-10.8) K/ul RBC (4.20-5.40) M/uL Hgb (12.0-16.0) g/dl Hct (37.0-47.0) % MCV (80.0-100.0) fL MCH (25.0-34.0) pg MCHC (32.0-36.0) g/dL RDW Std Deviation (36.4-46.3) fL RDW Coeff of Ellen (11.5-14.5) % Plt Count (130-400) K/uL MPV (9.4-12.4) fL Immature Gran % (Auto) % Neut % (Auto) % Lymph % (Auto) % Wolfe % (Auto) % Eos % (Auto) % Baso % (Auto) % Neut # (Auto) (1.40-6.50) K/uL Lymph # (Auto) (1.2-3.4) K/uL Wolfe # (Auto) (0.11-0.59) K/uL Eos # (Auto) (0-0.50) K/uL Baso # (Auto) (0-0.2) K/uL Immature Gran # (Auto) (0.01-0.20) K/uL PT (9.0-12.0) Seconds INR (0.9-1.1) Sodium 136 (136-145) mmol/L Potassium 3.3 L (3.5-5.1) mmol/L Chloride 103 (98-107) mmol/L Carbon Dioxide 23 (21-32) mmol/L Anion Gap 10 (3-11) BUN 26 H (6-23) mg/dl Creatinine 1.03 (0.6-1.2) mg/dl Est Cr Clr Drug Dosing 96.7 ml/min Est GFR ( Amer) 77.6 ml/min Est GFR (Non-Af Amer) 67.0 ml/min BUN/Creatinine Ratio 25.2 H (10-20) Glucose 115 H (70-99(Fasting)) mg/dl Calcium 9.4 (8.6-10.3) mg/dl Magnesium 2.2 (1.7-2.4) mg/dl Total Bilirubin 0.5 (0.2-1.0) mg/dl Direct Bilirubin 0.1 (0-0.2) mg/dl AST 32 (13-39) U/L ALT 61 H (7-52) U/L Alkaline Phosphatase 61 (34-104) U/L Ammonia (18-72) umol/L Troponin I High Sens 4.9 (0-14) pg/ml Total Protein 7.5 (6.0-8.3) gm/dl Albumin 4.5 (3.4-5.0) gm/dl Lipase 44 (11-82) U/L TSH 2.693 (0.300-4.500) uIu/ml Urine Color Urine Appearance (Clear) Urine pH (4.5-7.5) Ur Specific Mccleary (1.000-1.030) Urine Protein (Negative) Urine Glucose (UA) (Negative) Urine Ketones (Negative) Urine Blood (Negative) Urine Nitrite (Negative) Urine Bilirubin (Negative) Urine Urobilinogen (Negative) Ur Leukocyte Esterase (Negative) Urine WBC (Auto) (0-5) /hpf Urine RBC (Auto) (0-4) /hpf U Hyaline Cast (Auto) (0-5) /lpf U Epithel Cells (Auto) (0-5) /lpf Urine Bacteria (Auto) (Negative) Urine Test (Negative) Salicylates (3.0-30) mg/dl Urine Opiates Screen (Neg) Ur Methadone, Qual (Neg) Acetaminophen (10-30) ug/ml Urine Barbiturates (Neg) Carbamazepine (4-12) mcg/ml Ur Phencyclidine (PCP) (Neg) U Amphetamin/Meth Scrn (Neg) MDMA (Ecstasy) Screen (Neg) U Benzodiazepines Scrn (Neg) Ur Cocaine Metabolite (Neg) U Marijuana (THC) Screen (Neg) Ethyl Alcohol mg/dL (<10.0) mg/dl Lyme Disease IgG Ab Negative (Negative) Lyme Disease IgM Ab Negative (Negative) SARS-CoV-2, RNA, NAAT (NEGATIVE) 03/08/23 03/08/23 03/08/23 Range/Units 01:40 01:40 01:40 WBC (4.8-10.8) K/ul RBC (4.20-5.40) M/uL Hgb (12.0-16.0) g/dl Hct (37.0-47.0) % MCV (80.0-100.0) fL MCH (25.0-34.0) pg MCHC (32.0-36.0) g/dL RDW Std Deviation (36.4-46.3) fL RDW Coeff of Ellen (11.5-14.5) % Plt Count (130-400) K/uL MPV (9.4-12.4) fL Immature Gran % (Auto) % Neut % (Auto) % Lymph % (Auto) % Wolfe % (Auto) % Eos % (Auto) % Baso % (Auto) % Neut # (Auto) (1.40-6.50) K/uL Lymph # (Auto) (1.2-3.4) K/uL Wolfe # (Auto) (0.11-0.59) K/uL Eos # (Auto) (0-0.50) K/uL Baso # (Auto) (0-0.2) K/uL Immature Gran # (Auto) (0.01-0.20) K/uL PT (9.0-12.0) Seconds INR (0.9-1.1) Sodium (136-145) mmol/L Potassium (3.5-5.1) mmol/L Chloride (98-107) mmol/L Carbon Dioxide (21-32) mmol/L Anion Gap (3-11) BUN (6-23) mg/dl Creatinine (0.6-1.2) mg/dl Est Cr Clr Drug Dosing ml/min Est GFR ( Amer) ml/min Est GFR (Non-Af Amer) ml/min BUN/Creatinine Ratio (10-20) Glucose (70-99(Fasting)) mg/dl Calcium (8.6-10.3) mg/dl Magnesium (1.7-2.4) mg/dl Total Bilirubin (0.2-1.0) mg/dl Direct Bilirubin (0-0.2) mg/dl AST (13-39) U/L ALT (7-52) U/L Alkaline Phosphatase (34-104) U/L Ammonia (18-72) umol/L Troponin I High Sens (0-14) pg/ml Total Protein (6.0-8.3) gm/dl Albumin (3.4-5.0) gm/dl Lipase (11-82) U/L TSH (0.300-4.500) uIu/ml Urine Color Dark Yellow Urine Appearance Cloudy A (Clear) Urine pH 6.0 (4.5-7.5) Ur Specific Mccleary 1.027 (1.000-1.030) Urine Protein Negative (Negative) Urine Glucose (UA) Negative (Negative) Urine Ketones Trace H (Negative) Urine Blood Negative (Negative) Urine Nitrite Negative (Negative) Urine Bilirubin Negative (Negative) Urine Urobilinogen Negative (Negative) Ur Leukocyte Esterase Negative (Negative) Urine WBC (Auto) 1-5 (0-5) /hpf Urine RBC (Auto) 10-30 H (0-4) /hpf U Hyaline Cast (Auto) 5-10 H (0-5) /lpf U Epithel Cells (Auto) >30 H (0-5) /lpf Urine Bacteria (Auto) Negative (Negative) Urine Test Negative (Negative) Salicylates (3.0-30) mg/dl Urine Opiates Screen Neg (Neg) Ur Methadone, Qual Neg (Neg) Acetaminophen (10-30) ug/ml Urine Barbiturates Neg (Neg) Carbamazepine (4-12) mcg/ml Ur Phencyclidine (PCP) Neg (Neg) U Amphetamin/Meth Scrn Pos H (Neg) MDMA (Ecstasy) Screen Pos H (Neg) U Benzodiazepines Scrn Neg (Neg) Ur Cocaine Metabolite Neg (Neg) U Marijuana (THC) Screen Neg (Neg) Ethyl Alcohol mg/dL (<10.0) mg/dl Lyme Disease IgG Ab (Negative) Lyme Disease IgM Ab (Negative) SARS-CoV-2, RNA, NAAT (NEGATIVE) 03/08/23 Range/Units 02:27 WBC (4.8-10.8) K/ul RBC (4.20-5.40) M/uL Hgb (12.0-16.0) g/dl Hct (37.0-47.0) % MCV (80.0-100.0) fL MCH (25.0-34.0) pg MCHC (32.0-36.0) g/dL RDW Std Deviation (36.4-46.3) fL RDW Coeff of Ellen (11.5-14.5) % Plt Count (130-400) K/uL MPV (9.4-12.4) fL Immature Gran % (Auto) % Neut % (Auto) % Lymph % (Auto) % Wolfe % (Auto) % Eos % (Auto) % Baso % (Auto) % Neut # (Auto) (1.40-6.50) K/uL Lymph # (Auto) (1.2-3.4) K/uL Wolfe # (Auto) (0.11-0.59) K/uL Eos # (Auto) (0-0.50) K/uL Baso # (Auto) (0-0.2) K/uL Immature Gran # (Auto) (0.01-0.20) K/uL PT (9.0-12.0) Seconds INR (0.9-1.1) Sodium (136-145) mmol/L Potassium (3.5-5.1) mmol/L Chloride (98-107) mmol/L Carbon Dioxide (21-32) mmol/L Anion Gap (3-11) BUN (6-23) mg/dl Creatinine (0.6-1.2) mg/dl Est Cr Clr Drug Dosing ml/min Est GFR ( Amer) ml/min Est GFR (Non-Af Amer) ml/min BUN/Creatinine Ratio (10-20) Glucose (70-99(Fasting)) mg/dl Calcium (8.6-10.3) mg/dl Magnesium (1.7-2.4) mg/dl Total Bilirubin (0.2-1.0) mg/dl Direct Bilirubin (0-0.2) mg/dl AST (13-39) U/L ALT (7-52) U/L Alkaline Phosphatase (34-104) U/L Ammonia (18-72) umol/L Troponin I High Sens (0-14) pg/ml Total Protein (6.0-8.3) gm/dl Albumin (3.4-5.0) gm/dl Lipase (11-82) U/L TSH (0.300-4.500) uIu/ml Urine Color Urine Appearance (Clear) Urine pH (4.5-7.5) Ur Specific Mccleary (1.000-1.030) Urine Protein (Negative) Urine Glucose (UA) (Negative) Urine Ketones (Negative) Urine Blood (Negative) Urine Nitrite (Negative) Urine Bilirubin (Negative) Urine Urobilinogen (Negative) Ur Leukocyte Esterase (Negative) Urine WBC (Auto) (0-5) /hpf Urine RBC (Auto) (0-4) /hpf U Hyaline Cast (Auto) (0-5) /lpf U Epithel Cells (Auto) (0-5) /lpf Urine Bacteria (Auto) (Negative) Urine Test (Negative) Salicylates (3.0-30) mg/dl Urine Opiates Screen (Neg) Ur Methadone, Qual (Neg) Acetaminophen (10-30) ug/ml Urine Barbiturates (Neg) Carbamazepine (4-12) mcg/ml Ur Phencyclidine (PCP) (Neg) U Amphetamin/Meth Scrn (Neg) MDMA (Ecstasy) Screen (Neg) U Benzodiazepines Scrn (Neg) Ur Cocaine Metabolite (Neg) U Marijuana (THC) Screen (Neg) Ethyl Alcohol mg/dL (<10.0) mg/dl Lyme Disease IgG Ab (Negative) Lyme Disease IgM Ab (Negative) SARS-CoV-2, RNA, NAAT NEGATIVE (NEGATIVE) Administered Medications Discontinued Medications Gadobutrol (Gadobutrol 65ml Vial) 11 ml IV ONCE ONE Stop: 03/08/23 05:43 Last Admin: 03/08/23 05:42 Dose: 11 ml Documented By: PAULO Sodium Chloride (Nss 1000ml) 1,000 mls @ 999 mls/hr IV .Q1H1M ONE Stop: 03/08/23 03:25 Last Infusion: 03/08/23 03:41 Dose: 0 mls/hr Documented By: Admin: 03/08/23 02:31 Dose: 999 mls/hr Documented By: Thiamine HCl 100 mg/ Syringe 10 mls @ 2 mls/min IV NOW STA Stop: 03/08/23 02:55 Last Admin: 03/08/23 03:48 Dose: 2 mls/min Documented By: Potassium Chloride (Potassium Chloride Crtab 20 Meq Tabcr) 40 meq PO NOW STA Stop: 03/08/23 04:08 Last Admin: 03/08/23 05:13 Dose: 40 meq Documented By: Imaging Data Radiologist's Impression: Head CT 03/08/23 01:02 Exam(s): CT HEAD Without Contrast EXAM: CT Head Without Intravenous Contrast CLINICAL HISTORY: Reason for exam: confusion. TECHNIQUE: Axial computed tomography images of the head/brain without intravenous contrast. CTDI is 36.9 mGy and DLP is 625.8 mGy-cm. Automated exposure control was utilized for the study. A dose lowering technique was utilized adhering to the principles of ALARA. COMPARISON: Dated 05/20/22 FINDINGS: Brain: Unremarkable. No hemorrhage. No significant white matter disease. No edema. Ventricles: Unremarkable. No ventriculomegaly. Bones/joints: Unremarkable. No acute fracture. Soft tissues: Unremarkable. Sinuses: Unremarkable as visualized. No acute sinusitis. Mastoid air cells: Unremarkable as visualized. No mastoid effusion. IMPRESSION: Normal head/brain CT. Electronically signed by: Feliberto Conley MD 03/08/23 01:40 AM Discharge Plan Visit Data Chief Complaint: Illness Stated Complaint: FALL, LOW OXYGEN, SLURRED SPEECH ED Provider: Jean-Paul Espinoza Discharge Problem: Tegretol toxicity, Slurred speech, Ataxia Patient Disposition: Admitted As Inpatient Forms Stand Alone Forms: [facility] Prescriptions Prescriptions: No Action gabapentin 400 mg Capsule 400 mg PO TID Rx Instructions: Take in am, noon, hs meloxicam 7.5 mg tablet 7.5 - 15 mg PO QAM PRN (Reason: Pain) benztropine 0.5 mg tablet 0.5 mg PO QAM trazodone 50 mg tablet 50 - 100 mg PO HS ondansetron HCl 4 mg tablet 4 mg PO Q6H PRN (Reason: Nausea) amlodipine 10 mg tablet 10 mg PO QAM dextroamphetamine-amphetamine 20 mg tablet 30 mg PO QAM hydrochlorothiazide 12.5 mg capsule 12.5 mg PO QAM omeprazole 20 mg capsule,delayed release(DR/EC) 20 mg PO QAM lorazepam 1 mg tablet 1 mg PO HS PRN (Reason: SLEEP/ANXIETY) clomipramine 25 mg capsule 25 mg PO HS fluticasone propionate 50 mcg/actuation spray,suspension 2 spray INTRANASAL BID medroxyprogesterone 150 mg/mL suspension 150 mg IM .Q3MO Rexulti 1 mg tablet 1 mg PO QAM Hair,Skin and Nails Tablet 1 tab PO QAM milk thistle 175 mg Tablet 175 mg PO QAM Rx Instructions: give with meal/snack omega 4-evo-cjd-fish oil [Fish Oil] 1,000 mg (120 mg-180 mg) Capsule 1 cap PO QAM polyethylene glycol 3350 [Miralax] 17 gram/dose Powder 17 g PO QAM albuterol sulfate [Ventolin HFA] 90 mcg/actuation Hfa Aerosol Inhaler 2 inh INHALATION Q4H PRN (Reason: Wheezing/COLD SYMPTOMS) fluticasone furoate-vilanterol [Breo Ellipta] 200-25 mcg/dose Blister With Device 1 inh INHALATION QAM Citrucel 500 mg Tablet 500 mg PO BID cyclobenzaprine [Flexeril] 10 mg Tablet 10 mg PO TID PRN (Reason: MUSCLE SPASMS) acetic acid 2 % Solution 3 drp OTL TID Rx Instructions: apply to (cotton) wick; replace wick every 24 hours albuterol sulfate [Proventil] 2.5 mg /3 mL (0.083 %) Solution For Nebulization 2.5 mg INHALATION QID PRN (Reason: CONGESTION/COLD SYMPTOMS) naltrexone 50 mg Tablet 50 mg PO DAILY carbamazepine 400 mg tablet extended release 12 hr 800 mg PO QAM Rx Instructions: PER [facility], "PT TAKES 3-200 MG TABS DAILY". cyanocobalamin (vitamin B-12) [Vitamin B-12] 500 mcg Tablet 500 mcg PO DAILY propranolol 20 mg tablet 10 mg PO DIRECTED PRN (Reason: Anxiety) loratadine [Claritin] 10 mg Tablet 10 mg PO HS cholecalciferol (vitamin D3) [Vitamin D3] 25 mcg (1,000 unit) Capsule 25 mcg PO DAILY ferrous sulfate 27 mg iron Tablet 27 mg PO DAILY Align 4 mg Capsule 4 mg PO BID bimatoprost [Latisse] 0.03 % Drops With Applicator 1 applic TOPICAL HS PRN (Reason: AFFECTED AREA NEEDED) Women's One Daily 18 mg iron-400 mcg-500 mg Ca Tablet 1 tab PO QAM Linzess 145 mcg Capsule 145 mcg PO DAILYBB magnesium oxide 200 mg magnesium Tablet 200 mg PO DAILY turmeric root extract 500 mg Tablet 500 mg PO DAILY Referrals Referrals: Stacia Arreola MD [Primary Care Provider] - Tegretol toxicity Qualifiers: Encounter type: initial encounter Injury intent: accidental or unintentional Qualified Code(s): T42.1X1A - Poisoning by iminostilbenes, accidental (unintentional), initial encounter
--- NOTE | 2023-03-08 01:41 | CT Scan Report ---
Exam(s): CT HEAD Without Contrast EXAM: CT Head Without Intravenous Contrast CLINICAL HISTORY: Reason for exam: confusion. TECHNIQUE: Axial computed tomography images of the head/brain without intravenous contrast. CTDI is 36.9 mGy and DLP is 625.8 mGy-cm. Automated exposure control was utilized for the study. A dose lowering technique was utilized adhering to the principles of ALARA. COMPARISON: Dated 05/20/22 FINDINGS: Brain: Unremarkable. No hemorrhage. No significant white matter disease. No edema. Ventricles: Unremarkable. No ventriculomegaly. Bones/joints: Unremarkable. No acute fracture. Soft tissues: Unremarkable. Sinuses: Unremarkable as visualized. No acute sinusitis. Mastoid air cells: Unremarkable as visualized. No mastoid effusion. IMPRESSION: Normal head/brain CT. Electronically signed by: Feliberto Conley MD 03/08/23 01:40 AM
[2023-03-08 01:47] LABS: Basophils # (auto) 0.06 K/uL (0-0.2); Basophils % (auto) 0.8 %; Eosinophils # (auto) 0.29 K/uL (0-0.50); Hemoglobin 14.5 g/dl (12.0-16.0); Immature Granulocytes # (auto) 0.03 K/uL (0.01-0.20); Immature Granulocytes % (auto) 0.4 %; Lymphocytes # (auto) 1.99 K/uL (1.2-3.4); Lymphocytes % (auto) 27.3 %; Mean Corpuscular Hemoglobin 31.8 pg (25.0-34.0); Mean Corpuscular Hgb Conc 35.4 g/dL (32.0-36.0); Mean Corpuscular Volume 89.9 fL (80.0-100.0); Mean Platelet Volume 9.4 fL (9.4-12.4); Monocytes # (auto) 0.55 K/uL (0.11-0.59); Monocytes % (auto) 7.5 %; Neutrophils # (auto) 4.38 K/uL (1.40-6.50); Platelet Count 250 K/uL (130-400); RDW Coefficient of Variation 13.2 % (11.5-14.5); RDW Standard Deviation 43.8 fL (36.4-46.3); Red Blood Count 4.56 M/uL (4.20-5.40)
[2023-03-08 01:57] LABS: Pregnancy Test, Urine Negative (Negative)
[2023-03-08 01:58] LABS: Appearance Urine Cloudy (Clear); Bacteria Urine Automated Negative (Negative); Bilirubin Urine Negative (Negative); Blood Urine Negative (Negative); Color Urine Dark Yellow; Epithelial Cell Urine Auto >30 /lpf (0-5); Glucose Urine UA Negative (Negative); Ketones Urine Trace (Negative); Leukocyte Esterase Urine Negative (Negative); Nitrite Urine Negative (Negative); Protein Urine Negative (Negative); Specific Gravity Urine 1.027 (1.000-1.030); Urobilinogen Urine Negative (Negative)
[2023-03-08 02:05] LABS: Albumin Level 4.5 gm/dl (3.4-5.0); BUN Creatinine Ratio 25.2 (10-20); Bilirubin Direct 0.1 mg/dl (0-0.2); Bilirubin,Total 0.5 mg/dl (0.2-1.0); Calcium 9.4 mg/dl (8.6-10.3); Creatinine Clr Calc Pharmacy 96.7 ml/min; Est GFR (African American) 77.6 ml/min; Magnesium 2.2 mg/dl (1.7-2.4); Potassium 3.3 mmol/L (3.5-5.1); Total Protein 7.5 gm/dl (6.0-8.3)
[2023-03-08 02:10] LABS: Troponin I High Sensitivity 4.9 pg/ml (0-14)
[2023-03-08 02:13] LABS: Prothrombin Time 10.9 Seconds (9.0-12.0)
[2023-03-08] MEDS ORDERED: SODIUM CHLORIDE 0.9% 1000ML 1,000 ML IV ONE (02:25)
[2023-03-08 02:31] LABS: Amphetamines+Metham, Urine Pos (Neg); Barbiturates, Urine Neg (Neg); Benzodiazepine, Urine Neg (Neg); Cocaine, Urine Neg (Neg); MDMA (Ecstacy), Urine Pos (Neg); Methadone, Urine Neg (Neg); Opiate, Urine Neg (Neg); Phencyclidine, Urine Neg (Neg)
[2023-03-08 02:41] LABS: Acetaminophen < 3 ug/ml (10-30); Salicylate < 3.0 mg/dl (3.0-30)
[2023-03-08] MEDS ORDERED: THIAMINE HCL 100 MG in SYRINGE 9 ML IV STA (02:51)
[2023-03-08 03:21] LABS: Lyme Ab IgG w/WB Rflx Negative (Negative); Lyme Ab IgM w/WB Rflx Negative (Negative)
--- NOTE | 2023-03-08 03:28 | History & Physical Report ---
Date of Service March 08, 2023 Assessment & Plan (1) Slurred speech: Plan: With gait imbalance rule out CVA given patient risk factors Slightly supratherapeutic carbamazepine level Viral respiratory tract infection Shortness of breath with transient hypoxemia at home rule out PE Right-sided abdominal pain etiology to be determined hypertension, BP on the lower side bronchial asthma, stable anxiety/mood disorder, at baseline hx fibromyalgia/migraine chronic back pain status post surgery IBS constipation predominant Hyperglycemia rule out DM Hypokalemia secondary to home diuretic Rx past tobacco/alcohol abuse OBS Medical telemetry Neurochecks Aspirin for stroke prevention for now Hold BP meds for now given normotension until CVA ruled out Brain MRI, TTE, carotid Dopplers for stroke work-up Hold carbamazepine for now, recheck level in a.m. Neurology consult Re: Slurred speech CT chest PE study CT abdomen and pelvis Re: Right-sided abdominal pain Replace potassium, hold home diuretic for now until patient euvolemic Check hemoglobin A1c DVT prophylaxis. Blue Medoranox subcu Full code Text document was generated using [employer] voice recognition software. It may contain grammatical or spelling errors. Kindly contact undersigned for clarification of any documentation item in question. History of Present Illness Chief Complaint: Weakness, slurred speech, imbalance Primary Care Provider: Stacia Arreola MD History obtained from patient and records. Medical history significant for hypertension, bronchial asthma, anxiety/mood disorder, fibromyalgia, migraine, chronic back pain status post surgery IBS constipation predominant, past tobacco/alcohol abuse. Last confinement May 2022 for ambulatory dysfunction and falls in the setting of alcohol abuse. MRI showed asymmetric thickening of the left dura/extra-axial space. Concern for alcoholic cerebellar degeneration as per Neurology. Symptoms eventually improved as per patient. Last week, patient noted worsening generalized weakness, gait imbalance, headache, bilateral ear pain/fullness without discharge, sore throat, tingling numbness all over. O2 sats 80s on home pulse ox, heart rate 110s as per patient. Some shortness of breath without chest pain. Transient right-sided abdominal pain. No cough symptoms. No known sick contacts. Patient completed COVID-19 vaccination. Patient has concerns about possible refrigerant poisoning at home. Yesterday, patient noted to have slurred speech. Increased difficulty in ambulation noted. No recent changes in home medications. Denies recent EtOH intake. Patient brought to the ER for evaluation for worsening symptoms. Medical History as above Surgical History : Back surgery, cholecystectomy, Family History : Breast cancer, DM, heart disease, RA Personal/Social history : Past tobacco/alcohol abuse, disabled Allergies Allergy/AdvReac Type Severity Reaction Status Date / Time Sulfa (Sulfonamide Allergy Severe anaphylaxis Verified 03/08/23 01:36 Antibiotics) Home Medications Medication Instructions Recorded Confirmed Type gabapentin 400 mg capsule 400 mg PO TID 06/18/20 03/08/23 History amlodipine 10 mg tablet 10 mg PO QAM 03/20/22 03/08/23 History benztropine 0.5 mg tablet 0.5 mg PO QAM 03/20/22 03/08/23 History brexpiprazole 1 mg tablet (Rexulti) 1 mg PO QAM 03/20/22 03/08/23 History clomipramine 25 mg capsule 25 mg PO HS 03/20/22 03/08/23 History dextroamphetamine-amphetamine 20 30 mg PO QAM 03/20/22 03/08/23 History mg tablet fluticasone propionate 50 2 spray intranasal BID 03/20/22 03/08/23 History mcg/actuation nasal spray,suspension hydrochlorothiazide 12.5 mg capsule 12.5 mg PO QAM 03/20/22 03/08/23 History lorazepam 1 mg tablet 1 mg PO HS PRN SLEEP/ANXIETY 03/20/22 03/08/23 History medroxyprogesterone 150 mg/mL 150 mg IM .Q3MO 03/20/22 03/08/23 History intramuscular suspension meloxicam 7.5 mg tablet 7.5 - 15 mg PO QAM PRN Pain 03/20/22 03/08/23 History multivitamin with minerals 1 tab PO QAM 03/20/22 03/08/23 History (Hair,Skin and Nails tablet) omeprazole 20 mg capsule,delayed 20 mg PO QAM 03/20/22 03/08/23 History release ondansetron HCl 4 mg tablet 4 mg PO Q6H PRN Nausea 03/20/22 03/08/23 History trazodone 50 mg tablet 50 - 100 mg PO HS 03/20/22 03/08/23 History milk thistle 175 mg tablet 175 mg PO QAM 05/19/22 03/08/23 History omega 6-gln-rnz-fish oil 1,000 mg 1 cap PO QAM 05/19/22 03/08/23 History (120 mg-180 mg) capsule (Fish Oil) albuterol sulfate 90 mcg/actuation 2 inh inhalation Q4H PRN 06/18/22 03/08/23 History aerosol inhaler (Ventolin HFA) Wheezing/COLD SYMPTOMS fluticasone furoate 200 1 inh inhalation QAM 06/18/22 03/08/23 History mcg-vilanterol 25 mcg/dose inhalation powder (Breo Ellipta) methylcellulose (laxative) 500 mg 500 mg PO BID 06/18/22 03/08/23 History tablet (Citrucel) polyethylene glycol 3350 17 17 g PO QAM 06/18/22 03/08/23 History gram/dose oral powder (Miralax) Bifidobacterium infantis 4 mg 4 mg PO BID 03/08/23 03/08/23 History capsule (Align) acetic acid 2 % ear solution 3 drp OTL TID 03/08/23 03/08/23 History albuterol sulfate 2.5 mg/3 mL 2.5 mg inhalation QID PRN 03/08/23 03/08/23 History (0.083 %) solution for nebulization CONGESTION/COLD SYMPTOMS bimatoprost 0.03 % drops with 1 applic topical HS PRN AFFECTED 03/08/23 03/08/23 History applicator, eyelash base (Latisse) AREA NEEDED carbamazepine 400 mg 800 mg PO QAM 03/08/23 03/08/23 History tablet,extended release,12 hr cholecalciferol (vitamin D3) 25 25 mcg PO DAILY 03/08/23 03/08/23 History mcg (1,000 unit) capsule (Vitamin D3) cyanocobalamin (vitamin B-12) 500 500 mcg PO DAILY 03/08/23 03/08/23 History mcg tablet (Vitamin B-12) cyclobenzaprine 10 mg tablet 10 mg PO TID PRN MUSCLE SPASMS 03/08/23 03/08/23 History ferrous sulfate 27 mg iron tablet 27 mg PO DAILY 03/08/23 03/08/23 History linaclotide 145 mcg capsule 145 mcg PO DAILYBB 03/08/23 03/08/23 History (Linzess) loratadine 10 mg tablet (Claritin) 10 mg PO HS 03/08/23 03/08/23 History magnesium oxide 200 mg PO DAILY 03/08/23 03/08/23 History multivit-iron 18 mg-folic acid 400 1 tab PO QAM 03/08/23 03/08/23 History mcg-calcium 500 mg-minerals tablet (Women's One Daily) naltrexone 50 mg tablet 50 mg PO DAILY 03/08/23 03/08/23 History propranolol 20 mg tablet 10 mg PO DIRECTED PRN Anxiety 03/08/23 03/08/23 History turmeric root extract 500 mg tablet 500 mg PO DAILY 03/08/23 03/08/23 History Past Med/Surg History Medical History Abnormal brain MRI Alcohol withdrawal pt denies Alcohol withdrawal Alcoholic cerebellar degeneration Anxiety and depression Asthma "EPISODIC ASTHMA" NO INHALER Attention deficit disorder (ADD) Bilateral lumbar radiculopathy Bipolar disorder Chronic alcohol abuse pt denies Degenerative disc disease Fall Fibromyalgia GERD (gastroesophageal reflux disease) Hx of migraines Insulin resistance Post traumatic stress disorder Spinal stenosis Transaminitis Weakness Surgical History History of cholecystectomy History of discectomy LUMBAR (X 3) History of esophagogastroduodenoscopy (EGD) History of spinal fusion LUMBAR [place] teeth removed Family History (Updated 06/18/22 @ 14:36 by Vera Wagner RN) Mother Diabetes Social History Smoking Status: Current some day smoker Tobacco Type: E-cigarettes / Vaping Second Hand Exposure: No; Do You Dip or Chew Tobacco: No; Tobacco Cessation Education Requested by Patient: No Hx Alcohol Use: No Hx Substance Use: No Preferred Language: Honduran Communication Ability: Effective Lead Generation Representative Required: No Beliefs That Will Affect Care: None marital status: Single Current Living Situation: Parent Current Living Situation Comment: roomate current occupational status: unemployed and disabled Other Information That Helps Us Care for You: No Feels Safe at Home: Yes Safety Concerns: Feels Safe At This Time Assistive Devices: None Review of Systems Review of Systems: As per HPI, all other systems reviewed and negative Physical Exam Physical Exam: GENERAL: Slightly uncomfortable, slightly anxious, obese, dysarthria, looks older than stated age, no respiratory distress SKIN: Normal color, warm HEENT: [place] palpebral conjunctivae, no ptosis, dry buccal mucosa NECK : Supple, short neck, no tenderness CHEST : Decreased breath sounds, no tenderness HEART : RRR, no obvious murmurs ABDOMEN: Some distention, minimal right-sided abdominal tenderness EXTREMITIES : No LE swelling/tenderness, no other conspicuous deformities noted NEUROLOGIC : Coherent, no facial asymmetry, mild dysarthria, gait and stance not assessed Results & Data Results & Data Vital Signs (Past 12 Hours) Vital Signs Temp Pulse Pulse Resp BP BP Pulse Ox 03/08/23 01:03 92 H 03/08/23 01:45 88 16 105/74 96 03/08/23 00:45 36.5 C 106 H 20 156/79 H 100 O2 Del Method 03/08/23 01:03 03/08/23 01:45 Room Air 03/08/23 00:45 Room Air Laboratory Results Laboratory Results WBC 7.30 K/ul (4.8-10.8) 03/08/23 01:29 RBC 4.56 M/uL (4.20-5.40) 03/08/23 01:29 Hgb 14.5 g/dl (12.0-16.0) 03/08/23 01:29 Hct 41.0 % (37.0-47.0) 03/08/23 01:29 MCV 89.9 fL (80.0-100.0) 03/08/23 01:29 MCH 31.8 pg (25.0-34.0) 03/08/23 01:29 MCHC 35.4 g/dL (32.0-36.0) 03/08/23 01:29 RDW Std Deviation 43.8 fL (36.4-46.3) 03/08/23 01:29 RDW Coeff of Ellen 13.2 % (11.5-14.5) 03/08/23 01:29 Plt Count 250 K/uL (130-400) 03/08/23 01:29 MPV 9.4 fL (9.4-12.4) 03/08/23 01:29 Immature Gran % (Auto) 0.4 % 03/08/23 01: Neut % (Auto) 60.0 % 03/08/23 01:29 Lymph % (Auto) 27.3 % 03/08/23 01:29 [place] % (Auto) 7.5 % 03/08/23 01: Eos % (Auto) 4.0 % 03/08/23 01: Baso % (Auto) 0.8 % 03/08/23 01: Neut # (Auto) 4.38 K/uL (1.40-6.50) 03/08/23 01: Lymph # (Auto) 1.99 K/uL (1.2-3.4) 03/08/23 01: [place] # (Auto) 0.55 K/uL (0.11-0.59) 03/08/23 01: Eos # (Auto) 0.29 K/uL (0-0.50) 03/08/23: Baso # (Auto) 0.06 K/uL (0-0.2) 03/08/23 01: Immature Gran # (Auto) 0.03 K/uL (0.01-0.20) 03/08/23 01: PT 10.9 Seconds (9.0-12.0) 03/08/23 01: INR 1.0 (0.9-1.1) 03/08/23 01:29 Sodium 136 mmol/L (136-145) 03/08/23 01:33 Potassium 3.3 mmol/L (3.5-5.1) L 03/08/23 01:33 Chloride 103 mmol/L (98-107) 03/08/23 01:33 Carbon Dioxide 23 mmol/L (21-32) 03/08/23 01:33 Anion Gap 10 (3-11) 03/08/23 01:33 BUN 26 mg/dl (6-23) H 03/08/23 01:33 Creatinine 1.03 mg/dl (0.6-1.2) 03/08/23 01:33 Est Cr Clr Drug Dosing 96.7 ml/min 03/08/23 01:33 Est GFR ( Amer) 77.6 ml/min 03/08/23 01:33 Est GFR (Non-Af Amer) 67.0 ml/min 03/08/23 01:33 BUN/Creatinine Ratio 25.2 (10-20) H 03/08/23 01:33 Glucose 115 mg/dl (70-99(Fasting)) H 03/08/23 01:33 Calcium 9.4 mg/dl (8.6-10.3) 03/08/23 01:33 Magnesium 2.2 mg/dl (1.7-2.4) 03/08/23 01:33 Total Bilirubin 0.5 mg/dl (0.2-1.0) 03/08/23 01:33 Direct Bilirubin 0.1 mg/dl (0-0.2) 03/08/23 01:33 AST 32 U/L (13-39) 03/08/23 01:33 ALT 61 U/L (7-52) H 03/08/23 01:33 Alkaline Phosphatase 61 U/L (34-104) 03/08/23 01:33 Ammonia 33.0 umol/L (18-72) 03/08/23 01:29 Troponin I High Sens 4.9 pg/ml (0-14) 03/08/23 01:33 Total Protein 7.5 gm/dl (6.0-8.3) 03/08/23 01:33 Albumin 4.5 gm/dl (3.4-5.0) 03/08/23 01:33 Lipase 44 U/L (11-82) 03/08/23 01:33 TSH 2.693 uIu/ml (0.300-4.500) 03/08/23 01:35 Urine Color Dark Yellow 03/08/23 01:40 Urine Appearance Cloudy (Clear) A 03/08/23 01:40 Urine pH 6.0 (4.5-7.5) 03/08/23 01:40 Ur Specific [place] 1.027 (1.000-1.030) 03/08/23 01:40 Urine Protein Negative (Negative) 03/08/23 01:40 Urine Glucose (UA) Negative (Negative) 03/08/23 01:40 Urine Ketones Trace (Negative) H 03/08/23 01:40 Urine Blood Negative (Negative) 03/08/23 01:40 Urine Nitrite Negative (Negative) 03/08/23 01:40 Urine Bilirubin Negative (Negative) 03/08/23 01:40 Urine Urobilinogen Negative (Negative) 03/08/23 01:40 Ur Leukocyte Esterase Negative (Negative) 03/08/23 01:40 Urine WBC (Auto) 1-5 /hpf (0-5) 03/08/23 01:40 Urine RBC (Auto) 10-30 /hpf (0-4) H 03/08/23 01:40 U Hyaline Cast (Auto) 5-10 /lpf (0-5) H 03/08/23 01:40 U Epithel Cells (Auto) >30 /lpf (0-5) H 03/08/23 01:40 Urine Bacteria (Auto) Negative (Negative) 03/08/23 01:40 Urine Test Negative (Negative) 03/08/23 01:40 Salicylates < 3.0 mg/dl (3.0-30) L 03/08/23 01:29 Urine Opiates Screen Neg (Neg) 03/08/23 01:40 Ur Methadone, Qual Neg (Neg) 03/08/23 01:40 Acetaminophen < 3 ug/ml (10-30) L 03/08/23 01:29 Urine Barbiturates Neg (Neg) 03/08/23 01:40 Carbamazepine 12.7 mcg/ml (4-12) H* 03/08/23 01:29 Ur Phencyclidine (PCP) Neg (Neg) 03/08/23 01:40 U Amphetamin/Meth Scrn Pos (Neg) H 03/08/23 01:40 MDMA (Ecstasy) Screen Pos (Neg) H 03/08/23 01:40 U Benzodiazepines Scrn Neg (Neg) 03/08/23 01:40 Ur Cocaine Metabolite Neg (Neg) 03/08/23 01:40 U Marijuana (THC) Screen Neg (Neg) 03/08/23 01:40 Ethyl Alcohol mg/dL < 10.0 mg/dl (<10.0) 03/08/23 01:29 Lyme Disease IgG Ab Negative (Negative) 03/08/23 01:35 Lyme Disease IgM Ab Negative (Negative) 03/08/23 01:35 SARS-CoV-2, RNA, NAAT NEGATIVE (NEGATIVE) 03/08/23 02:[address] 03/08/23 01:02 Exam(s): CT HEAD Without Contrast EXAM: CT Head Without Intravenous Contrast CLINICAL HISTORY: Reason for exam: confusion. TECHNIQUE: Axial computed tomography images of the head/brain without intravenous contrast. CTDI is 36.9 mGy and DLP is 625.8 mGy-cm. Automated exposure control was utilized for the study. A dose lowering technique was utilized adhering to the principles of ALARA. COMPARISON: Dated 05/20/22 FINDINGS: Brain: Unremarkable. No hemorrhage. No significant white matter disease. No edema. Ventricles: Unremarkable. No ventriculomegaly. Bones/joints: Unremarkable. No acute fracture. Soft tissues: Unremarkable. Sinuses: Unremarkable as visualized. No acute sinusitis. Mastoid air cells: Unremarkable as visualized. No mastoid effusion. IMPRESSION: Normal head/brain CT. Electronically signed by: Feliberto Conley MD 03/08/23 01:40 AM Diagnostic Findings Chest x-ray as per my interpretation no congestion EKG as per my interpretation : Rate 100, NSR, normal axis, short TX, no ischemia
[2023-03-08] MEDS ORDERED: NSS + 20MEQ KCL 20 MEQ/1,000 ML BAG IV ONE (03:30)
[2023-03-08] MEDS ORDERED: PROMETHAZINE HCL 12.5 MG in SODIUM CHLORIDE 0.9% 50 ML IV PRN (03:38)
[2023-03-08] MEDS ORDERED: POTASSIUM CHLORIDE CRTAB 20 MEQ TABCR PO STA (04:07)
[2023-03-08] MEDS ORDERED: GADOBUTROL 65ML VIAL IV ONE (05:42)
[2023-03-08] MEDS ORDERED: ASPIRIN 81 MG CHEW PO STA (05:53)
[2023-03-08] MEDS ORDERED: CYCLOBENZAPRINE HCL 10 MG TAB PO PRN (06:11)
[2023-03-08] MEDS ORDERED: ACETAMINOPHEN 325 MG TAB PO PRN (06:11)
[2023-03-08] MEDS ORDERED: LORazepam 1 MG TAB PO PRN (06:11)
[2023-03-08] MEDS ORDERED: LINACLOTIDE 145 MCG CAPSULE PO SCH (06:30)
--- NOTE | 2023-03-08 06:40 | Magnetic Resonance Report ---
MRI OF THE BRAIN WITHOUT AND WITH IV CONTRAST CLINICAL HISTORY: Headache. Slurred speech. COMPARISON STUDY: MRI of the brain May 19, 2022. Head CT performed earlier today. TECHNIQUE: Utilizing a 1.5 Maame magnet and dedicated coil, multiplanar, multiecho imaging of the br ain was performed pre and postcontrast administration. IV administration of 11 mL of Gadavist contra st was uneventful. FINDINGS: Several pulsing sequences are moderately compromised by motion artifact. There are no foci of restricted diffusion to suggest acute infarct. No acute intracranial hemorrhage, midline shift or mass effect is present. Ventricular system is normal. Basal cisterns are patent. There are no extra-a xial collections. Flow-voids for the major intracranial vessels are present. There is no intracranial mass or pathologic enhancement. No definite parenchymal signal abnormality is present. Calvarial sig nal is within normal limits. There is minimal ethmoid sinus mucosal thickening. IMPRESSION: 1. No acute intracranial findings. 2. Exam compromised by motion artifact. ACT 112: Negative or not required by law. Electronically signed by: Pedro Rodriguez M.D. 03/08/2023 6:38 AM
--- NOTE | 2023-03-08 07:07 | XRay Report ---
XR chest 1V portable CLINICAL HISTORY: low o2. COMPARISON STUDY: Chest radiograph September 22, 2019. FINDINGS: Lung volumes are normal. Lungs are clear. There is no pneumothorax or pleural effusion. Car diac size is normal. Mediastinal contours are normal. There is no evidence for pulmonary edema. IMPRESSION: No acute cardiopulmonary findings. ACT 112: Negative or not required by law. Electronically signed by: Pedro Rodriguez M.D. 03/08/2023 7:06 AM
--- NOTE | 2023-03-08 07:15 | Ultrasound Report ---
CAROTID ARTERY ULTRASOUND CLINICAL HISTORY: slurred speech COMPARISON STUDY: None. TECHNIQUE: Real-time, grayscale, and color Doppler sonography of the carotid and vertebral arteries w as performed. Images were viewed in the transverse and longitudinal planes. FINDINGS: This exam was compromised given motion during the study. No significant atherosclerotic plaque is not ed. Velocity measurements are listed below. COMMON CAROTID PEAK SYSTOLIC VELOCITY (CM/S): RIGHT 100 LEFT 124 ICA PEAK SYSTOLIC VELOCITY (CM/S): RIGHT 101 LEFT 65 Systolic ratios between the internal to common carotid arteries were normal. Antegrade flow is seen in the vertebral arteries. The external carotid arteries are patent. IMPRESSION: Exam mildly compromised. No evidence for a hemodynamically significant stenosis stenosis . ACT 112: Negative or not required by law. Electronically signed by: Pedro Rodriguez M.D. 03/08/2023 7:12 AM
[2023-03-08 08:14] LABS: Basophils # (auto) 0.05 K/uL (0-0.2); Basophils % (auto) 0.8 %; Eosinophils # (auto) 0.24 K/uL (0-0.50); Eosinophils % (auto) 3.8 %; Hematocrit (blood only) 38.1 % (37.0-47.0); Hemoglobin 12.7 g/dl (12.0-16.0); Immature Granulocytes # (auto) 0.02 K/uL (0.01-0.20); Immature Granulocytes % (auto) 0.3 %; Lymphocytes # (auto) 2.13 K/uL (1.2-3.4); Lymphocytes % (auto) 34.1 %; Mean Corpuscular Hemoglobin 31.1 pg (25.0-34.0); Mean Corpuscular Hgb Conc 33.3 g/dL (32.0-36.0); Mean Corpuscular Volume 93.4 fL (80.0-100.0); Mean Platelet Volume 9.2 fL (9.4-12.4); Monocytes # (auto) 0.53 K/uL (0.11-0.59); Monocytes % (auto) 8.5 %; Neutrophils # (auto) 3.27 K/uL (1.40-6.50); Neutrophils % (auto) 52.5 %; Platelet Count 211 K/uL (130-400); RDW Coefficient of Variation 13.3 % (11.5-14.5); RDW Standard Deviation 45.4 fL (36.4-46.3); Red Blood Count 4.08 M/uL (4.20-5.40); White Blood Count 6.24 K/ul (4.8-10.8)
[2023-03-08 08:21] LABS: BUN Creatinine Ratio 25.6 (10-20); Calcium 8.5 mg/dl (8.6-10.3); Chol HDL Ratio 3.8 (0-5); Creatinine Clr Calc Pharmacy 122.4 ml/min; Est GFR (African American) 108.7 ml/min; Est GFR (Non-African American) 93.8 ml/min; Potassium 3.9 mmol/L (3.5-5.1)
[2023-03-08 08:52] LABS: Estimated Average Glucose 117 mg/dl; Hemoglobin A1C 5.7 % (4.5-5.6)
--- NOTE | 2023-03-08 08:56 | Neurology Consultation ---
Date of Consultation March 08, 2023 Assessment & Plan (1) Slurred speech: Resolved slurred speech. No evidence of acute neurologic disease process. Mildly elevated carbamazepine level of uncertain clinical significance. Patient does not have a history of epilepsy, she is prescribed carbamazepine for mood stabilization, along with several other medications for management of bipolar disorder. Furthermore, I do not find any evidence of alcohol related cerebellar degeneration, alcohol related encephalopathy, or alcohol withdrawal. Her MRI is negative for stroke, hemorrhage, demyelinating disease, or other significant neurological disease process. I do not have any specific recommendations from a neurological standpoint for testing or management in this patient at this time. Continue current medical evaluation and management. Please contact me if you have any further questions regarding this neurological assessment. History of Present Illness Reason for Consultation: slurred speech Requesting Physician: Dr. Hines Attending Physician: Wilfredo Antony MD History of Present Illness The patient is a 42-year-old female who is known to me from a previous admission to the [facility] in May 2022 in the context of persistent gait dysfunction, poor balance, tendency for falls related to a history of chronic alcoholism. A brain MRI at that time had revealed some nonspecific dural thickening and enhancement and was otherwise unremarkable. She presented to the emergency department overnight with slurred speech, paresthesias, and somnolence. She had an unremarkable neurological examination at that time and had a normal CT of the head. A follow-up brain MRI was completed which was unremarkable as well, no evidence of acute process. I did independently review the images. No evidence of stroke, hemorrhage, hydrocephalus, atrophy, or abnormal postcontrast enhancement. She had a carotid duplex completed as well, no abnormality seen. She has been afebrile. A CBC and comprehensive metabolic panel are unremarkable. A carbamazepine level was 12.7. A urine toxicology screen was positive for amphetamine and MDMA although she does have a prescription for Adderall as well as several other psychiatric medications. An electrocardiogram revealed a sinus rhythm. She complains of feeling ill when lying in bed, but with improvement with activities such as standing up, walking, going outside for fresh air. She denies headache, vision disturbance, vertigo, or focal weakness. She does not exhibit any slurred speech at this time. Allergies Allergy/AdvReac Type Severity Reaction Status Date / Time Sulfa (Sulfonamide Allergy Severe anaphylaxis Verified 03/08/23 01:36 Antibiotics) Home Medications Medication Instructions Recorded Confirmed Type gabapentin 400 mg capsule 400 mg PO TID 06/18/20 03/08/23 History amlodipine 10 mg tablet 10 mg PO QAM 03/20/22 03/08/23 History benztropine 0.5 mg tablet 0.5 mg PO QAM 03/20/22 03/08/23 History brexpiprazole 1 mg tablet (Rexulti) 1 mg PO QAM 03/20/22 03/08/23 History clomipramine 25 mg capsule 25 mg PO HS 03/20/22 03/08/23 History dextroamphetamine-amphetamine 20 30 mg PO QAM 03/20/22 03/08/23 History mg tablet fluticasone propionate 50 2 spray intranasal BID 03/20/22 03/08/23 History mcg/actuation nasal spray,suspension hydrochlorothiazide 12.5 mg capsule 12.5 mg PO QAM 03/20/22 03/08/23 History lorazepam 1 mg tablet 1 mg PO HS PRN SLEEP/ANXIETY 03/20/22 03/08/23 History medroxyprogesterone 150 mg/mL 150 mg IM .Q3MO 03/20/22 03/08/23 History intramuscular suspension meloxicam 7.5 mg tablet 7.5 - 15 mg PO QAM PRN Pain 03/20/22 03/08/23 History multivitamin with minerals 1 tab PO QAM 03/20/22 03/08/23 History (Hair,Skin and Nails tablet) omeprazole 20 mg capsule,delayed 20 mg PO QAM 03/20/22 03/08/23 History release ondansetron HCl 4 mg tablet 4 mg PO Q6H PRN Nausea 03/20/22 03/08/23 History trazodone 50 mg tablet 50 - 100 mg PO HS 03/20/22 03/08/23 History milk thistle 175 mg tablet 175 mg PO QAM 05/19/22 03/08/23 History omega 3-dyn-kgi-fish oil 1,000 mg 1 cap PO QAM 05/19/22 03/08/23 History (120 mg-180 mg) capsule (Fish Oil) albuterol sulfate 90 mcg/actuation 2 inh inhalation Q4H PRN 06/18/22 03/08/23 History aerosol inhaler (Ventolin HFA) Wheezing/COLD SYMPTOMS fluticasone furoate 200 1 inh inhalation QAM 06/18/22 03/08/23 History mcg-vilanterol 25 mcg/dose inhalation powder (Breo Ellipta) methylcellulose (laxative) 500 mg 500 mg PO BID 06/18/22 03/08/23 History tablet (Citrucel) polyethylene glycol 3350 17 17 g PO QAM 06/18/22 03/08/23 History gram/dose oral powder (Miralax) Bifidobacterium infantis 4 mg 4 mg PO BID 03/08/23 03/08/23 History capsule (Align) acetic acid 2 % ear solution 3 drp OTL TID 03/08/23 03/08/23 History albuterol sulfate 2.5 mg/3 mL 2.5 mg inhalation QID PRN 03/08/23 03/08/23 History (0.083 %) solution for nebulization CONGESTION/COLD SYMPTOMS bimatoprost 0.03 % drops with 1 applic topical HS PRN AFFECTED 03/08/23 03/08/23 History applicator, eyelash base (Latisse) AREA NEEDED carbamazepine 400 mg 800 mg PO QAM 03/08/23 03/08/23 History tablet,extended release,12 hr cholecalciferol (vitamin D3) 25 25 mcg PO DAILY 03/08/23 03/08/23 History mcg (1,000 unit) capsule (Vitamin D3) cyanocobalamin (vitamin B-12) 500 500 mcg PO DAILY 03/08/23 03/08/23 History mcg tablet (Vitamin B-12) cyclobenzaprine 10 mg tablet 10 mg PO TID PRN MUSCLE SPASMS 03/08/23 03/08/23 History ferrous sulfate 27 mg iron tablet 27 mg PO DAILY 03/08/23 03/08/23 History linaclotide 145 mcg capsule 145 mcg PO DAILYBB 03/08/23 03/08/23 History (Linzess) loratadine 10 mg tablet (Claritin) 10 mg PO HS 03/08/23 03/08/23 History magnesium oxide 200 mg PO DAILY 03/08/23 03/08/23 History multivit-iron 18 mg-folic acid 400 1 tab PO QAM 03/08/23 03/08/23 History mcg-calcium 500 mg-minerals tablet (Women's One Daily) naltrexone 50 mg tablet 50 mg PO DAILY 03/08/23 03/08/23 History propranolol 20 mg tablet 10 mg PO DIRECTED PRN Anxiety 03/08/23 03/08/23 History turmeric root extract 500 mg tablet 500 mg PO DAILY 03/08/23 03/08/23 History Patient History Medical History Abnormal brain MRI Alcohol withdrawal pt denies Alcohol withdrawal Alcoholic cerebellar degeneration Anxiety and depression Asthma "EPISODIC ASTHMA" NO INHALER Attention deficit disorder (ADD) Bilateral lumbar radiculopathy Bipolar disorder Chronic alcohol abuse pt denies Degenerative disc disease Fall Fibromyalgia GERD (gastroesophageal reflux disease) Hx of migraines Insulin resistance Post traumatic stress disorder Spinal stenosis Transaminitis Weakness Surgical History History of cholecystectomy History of discectomy LUMBAR (X 3) History of esophagogastroduodenoscopy (EGD) History of spinal fusion LUMBAR [place] teeth removed Family History (Updated 06/18/22 @ 14:36 by Vera Wagner RN) Mother Diabetes Social History Smoking Status: Current some day smoker Tobacco Type: E-cigarettes / Vaping Second Hand Exposure: No; Do You Dip or Chew Tobacco: No; Tobacco Cessation Education Requested by Patient: No Hx Alcohol Use: No Hx Substance Use: No Preferred Language: Ukrainian Communication Ability: Effective 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 Beliefs That Will Affect Care: None marital status: Single Current Living Situation: Parent Current Living Situation Comment: roomate current occupational status: unemployed and disabled Other Information That Helps Us Care for You: No Feels Safe at Home: Yes Safety Concerns: Feels Safe At This Time Assistive Devices: None Review of Systems Constitutional: no fever and no chills Eyes: no blind spots and no diplopia Ear, Nose, Mouth, Throat: no hearing loss Respiratory: no cough and no dyspnea Cardiovascular: no chest pain and no palpitations Gastrointestinal: no nausea and no vomiting Genitourinary: no urinary incontinence Musculoskeletal: no neck pain and no myalgia Integumentary: no rash and no lesions Neurologic: as per Subjective / HPI; no gait abnormality, no localized weakness, no loss of sensation, no tremor(s), no seizure-like activity, no confusion and no memory loss Psychiatric: + irritability Hematologic / Lymphatic: no easy bleeding and no easy bruising Exam (Neuro) Constitutional: well developed and well nourished; no acute distress Eyes: normal visual hoskins by confrontation, PERRL, normal accommodation and EOM intact bilaterally; no fundoscopic abnormality, no nystagmus and no papilledema Cardiovascular: Vessels: normal carotid upstroke; no carotid bruit Neurologic: Oriented to:: Person, Place and Time Memory: Short Term Intact and Remote Intact Attention: Span Intact and Concentration Intact Language: Naming Objects and Repeating Phrases Speech Fluency: negative Dysarthria Speech Aphasia: negative Aphasia Fund of Knowledge: Current Events, Past History and Vocabulary Cranial Nerves: Normal II (Visual hoskins full to confrontation, visual acuity normal), III, IV, (Pupils equal round reactive to light and accommodation, eye movements normal), V (Facial sensation intact), VII (There is no facial droop or weakness), VIII (Hearing intact), IX, X (Palate elevates to midline), XI (Shoulder shrug intact) and XII (Tongue protrudes to midline) Motor Strength: Normal Lower Extremities and Normal Upper Extremities; negative Pronator Drift Motor Tone: Normal Lower Extremities and Normal Upper Extremities Muscle Bulk/Involuntary Movements: No Involuntary Movements; negative Muscle Atrophy Sensation: Light Touch Intact, Pain/Temperature Intact, Vibration Intact and Proprioception Intact Coordination: Normal; negative Limited Balance, Dysdiadochokinesia, Finger-Nose Abnormal or Heel-Hector Abnormal Deep Tendon Reflexes: Rt Triceps: 2+, Lt Triceps: 2+, Rt Biceps: 2+, Lt Biceps: 2+, Rt Brachioradialis: 2+, Lt Brachioradialis: 2+, Rt Patellar: 2+, Lt Patellar: 2+, Rt Ankle: 2+ and Lt Ankle: 2+ Special Tests: negative Babinski Present Gait: Normal Station and Gait Results & Data Vital Signs (Past 12 Hours) Vital Signs Temp Pulse Pulse Resp BP BP Pulse Ox 03/08/23 07:46 36.7 C 85 20 123/89 99 03/08/23 06:25 36.7 C 85 18 123/88 100 03/08/23 05:56 03/08/23 03:00 86 16 99 03/08/23 03:00 131/94 03/08/23 02:01 126/81 03/08/23 02:01 91 H 17 03/08/23 01:03 92 H 03/08/23 01:45 88 16 105/74 96 03/08/23 00:45 36.5 C 106 H 20 156/79 H 100 O2 Del Method 03/08/23 07:46 Room Air 03/08/23 06:25 Room Air 03/08/23 05:56 Room Air 03/08/23 03:00 Room Air 03/08/23 03:00 03/08/23 02:01 03/08/23 02:01 03/08/23 01:03 03/08/23 01:45 Room Air 03/08/23 00:45 Room Air Laboratory Results WBC 6.24, hemoglobin 12.7, hematocrit 38.1, platelet count 211, sodium 138, potassium 3.9, BUN 20, creatinine 0.78, glucose 98, calcium 8.5, AST 32, ALT 61, ammonia 33.0, TSH 2.693, Lyme screening negative Coding Level of Care Code 77497 INT INP/OBS CARE MIN Diagnoses Slurred speech R47.81
[2023-03-08] MEDS ORDERED: GABAPENTIN 400 MG CAP PO SCH (09:00)
[2023-03-08] MEDS ORDERED: POLYETHYLENE (MIRALAX) 17 GM PACK PO SCH (09:00)
[2023-03-08] MEDS ORDERED: ADVANCED PROBIOTIC 1250 MG CAPSULE PO SCH (09:00)
[2023-03-08] MEDS ORDERED: NALTREXONE HCL 50 MG TAB PO SCH (09:00)
[2023-03-08] MEDS ORDERED: CEROVITE ADV FORMULA TAB PO SCH (09:00)
[2023-03-08] MEDS ORDERED: BENZTROPINE MESYLATE 0.5 MG TAB PO SCH (09:00)
[2023-03-08] MEDS ORDERED: ENOXAPARIN INJ 40 MG/0.4 ML SYR SQ SCH (09:00)
[2023-03-08] MEDS ORDERED: NON-FORMULARY MEDICATION (Ferrous Sulfate 27 mg iron Tablet) PO SCH (09:00)
[2023-03-08] MEDS ORDERED: CYANOCOBALAMIN (B-12) 500 MCG TABLET PO SCH (09:00)
[2023-03-08] MEDS ORDERED: FLUTICASONE/VILANTEROL 200/25MCG 14 PUFFS/INHALER INH SCH (09:00)
[2023-03-08] MEDS ORDERED: AMPHETAMINE ASP/SULF/DEXTRAMPH 20 MG TAB PO SCH (09:00)
[2023-03-08] MEDS ORDERED: FLUTICASONE PROPIONATE NA SPR 16 GM BTL SCH (09:00)
[2023-03-08] MEDS ORDERED: PANTOprazole 40 MG TAB PO SCH (09:00)
--- NOTE | 2023-03-08 11:01 | Electrocardiogram Report ---
Test Reason : Blood Pressure : / mmHG Vent. Rate : 100 BPM Atrial Rate : 100 BPM P-R Int : 110 ms QRS Dur : 080 ms QT Int : 364 ms P-R-T Axes : 017 001 014 degrees QTc Int : 469 ms Sinus rhythm with short UT Otherwise normal ECG When compared with ECG of 22-SEP-2019 19:30, No significant change was found Confirmed by Shalom Mahoney ([id number]) on 03/08/2023 11:01:42 AM Referred By: REFERRED SELF Confirmed By:Shalom Mahoney
--- NOTE | 2023-03-08 15:23 | Communication Note ---
Date of Service: March 08, 2023 Patient seen at bedside. Patient reports that her symptoms have completely resolved. She denied any headache, vision changes, chest pain, shortness of breath, weakness or numbness of any body part. She was saturating well on room air. Afebrile and normotensive. She was evaluated by neurology; no further recommendation or test required. Discussed with the patient regarding need for further monitoring inpatient given her symptoms. I explained to her that she needs to undergo CT angio to rule out PE given the transient hypoxemia prior to presentation to the hospital. Patient had reported her oxygen saturation was in 70s at home prior to presentation. I explained to her the risks of foregoing monitoring and treatment. The risks included stroke, seizures, respiratory failure and . Patient verbalized understanding. She declined to undergo any further tests or remain in the hospital for further monitoring. She was alert oriented x3 while making the decision to leave the hospital against medical advice. I explained that she can return to the emergency department anytime if her symptoms recur.
--- NOTE | 2023-03-08 15:29 | Discharge Summary ---
Date of Service March 08, 2023 Admission HPI Per Admitting Provider History obtained from patient and records. Medical history significant for hypertension, bronchial asthma, anxiety/mood disorder, fibromyalgia, migraine, chronic back pain status post surgery IBS constipation predominant, past tobacco/alcohol abuse. Last confinement May 2022 for ambulatory dysfunction and falls in the setting of alcohol abuse. MRI showed asymmetric thickening of the left dura/extra-axial space. Concern for alcoholic cerebellar degeneration as per Neurology. Symptoms eventually improved as per patient. Last week, patient noted worsening generalized weakness, gait imbalance, headache, bilateral ear pain/fullness without discharge, sore throat, tingling numbness all over. O2 sats 80s on home pulse ox, heart rate 110s as per patient. Some shortness of breath without chest pain. Transient right-sided abdominal pain. No cough symptoms. No known sick contacts. Patient completed COVID-19 vaccination. Patient has concerns about possible refrigerant poisoning at home. Yesterday, patient noted to have slurred speech. Increased difficulty in ambulation noted. No recent changes in home medications. Denies recent EtOH intake. Patient brought to the ER for evaluation for worsening symptoms. Medical History as above Surgical History : Back surgery, cholecystectomy, Family History : Breast cancer, DM, heart disease, RA Personal/Social history : Past tobacco/alcohol abuse, disabled Principal Diagnosis Slurred speech, severe rule out. Transient hypoxemia Discharge Exam Constitutional: WD/WN, vitals as above, NAD, sitting up in bed, pleasant, conversing easily Respiratory: normal respiratory effort, lungs clear to auscultation, no wheeze, rales, rhonchi. Normal insp/exp effort, no accessory muscle use Cardiovascular: RRR, no murmur, no edema Vessels: no JVD or carotid bruit Chest: normal inspection of chest Abdomen: normal bowel sounds, soft, nontender, no hepatosplenomegaly Musculoskeletal: no cyanosis or clubbing, extremities motor strength 5/5 Skin: no rashes, warm and dry normal turgor Neurologic: PERRL, EOMI, accommodation nl, no face palsy, no dysarthria CN's II- XI intact bilaterally and moves all extremities Psychiatric: A+Ox3, euthymic affect Discharge Data Allergies Allergy/AdvReac Type Severity Reaction Status Date / Time Sulfa (Sulfonamide Allergy Severe anaphylaxis Verified 03/08/23 01:36 Antibiotics) Consultations 03/08/23 02:39 ED Decision to Admit Stat 03/08/23 03:37 Consult Neurology Routine Ordered Studies 03/08/23 01:02 CT head/brain wo con Stat 03/08/23 03:37 Carotid duplex [US carotid doppler BI] Routine MR brain wo/w con Stat Hospital Course (1) Slurred speech: Patient presented to the ED with complaints of generalized weakness, gait and balance and headache. She also reported low oxygenation saturation at home along with tachycardia. On presentation to the ED, patient was afebrile, normotensive and saturating well in room air. Patient underwent stroke work-up including brain MRI. Brain MRI did not show any stroke. Patient was noted to have slightly elevated carbamazepine level. Poison control was contacted; recommended to repeat level again. Repeat carbamazepine level was within normal limits. No further recommendation from poison control. Inpatient neurology consult was done. No other recommendation were given. Slurred speech has resolved. Patient was evaluated in the morning. Discussed with the patient regarding need for further monitoring inpatient given her symptoms I explained to her that she needs to undergo CT angio to rule out PE given the transient hypoxemia prior to presentation to the hospital. I explained to her the risks of foregoing monitoring and treatment. The risks included stroke, seizures, respiratory failure and . Patient verbalized understanding. She declined to undergo any further tests or remain in the hospital for further monitoring. She was alert oriented x3 while making the decision to leave the hospital against medical advice. I explained that she can return to the emergency department anytime if her symptoms recur. Total Time Total Time Spent Total Time Spent (In Minutes): 50 Total Time Includes: Examination of the Patient, Discharge Planning, Medication Reconciliation, Communication With Other Providers and Other Discharge Plan Discharge Items Patient Disposition: Against Medical Advice Reason For Visit: SLURRED SPEECH Discharge Diagnosis: Slurred Speech Elevated Carbamazepine Activity: Resume your previous activity Non-emergency contact: Primary Care Provider Call non-emergency contact if: you have any medication questions and your symptoms worsen Follow-up/Referrals: Stacia Arreola MD [Primary Care Provider] - Diet: Regular Addtl Attending Provider Instructions: You were admitted to the hospital with slurred speech. MRI was done which did not show a stroke. No changes were made to your medication regimen. Please follow-up with your primary care doctor. Pending Studies at Discharge: No Stand-Alone Forms: [employer], Smoking Cessation Medications and DC Order Prescriptions: Continued gabapentin 400 mg Capsule 400 mg PO TID Rx Instructions: Take in am, noon, hs meloxicam 7.5 mg tablet 7.5 - 15 mg PO QAM PRN (Reason: Pain) benztropine 0.5 mg tablet 0.5 mg PO QAM trazodone 50 mg tablet 50 - 100 mg PO HS ondansetron HCl 4 mg tablet 4 mg PO Q6H PRN (Reason: Nausea) amlodipine 10 mg tablet 10 mg PO QAM dextroamphetamine-amphetamine 20 mg tablet 30 mg PO QAM hydrochlorothiazide 12.5 mg capsule 12.5 mg PO QAM omeprazole 20 mg capsule,delayed release(DR/EC) 20 mg PO QAM lorazepam 1 mg tablet 1 mg PO HS PRN (Reason: SLEEP/ANXIETY) clomipramine 25 mg capsule 25 mg PO HS fluticasone propionate 50 mcg/actuation spray,suspension 2 spray INTRANASAL BID medroxyprogesterone 150 mg/mL suspension 150 mg IM .Q3MO Rexulti 1 mg tablet 1 mg PO QAM Hair,Skin and Nails Tablet 1 tab PO QAM milk thistle 175 mg Tablet 175 mg PO QAM Rx Instructions: give with meal/snack omega 7-yte-eep-fish oil [Fish Oil] 1,000 mg (120 mg-180 mg) Capsule 1 cap PO QAM polyethylene glycol 3350 [Miralax] 17 gram/dose Powder 17 g PO QAM albuterol sulfate [Ventolin HFA] 90 mcg/actuation Hfa Aerosol Inhaler 2 inh INHALATION Q4H PRN (Reason: Wheezing/COLD SYMPTOMS) fluticasone furoate-vilanterol [Breo Ellipta] 200-25 mcg/dose Blister With Device 1 inh INHALATION QAM Citrucel 500 mg Tablet 500 mg PO BID cyclobenzaprine 10 mg Tablet 10 mg PO TID PRN (Reason: MUSCLE SPASMS) acetic acid 2 % Solution 3 drp OTL TID Rx Instructions: apply to (cotton) wick; replace wick every 24 hours albuterol sulfate 2.5 mg /3 mL (0.083 %) Solution For Nebulization 2.5 mg INHALATION QID PRN (Reason: CONGESTION/COLD SYMPTOMS) naltrexone 50 mg Tablet 50 mg PO DAILY carbamazepine 400 mg tablet extended release 12 hr 800 mg PO QAM Rx Instructions: PER [facility], "PT TAKES 3-200 MG TABS DAILY". cyanocobalamin (vitamin B-12) [Vitamin B-12] 500 mcg Tablet 500 mcg PO DAILY propranolol 20 mg tablet 10 mg PO DIRECTED PRN (Reason: Anxiety) loratadine [Claritin] 10 mg Tablet 10 mg PO HS cholecalciferol (vitamin D3) [Vitamin D3] 25 mcg (1,000 unit) Capsule 25 mcg PO DAILY ferrous sulfate 27 mg iron Tablet 27 mg PO DAILY Align 4 mg Capsule 4 mg PO BID bimatoprost [Latisse] 0.03 % Drops With Applicator 1 applic TOPICAL HS PRN (Reason: AFFECTED AREA NEEDED) Women's One Daily 18 mg iron-400 mcg-500 mg Ca Tablet 1 tab PO QAM Linzess 145 mcg Capsule 145 mcg PO DAILYBB magnesium oxide 200 mg magnesium Tablet 200 mg PO DAILY turmeric root extract 500 mg Tablet 500 mg PO DAILY Discharge Orders: Left Against Medical Advice (Routine); Ordered 03/08/23 Ordered By: Wilfredo Antony Admission Data Admit Date/Time: 03/08/23 03:33 Attending Provider: Wilfredo Antony Admit Provider: Jose Hines Primary Care Provider: Stacia Arreola Other Providers: Harjinder Real ; Bernardino Storm ; Mary Langley ; John Miranda ; Mary Johnson ; Enrike Keating ; John Galloway ; Shalom Vincent ; Pearl Wheeler ; Hernán Yang ; Siva Ge ; Lito Velásquez ; Hong Castro ; Sarah Shi ; Jose Hines Other Interventions: Discharge Summary Assessment (RN) Last Done: 03/08/23 12:03
[2023-03-08] MEDS ORDERED: traZODone HCL 50 MG TAB PO SCH (21:00)
[2023-03-08] MEDS ORDERED: LORATADINE 10 MG TAB PO SCH (21:00)
[2023-03-09] MEDS ORDERED: ASPIRIN 81 MG ECTAB PO SCH (09:00)
== END 2023-03-08 10:39 | disposition left against medical advice (07) ==
LOC: ED 00:41 → 2W 00:41